=== PATIENT | male | born 1945 | race Caucasian/White ===

== ENCOUNTER 2020-03-12 08:35 | Outpatient (REF) | payer MEDICARE, SELFPAY ==
--- NOTE | 2020-03-12 11:12 | XR_ITS ---
EXAMINATION: XR BILATERAL SHOULDERS. CLINICAL INFORMATION: Pain in bilateral shoulder. COMPARISON: None TECHNIQUE: 3 views each shoulder. FINDINGS: RIGHT SHOULDER: There is significant loss of glenohumeral joint space with periarticular spurring. The AC joint space is reduced as well. There is a soft tissue calcification along rotator cuff likely secondary to calcific tendinitis or partial tear. No lytic or sclerotic process seen. LEFT SHOULDER: There is mild reduction in left glenohumeral joint space with periarticular spurring. No bony erosive changes or loose bodies seen. AC joint is normal. Mild spurring of greater tuberosity is noted. XR/XR shoulder RT min 2V IMPRESSION: Degenerative arthritic changes bilateral shoulder joints and AC joints. There is a soft tissue calcification along the distal right rotator cuff likely from calcific tendinitis or partial tear. There is soft tissue calcification adjacent to the left greater tuberosity likely from calcific tendinitis or partial tear.
--- NOTE | 2020-03-12 11:12 | XR_ITS ---
EXAMINATION: XR BILATERAL SHOULDERS. CLINICAL INFORMATION: Pain in bilateral shoulder. COMPARISON: None TECHNIQUE: 3 views each shoulder. FINDINGS: RIGHT SHOULDER: There is significant loss of glenohumeral joint space with periarticular spurring. The AC joint space is reduced as well. There is a soft tissue calcification along rotator cuff likely secondary to calcific tendinitis or partial tear. No lytic or sclerotic process seen. LEFT SHOULDER: There is mild reduction in left glenohumeral joint space with periarticular spurring. No bony erosive changes or loose bodies seen. AC joint is normal. Mild spurring of greater tuberosity is noted. XR/XR shoulder LT min 2V IMPRESSION: Degenerative arthritic changes bilateral shoulder joints and AC joints. There is a soft tissue calcification along the distal right rotator cuff likely from calcific tendinitis or partial tear. There is soft tissue calcification adjacent to the left greater tuberosity likely from calcific tendinitis or partial tear.
== END 2020-03-12 08:36 | disposition home or self-care (01) ==
LOC: HO.HOSX 08:35
PROVIDERS: Visit Provider Orthopaedic Surgery
DX: M25.512 Pain in left shoulder (principal); M25.511 Pain in right shoulder
CPT/HCPCS: 73030; 99202

== ENCOUNTER → 2020-03-17 08:47 | Outpatient (REF) | payer MEDICARE, SELFPAY | LOC: HO.SL 08:47 | PROVIDERS: PCP Family Medicine; Visit Provider Family Medicine | DX: R60.0 Localized edema (principal); G47.30 Sleep apnea, unspecified | CPT/HCPCS: 95806 ==

== ENCOUNTER 2020-05-11 09:00 | Outpatient (RCR) | payer MEDICARE, SELFPAY ==
--- NOTE | 2020-03-30 13:51 | MHC.PT.EP ---
[facility] [place] Office [place] Office [place] Office [address] Avi Gamez [address] [phone] F: [phone] F: [phone] F: [phone] F: [phone] Physical Therapy Plan of Care Date of Evaluation: 03/30/20 Date of Surgery: Diagnosis: bilateral OA of shoulders with pain Assessment: The patient has general symmetrical decreased ROM in his cervical spine that seems to be age related. His ROM in his cervical spine is pain free. His shoulder ROM is also globally decreased and relatively pain free. He has 5/5 strength in bilateral UE. He has numbness and tingling in his hands only at night. I did a few CTS special tests which were positive. I recommended him to wear a CTS brace to bring his wrist to neutral to r/o CTS as cause of pain. Frequency and Duration: The patient will be seen 2x/week x 4 weeks Short Term Goals: -Pt to able to demonstrate proper sitting posture with the use of a lumbar roll to decrease aggravating factors. - Pt to be able to demonstrate proper posture for common leisure activities such as crocheting and phone/tablet use. 2 weeks - For the patient to demonstrate proper upright sitting posture with use of the lumbar roll to improve compliance and carryover. Detention Goals: 4 weeks ? The patient to be able to return to all functional reaching, self care ADL's without any limitation from pain or loss of ROM. 4 weeks ? The patient to be able to return to all functional reaching, self care ADL's without any limitation from pain or loss of ROM. Treatment Plan: Modalities to reduce pain, spasms and effusion. Manual therapy to restore motion and function. Therapeutic exercise to improve strength and flexibility. Neuromuscular re-education for posture and balance. Therapeutic activities to return to functional activities of daily living. Electronically signed by: Katty Camacho PT DPT Please sign and return to therapist. Thank you for your referral.
--- NOTE | 2020-06-04 08:48 | MHC.PT.DC ---
[facility] [place] Office [place] Office [place] Office [address] Avi Gamez [address] [phone] F: [phone] F: [phone] F: [phone] F: [phone] Physical Therapy Discharge Report Diagnosis: bilateral OA of shoulders with pain Date of Surgery: Date of Evaluation: 03/30/20 Date of Discharge: 06/04/20 Treatments to Date: 11 Cancellations to Date: 0 No Shows to Date: 0 Discharge Status: Achieved Goals Improved Function Discharge Summary: Pt reports no pain with today's exercises. Pt will was issued a HEP. Exercises printed and in the chart. He was issued theraband for his HEP. Electronically signed by: Katty Camacho PT DPT Please sign and return to therapist. Thank you for your referral.
== END 2020-06-04 15:23 | disposition other institution (70) ==
LOC: HO.PT 09:00
PROVIDERS: PCP Family Medicine; Visit Provider Orthopaedic Surgery
DX: M19.019 Primary osteoarthritis, unspecified shoulder (principal)
CPT/HCPCS: 97110; 97112; 97140; 97162

== ENCOUNTER 2020-05-20 09:29 | Emergency (ER) | payer MEDICARE, SELFPAY ==
--- NOTE | ~2020-05-20 | XR_ITS ---
EXAMINATION: XR CHEST CLINICAL INFORMATION: Dyspnea COMPARISON: Chest radiographs 03/14/2019, 08/23/2013 TECHNIQUE: Portable upright AP view of the chest was obtained. FINDINGS: There is enlarged cardiopericardial silhouette similar to prior studies. There is been prior median sternotomy. The vascularity is normal. There is no vascular congestion or airspace consolidation or effusion. No pneumothorax or pleural reaction. The visualized hilar and mediastinal contours and bony structures are unremarkable. XR/XR chest 1V IMPRESSION: No acute intrathoracic disease.
--- NOTE | 2020-05-20 09:34 | ED_ITS ---
HPI - URI/Sore Throat General Chief Complaint: Upper Respiratory Symptoms Stated Complaint: FLU LIKE Time Seen by Provider: 05/20/20 09:34 Source: patient and endocrinology specialist Mode of arrival: ambulatory Limitations: no limitations History of Present Illness MD elicited complaint: fever, cough, rhinorrhea and nasal congestion Onset (ago): day(s) (2) Consistency: constant Severity: mild Description of mucous: clear Able to tolerate fluids by mouth: Yes Exacerbating factors: nothing Relieving factors: nothing Context: sick contacts (lives with daughter who tested positive for COVID 2 weeks ago) Associated symptoms: fever, chills, myalgias, rhinorrhea, cough, chest pain and nausea Treatments prior to arrival: none Related Data Home Medications Medication Instructions Recorded Confirmed amlodipine 10 mg tablet 10 mg PO DAILY 03/12/20 aspirin 81 mg tablet,delayed 81 mg PO DAILY 03/12/20 release carvedilol 25 mg tablet 25 mg PO BID 03/12/20 cholecalciferol (vitamin D3) SUBLINGUAL 03/12/20 furosemide 40 mg tablet 40 mg PO DAILY 03/12/20 omeprazole 20 mg capsule,delayed 20 mg PO DAILY 03/12/20 release rosuvastatin 10 mg tablet 10 mg PO DAILY 03/12/20 Allergies Allergy/AdvReac Type Severity Reaction Status Date / Time morphine [MORPHINE] Allergy Intermediate HALLUCINATI Unverified 12/11/19 18:09 ONS,TACHYCA RDIA morphine Allergy Unknown chills, Uncoded 11/20/19 00:00 vomiting Review of Systems Review of Systems: Constitutional : pos Fever, No Chills ENT/Mouth : No sore throat, pos Rhinorrhea, No Swallowing Difficulty Eyes: No Eye Pain, No Swelling, No Redness Cardiovascular : pos Chest Pain, positive SOB, No Orthopnea, positive chronic bilateral Edema Respiratory : No Cough, No Sputum, No Wheezing, positive dyspnea Gastrointestinal : pos Nausea, No Vomiting, No Diarrhea, No abdominal Pain, No Hematochezia, No Melena Genitourinary : No Dysuria, No Urinary Frequency, No Hematuria Musculoskeletal : No joint pain, pos Myalgias Skin : No Skin Lesions, No rash Neuro : No Weakness, No Numbness, No Dizziness, No Headache Psych : No Anxiety/Panic, No Depression Heme/Lymph: No Bruising, No Lymphadenopathy Endocrine : No Polyuria, No Polydipsia All other systems reviewed and are negative PMFSH Past Medical History Medical History Diabetes Hypertension Surgical History History of open heart surgery Social History Social History Alcohol intake: never Smoking Status: Never smoker Use of substances other than those prescribed or required for medical reasons: No Advance Directives: No Advance Directives Information Provided: No 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al status: retired 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 Physical Exam Vital Signs: Vital Signs: Last Vital Signs Temp 99.1 F 05/20/20 10:14 Pulse 68 05/20/20 12:07 Resp 16 05/20/20 12:07 BP 148/67 H 05/20/20 12:07 Pulse Ox 97 05/20/20 12:07 Body Mass Index 29.0 Appearance: Alert. Oriented X3. No acute distress. Eyes: Pupils equal, round and reactive to light. ENT: Pharynx normal. Neck: Normal inspection. Neck supple. CVS: Normal heart rate and rhythm. Pulses normal. Respiratory: No respiratory distress. Breath sounds normal. Abdomen: Soft and nontender. Skin: Skin warm and dry. Normal skin color. Normal skin turgor. Extremities: No lower extremity edema. No calf ttp Neuro: Oriented X 3. No motor deficit. No sensory deficit. Course Course Course Narrative: EKG nonischemic, repeat trop flat CXR negative, no hypoxia stable for DC at this time renal at baseline MDM - URI/Sore Throat MDM Narrative Medical decision making narrative: 74 yo male two days of body aches, nausea, cough, runny nose, some vague chest tightness, no dyspnea no hypoxia chronic LE edema - lives with daughter who tested positive for COVID 2 weeks ago at this time not toxic, no tachycardia or hypoxia no calf pain doubt PE - will obtain basic labs, EKG, CXR, COVID swab, troponin x 1, tylenol Lab Data Result diagrams: 05/20/20 10:03 05/20/20 10:03 Labs: Lab Results 05/20/20 05/20/20 05/20/20 Range/Units 10:03 10:03 10:03 WBC 4.5 L (4.8-10.8) X10*3/uL RBC 3.45 L (4.60-5.80) X10*6/uL Hgb 10.9 L (14.0-18.0) g/dl Hct 31.4 L (42-52) % MCV 91.0 (80-98) fL MCH 31.6 (27.0-33.0) pg MCHC 34.7 (31.0-36.0) g/dl RDW 13.2 (11.0-16.0) % Plt Count 154 L (160-400) X10*3/uL MPV 10.7 (9.4-12.4) fL Immature Gran % (Auto) 0.2 (0.0-0.4) % Neut % (Auto) 71.8 (45-73) % Lymph % (Auto) 15.0 L (20-40) % [place] % (Auto) 12.3 H (2-11) % Eos % (Auto) 0.7 (0-4) % Baso % (Auto) 0.0 (0-2) % Lymph # (Auto) 0.7 L (1.2-4.9) X10*3/uL [place] # (Auto) 0.6 (0.1-1.2) X10*3/uL Eos # (Auto) 0.0 (0.0-0.4) X10*3/uL Baso # (Auto) 0.0 (0.0-0.2) X10*3/uL Abs Immat Gran (auto) 0.01 (0.00-0.03) X10*3/uL Absolute Neuts (auto) 3.3 (2.0-8.3) X10*3/uL Absolute Nucleated RBC 0.000 (0.0-0.012) X10*3/uL Nucleated RBC % (auto) 0.0 (0.0-0.2) /100WBC Smear Tech's Comments VERIFIED Hold Blue Top SEE NOTE Sodium 137 (135-145) mmol/L Potassium 3.8 (3.3-5.1) mmol/L Chloride 103 (96-108) mmol/L Carbon Dioxide 25 (22-29) mmol/L Anion Gap 13 (12-20) BUN 17 H (9-16) mg/dL Creatinine 2.16 H (0.5-1.4) mg/dL Estim Creat Clear Calc 32.0 Estimated GFR 30 Random Glucose 273 H (60-115) mg/dL Calcium 8.6 (8.4-10.2) mg/dL Magnesium 1.5 L (1.6-2.6) mg/dL Ferritin 271 H (20-250) ng/mL Total Bilirubin 0.3 (0.0-1.0) mg/dL Direct Bilirubin 0.2 (0.0-0.5) mg/dL AST 32 (5-37) U/L ALT 15 (0-40) U/L Alkaline Phosphatase 29 L (39-117) U/L Lactate Dehydrogenase 193 (118-273) U/L Troponin I High Sens (<3.5-35.0) ng/L B-Natriuretic Peptide (<100) pg/mL Total Protein 6.0 L (6.5-8.0) g/dL Albumin 3.4 L (3.5-5.0) g/dL Coronavirus (PCR) (Negative) Influenza Type A (PCR) (Negative) Influenza Type B (PCR) (Negative) RSV RNA Qual (PCR) (Negative) 05/20/20 05/20/20 05/20/20 Range/Units 10:03 10:03 12:40 WBC (4.8-10.8) X10*3/uL RBC (4.60-5.80) X10*6/uL Hgb (14.0-18.0) g/dl Hct (42-52) % MCV (80-98) fL MCH (27.0-33.0) pg MCHC (31.0-36.0) g/dl RDW (11.0-16.0) % Plt Count (160-400) X10*3/uL MPV (9.4-12.4) fL Immature Gran % (Auto) (0.0-0.4) % Neut % (Auto) (45-73) % Lymph % (Auto) (20-40) % [place] % (Auto) (2-11) % Eos % (Auto) (0-4) % Baso % (Auto) (0-2) % Lymph # (Auto) (1.2-4.9) X10*3/uL [place] # (Auto) (0.1-1.2) X10*3/uL Eos # (Auto) (0.0-0.4) X10*3/uL Baso # (Auto) (0.0-0.2) X10*3/uL Abs Immat Gran (auto) (0.00-0.03) X10*3/uL Absolute Neuts (auto) (2.0-8.3) X10*3/uL Absolute Nucleated RBC (0.0-0.012) X10*3/uL Nucleated RBC % (auto) (0.0-0.2) /100WBC Smear Tech's Comments Hold Blue Top Sodium (135-145) mmol/L Potassium (3.3-5.1) mmol/L Chloride (96-108) mmol/L Carbon Dioxide (22-29) mmol/L Anion Gap (12-20) BUN (9-16) mg/dL Creatinine (0.5-1.4) mg/dL Estim Creat Clear Calc Estimated GFR Random Glucose (60-115) mg/dL Calcium (8.4-10.2) mg/dL Magnesium (1.6-2.6) mg/dL Ferritin (20-250) ng/mL Total Bilirubin (0.0-1.0) mg/dL Direct Bilirubin (0.0-0.5) mg/dL AST (5-37) U/L ALT (0-40) U/L Alkaline Phosphatase (39-117) U/L Lactate Dehydrogenase (118-273) U/L Troponin I High Sens 37.2 H 41.4 H (<3.5-35.0) ng/L B-Natriuretic Peptide 282 H (<100) pg/mL Total Protein (6.5-8.0) g/dL Albumin (3.5-5.0) g/dL Coronavirus (PCR) POSITIVE A (Negative) Influenza Type A (PCR) NEGATIVE (Negative) Influenza Type B (PCR) NEGATIVE (Negative) RSV RNA Qual (PCR) NEGATIVE (Negative) ECG Data Attestation: I personally reviewed and interpreted this ECG as follows: ECG interpretation date: 05/20/20 ECG interpretation time: 10:09 Interpretation: Rate: 75 Rhythm: NSR [place]: normal Normal P waves. Normal AKSHAT. incomplete RBBB ST T wave : nonspecific, no BRENT qTC: normal prior studies: no change from 11/2013 The study has been interpreted contemporaneously by me. . Discharge Plan Discharge Clinical Impression: COVID-19 Patient Disposition: Home, Self-Care Instructions: COVID-19 (Coronavirus Disease 2019) (ED) Additional Instructions: return to ED for any worsening symptoms or concerns IF YOU ARE SO SHORT OF BREATH YOU CANNOT WALK TO YOUR BATHROOM COME BACK TO THE ED Print Language: Micronesian
[2020-05-20 09:46] VITALS: BP 157/75; PULSE 79; RESP 20; TEMP 37.3; O2SAT 97; BMI 29.0
--- NOTE | 2020-05-20 09:51 | ECG_ITS ---
Test Reason : SOB Blood Pressure : / mmHG Vent. Rate : 075 BPM Atrial Rate : 075 BPM P-R Int : 162 ms QRS Dur : 104 ms QT Int : 394 ms P-R-T Axes : 039 026 -21 degrees QTc Int : 439 ms Sinus rhythm with Premature atrial complexes Incomplete right bundle branch block Nonspecific ST abnormality Abnormal ECG When compared to the previous EKG of Premature atrial complexes are now Present Referred By: Nighat Goldsmith Electronically Signed By:EDISON DODSON MD
[2020-05-20 09:53] VITALS: BP 157/75; PULSE 79; RESP 20; TEMP 37.3; O2SAT 97
[2020-05-20 10:14] VITALS: BP 157/75; PULSE 79; RESP 20; TEMP 37.3; O2SAT 97
[2020-05-20 10:16] LABS: Eosinophils Percent Auto 0.7 % (0-4); Hematocrit 31.4 % (42-52); Hemoglobin 10.9 g/dl (14.0-18.0); Imm Gran Abs Auto 0.01 X10*3/uL (0.00-0.03); Imm Gran Pct Auto 0.2 % (0.0-0.4); Lymphocytes Absolute Auto 0.7 X10*3/uL (1.2-4.9); MANUAL DIFF FLAG SCAN; Mean Corpuscular HGB Conc 34.7 g/dl (31.0-36.0); Mean Corpuscular Hemoglobin 31.6 pg (27.0-33.0); Mean Platelet Volume 10.7 fL (9.4-12.4); Monocytes Absolute Auto 0.6 X10*3/uL (0.1-1.2); Monocytes Percent Auto 12.3 % (2-11); Neutrophils Absolute Auto 3.3 X10*3/uL (2.0-8.3); Neutrophils Percent Auto 71.8 % (45-73); Platelet Count 154 X10*3/uL (160-400); Red Blood Count 3.45 X10*6/uL (4.60-5.80); Red Cell Distribution Width 13.2 % (11.0-16.0); SCAN SMEAR FLAG 1; White Blood Count 4.5 X10*3/uL (4.8-10.8)
[2020-05-20] MEDS: Acetaminophen 325 MG TABLET 650 MG PO (10:31)
[2020-05-20 10:32] VITALS: BP 143/71; PULSE 73; RESP 16; O2SAT 96
[2020-05-20 10:40] LABS: Alanine Aminotransferase 15 U/L (0-40); Albumin Level 3.4 g/dL (3.5-5.0); Alkaline Phosphatase 29 U/L (39-117); Anion Gap 13 (12-20); Aspartate Amino Transferase 32 U/L (5-37); Bilirubin Direct 0.2 mg/dL (0.0-0.5); Bilirubin Total 0.3 mg/dL (0.0-1.0); Blood Urea Nitrogen 17 mg/dL (9-16); Calcium 8.6 mg/dL (8.4-10.2); Carbon Dioxide 25 mmol/L (22-29); Chloride 103 mmol/L (96-108); Estimated Glomerular Filt Rate 30; Glucose Random 273 mg/dL (60-115); Lactate Dehydrogenase 193 U/L (118-273); Magnesium 1.5 mg/dL (1.6-2.6); Potassium 3.8 mmol/L (3.3-5.1); Sodium 137 mmol/L (135-145)
[2020-05-20 10:43] LABS: SLIDE REVIEW VERIFIED
[2020-05-20 10:53] LABS: Influenza A PCR NEGATIVE (Negative); Influenza B PCR NEGATIVE (Negative); Resp Syncy Virus RNA Qual PCR NEGATIVE (Negative); SARS COV2 PCR INHOUSE POSITIVE (Negative)
[2020-05-20 10:56] LABS: B Type Natriuretic Peptide 282 pg/mL (<100); Troponin-I High Sensitivity 37.2 ng/L (<3.5-35.0)
[2020-05-20 11:02] LABS: Ferritin 271 ng/mL (20-250)
[2020-05-20] MEDS: Magnesium Oxide 400 MG TABLET 800 MG PO (12:06)
[2020-05-20 12:07] VITALS: BP 148/67; PULSE 68; RESP 16; O2SAT 97
[2020-05-20 13:20] LABS: Troponin-I High Sensitivity 41.4 ng/L (<3.5-35.0)
== END 2020-05-20 13:45 | disposition home or self-care (01) ==
PROVIDERS: Emergency Provider Emergency Medicine; PCP Family Medicine
DX: U07.1 COVID-19 (principal); R50.9 Fever, unspecified; E11.9 Type 2 diabetes mellitus without complications; I10 Essential (primary) hypertension; Z79.899 Other long term (current) drug therapy
CPT/HCPCS: 0241U; 36415; 71045; 80048; 80076; 82728; 83615; 83735; 83880; 84484; 85025; 93005; 99284; 99285

== ENCOUNTER 2020-05-26 10:16 | Inpatient (IN) | payer MEDICARE, SELFPAY ==
--- NOTE | ~2020-05-26 | CT_ITS ---
EXAMINATION: CT ABDOMEN AND PELVIS WITHOUT CONTRAST CLINICAL INFORMATION: Pain right upper quadrant and right lower quadrant. Black stool. COMPARISON: CT abdomen and pelvis noncontrast 12/12/2013. TECHNIQUE: Multidetector volumetric imaging was performed from the superior aspect of the liver through the pubic symphysis. Sagittal and coronal reformatted images were obtained on the technologist's workstation. No oral or intravenous contrast. This CT examination was performed using dose optimization techniques as appropriate, variously including the following: *Automated exposure control *Adjustment of mA and/or kV according to patient size (this includes techniques or standardized protocols for targeted exams where dose is matched to indication/reason for exam; i.e. extremities or head) *Use of iterative reconstruction technique DLP: 658 mGy-cm FINDINGS: LUNG BASES: There are scattered accentuated subpleural lines and posterior dependent atelectasis. There is nonspecific subpleural opacity right anterior base extending beyond the [id number], 0.8 cm. LIVER, GALLBLADDER, AND BILIARY TREE: Liver is normal in size and smooth in contour and uniform in attenuation. No focal hepatic parenchymal lesion on noncontrast exam or intrahepatic ductal dilatation. Prior cholecystectomy. Common duct unremarkable. PANCREAS: Unremarkable. SPLEEN: Unremarkable. ADRENAL GLANDS: Unremarkable. KIDNEYS AND URETERS: The kidneys are similar in size and uniform in attenuation. There is no hydronephrosis or hydroureter. No visible urinary tract calculi. There are accentuated perinephric space septations similar to prior exam, chronic finding. There is respiratory motion artifact. BLADDER: Chronic posterior right bladder diverticulum approximately 3.1 x 1.7 cm. Prior measurement 2.8 x 1[address] 2014. GASTROINTESTINAL TRACT: Prior right hemicolectomy with ileocolic anastomosis. There is no obstruction or focal inflammatory changes in the bowel or mesentery. No pneumatosis or free air. No ascites or fluid collection. ABDOMINAL WALL: Chronic fat-containing left inguinal hernia measuring approximately 3.3 cm in diameter, decreased in size from prior exam 2014. There is some overlying linear scarring in the subcutaneous soft tissues, also decreased. LYMPH NODES: No lymphadenopathy. VASCULAR: Unremarkable. PELVIC VISCERA: Unremarkable. OSSEOUS STRUCTURES: No acute bony abnormality. There are chronic degenerative changes lumbosacral spine, chronic osteitis pubis, and chronic calcific tendinosis at the bilateral ischial tuberosities at origin hamstrings. CT/CT abdomen pelvis wo con IMPRESSION: 1. Prior right hemicolectomy. No bowel obstruction or focal inflammatory changes. 2. Prior cholecystectomy. No ductal dilatation. 3. No hydronephrosis or calculi. 4. Chronic fat-containing left inguinal hernia, decreased from prior exam 2013. 5. Nonspecific 8 mm subpleural density right anterior lung base extending beyond field of view.
[2020-05-26 10:28] VITALS: BP 167/81; PULSE 72; RESP 20; TEMP 37.2; O2SAT 100; BMI 28.8
[2020-05-26 10:50] LABS: Hematocrit 35.4 % (42-52); Hemoglobin 12.5 g/dl (14.0-18.0); Imm Gran Abs Auto 0.01 X10*3/uL (0.00-0.03); Imm Gran Pct Auto 0.3 % (0.0-0.4); Lymphocytes Absolute Auto 0.8 X10*3/uL (1.2-4.9); Lymphocytes Percent Auto 25.2 % (20-40); MANUAL DIFF FLAG NO; Mean Corpuscular HGB Conc 35.3 g/dl (31.0-36.0); Mean Corpuscular Hemoglobin 30.9 pg (27.0-33.0); Mean Corpuscular Volume 87.6 fL (80-98); Mean Platelet Volume 10.7 fL (9.4-12.4); Monocytes Absolute Auto 0.2 X10*3/uL (0.1-1.2); Monocytes Percent Auto 5.8 % (2-11); Neutrophils Absolute Auto 2.3 X10*3/uL (2.0-8.3); Neutrophils Percent Auto 68.7 % (45-73); Platelet Count 144 X10*3/uL (160-400); Red Blood Count 4.04 X10*6/uL (4.60-5.80); Red Cell Distribution Width 12.6 % (11.0-16.0); White Blood Count 3.3 X10*3/uL (4.8-10.8)
[2020-05-26 11:03] LABS: OBS Int Ctl Valid YES; OBS1 NEG (NEG)
[2020-05-26] MEDS: 0.9 % Sodium Chloride 1,000 ML 999 ML IVCONT ×2 (11:09→12:30)
[2020-05-26 11:29] LABS: Alanine Aminotransferase 37 U/L (0-40); Alkaline Phosphatase 36 U/L (39-117); Anion Gap 14 (12-20); Aspartate Amino Transferase 74 U/L (5-37); Bilirubin Total 0.5 mg/dL (0.0-1.0); Calcium 7.8 mg/dL (8.4-10.2); Carbon Dioxide 24 mmol/L (22-29); Chloride 102 mmol/L (96-108); Glucose Random 158 mg/dL (60-115); Potassium 3.7 mmol/L (3.3-5.1); Sodium 136 mmol/L (135-145); Total Protein 5.8 g/dL (6.5-8.0)
--- NOTE | 2020-05-26 11:35 | ED_ITS ---
HPI - Abdominal Pain General Chief Complaint: Abdominal Pain Stated Complaint: covid + abd pain Time Seen by Provider: 05/26/20 10:38 Source: patient Mode of arrival: ambulatory History of Present Illness HPI narrative: 74-year-old male with a past medical history of diabetes, hypertension, open heart surgery, COVID-19 positive on 05/20, presenting to the ED complaining of abdominal pain and diarrhea x5 days with decreased p.o. intake. Admits to black stools x3 days. Denies fever, chills, nausea/vomiting, dysuria/hematuria, cough chest pain, shortness of breath, rectal bleeding Related Data Home Medications Medication Instructions Recorded Confirmed amlodipine 10 mg tablet 10 mg PO DAILY 03/12/20 aspirin 81 mg tablet,delayed 81 mg PO DAILY 03/12/20 release carvedilol 25 mg tablet 25 mg PO BID 03/12/20 cholecalciferol (vitamin D3) SUBLINGUAL 03/12/20 furosemide 40 mg tablet 40 mg PO DAILY 03/12/20 omeprazole 20 mg capsule,delayed 20 mg PO DAILY 03/12/20 release rosuvastatin 10 mg tablet 10 mg PO DAILY 03/12/20 Allergies Allergy/AdvReac Type Severity Reaction Status Date / Time morphine [MORPHINE] Allergy Intermediate HALLUCINATI Unverified 12/11/19 18:09 ONS,TACHYCA RDIA morphine Allergy Unknown chills, Uncoded 11/20/19 00:00 vomiting Review of Systems Review of Systems Constitutional: No Fever, No Chills, +Fatigue, +Malaise Cardiovascular: No Chest Pain, No SOB, No Edema, No Palpitations Respiratory: No Cough, No Wheezing, No Dyspnea Gastrointestinal: No Nausea, No Vomiting, + Diarrhea, No Constipation, + Abdominal pain, No Hematochezia, +black stool Genitourinary: No Dysuria, No Urinary Frequency, No Hematuria, No Flank Pain Musculoskeletal: No joint pain, No Myalgias, No Joint Swelling Skin: No Skin Lesions, No rash Neuro: No Loss of Consciousness, No Dizziness, No Headache Yes all other systems are reviewed and are negative Physical Exam Vital Signs: Vital Signs: Last Vital Signs Temp 99 F 05/26/20 10:28 Pulse 72 05/26/20 10:28 Resp 20 05/26/20 10:28 BP 167/81 H 05/26/20 10:28 Pulse Ox 100 05/26/20 10:28 Body Mass Index 28.8 Const: General: cooperative, healthy appearing and no acute distress Orientation/consciousness: patient oriented x3 Limitations: no limitations HENMT: Head: Yes normal to inspection Ears: hearing grossly normal bilaterally General nose exam: Normal external nose present Face and sinus: Yes normal facial exam Eyes: General: appearance normal, both eyes and all related structures EOM: EOMs intact bilaterally Neck: Neck: Yes normal visual inspection and Yes no meningeal signs Resp: Effort & Inspection: normal respiratory effort Auscultation: clear to auscultation bilaterally, no rales, no rhonchi and no wheezes Cardio: Rate: regular rate Heart sounds: S1 normal heart sound present and S2 normal heart sound present GI: Inspection: Yes normal to inspection Palpation (GI): Soft to palpation, Tenderness to palpation present (GI) in the epigastrum, in the RLQ and in the RUQ; with no rebound tenderness, no guarding and not rigid : General: Yes no CVA tenderness Back/Spine/Pelvis: Back: no CVA tenderness Skin: Rashes: no rashes Wounds: no wounds Neuro: General: patient oriented x3 and no meningeal signs Gait exam (Neuro): Normal gait present Extrem: General: Yes normal to inspection Course Course Course Narrative: -leukopenia as expected from COVID-19. H&H stable. Worsening acute on chronic MERLE with BUN/creatinine 35/4.05 likely from dehydration > will give 2 L IVF and repeat -lipase 115, occult stool negative -UA with RBCs, not infected CT abdomen pelvis wo con IMPRESSION: 1. Prior right hemicolectomy. No bowel obstruction or focal inflammatory changes. 2. Prior cholecystectomy. No ductal dilatation. 3. No hydronephrosis or calculi. 4. Chronic fat-containing left inguinal hernia, decreased from prior exam 2013. 5. Nonspecific 8 mm subpleural density right anterior lung base extending beyond field of view MDM - Abdominal Pain MDM Narrative Medical decision making narrative: 74-year-old male with a past medical history of diabetes, hypertension, open heart surgery, COVID-19 positive on 05/20, presenting to the ED complaining of abdominal pain and diarrhea x5 days with decreased p.o. intake. Admits to black stools x3 days. On exam VSS, NAD/nontoxic-appearing, physical exam as above. Concern for GI bleed vs gastroenteritis or colitis vs cholecystitis/cholelithiasis vs pancreatitis vs appendicitis. Lower concern for diverticulitis Plan: Labs, UA, CT, IVF, re-evaluate Medical Records Attestation: I reviewed the patient's medical records. Lab Data Attestation: I reviewed the patient's lab results. Result diagrams: 05/26/20 10:42 05/26/20 10:42 Labs: Lab Results 05/26/20 05/26/20 05/26/20 Range/Units 10:42 10:42 10:42 WBC 3.3 L (4.8-10.8) X10*3/uL RBC 4.04 L (4.60-5.80) X10*6/uL Hgb 12.5 L (14.0-18.0) g/dl Hct 35.4 L (42-52) % MCV 87.6 (80-98) fL MCH 30.9 (27.0-33.0) pg MCHC 35.3 (31.0-36.0) g/dl RDW 12.6 (11.0-16.0) % Plt Count 144 L (160-400) X10*3/uL MPV 10.7 (9.4-12.4) fL Immature Gran % (Auto) 0.3 (0.0-0.4) % Neut % (Auto) 68.7 (45-73) % Lymph % (Auto) 25.2 (20-40) % [place] % (Auto) 5.8 (2-11) % Eos % (Auto) 0.0 (0-4) % Baso % (Auto) 0.0 (0-2) % Lymph # (Auto) 0.8 L (1.2-4.9) X10*3/uL [place] # (Auto) 0.2 (0.1-1.2) X10*3/uL Eos # (Auto) 0.0 (0.0-0.4) X10*3/uL Baso # (Auto) 0.0 (0.0-0.2) X10*3/uL Abs Immat Gran (auto) 0.01 (0.00-0.03) X10*3/uL Absolute Neuts (auto) 2.3 (2.0-8.3) X10*3/uL Absolute Nucleated RBC 0.000 (0.0-0.012) X10*3/uL Nucleated RBC % (auto) 0.0 (0.0-0.2) /100WBC Hold Blue Top SEE NOTE Sodium 136 (135-145) mmol/L Potassium 3.7 (3.3-5.1) mmol/L Chloride 102 (96-108) mmol/L Carbon Dioxide 24 (22-29) mmol/L Anion Gap 14 (12-20) BUN 35 H D (9-16) mg/dL Creatinine 4.05 H* (0.5-1.4) mg/dL Estim Creat Clear Calc 17.6 Estimated GFR 15 Random Glucose 158 H D (60-115) mg/dL Calcium 7.8 L D (8.4-10.2) mg/dL Magnesium 1.7 (1.6-2.6) mg/dL Total Bilirubin 0.5 (0.0-1.0) mg/dL AST 74 H (5-37) U/L ALT 37 (0-40) U/L Alkaline Phosphatase 36 L D (39-117) U/L Total Protein 5.8 L (6.5-8.0) g/dL Albumin 3.0 L (3.5-5.0) g/dL Lipase 115 H (8-78) U/L Urine Color Urine Appearance Urine pH (5.0-8.0) Ur Specific [place] (1.005-1.025) Urine Protein (NEG-TRACE) MG/DL Urine Glucose (UA) (NEG) MG/DL Urine Ketones (NEG) MG/DL Urine Blood (NEG) Urine Nitrite (NEG) Ur Leukocyte Esterase (NEG) Urine RBC (0) /HPF Urine WBC (0-4) /HPF Ur Squamous Epith Cells /LPF Amorphous Sediment /LPF Urine Bacteria /LPF Urine Mucus /LPF Stool Occult Blood (NEG) 05/26/20 05/26/20 Range/Units 10:53 11:44 WBC (4.8-10.8) X10*3/uL RBC (4.60-5.80) X10*6/uL Hgb (14.0-18.0) g/dl Hct (42-52) % MCV (80-98) fL MCH (27.0-33.0) pg MCHC (31.0-36.0) g/dl RDW (11.0-16.0) % Plt Count (160-400) X10*3/uL MPV (9.4-12.4) fL Immature Gran % (Auto) (0.0-0.4) % Neut % (Auto) (45-73) % Lymph % (Auto) (20-40) % [place] % (Auto) (2-11) % Eos % (Auto) (0-4) % Baso % (Auto) (0-2) % Lymph # (Auto) (1.2-4.9) X10*3/uL [place] # (Auto) (0.1-1.2) X10*3/uL Eos # (Auto) (0.0-0.4) X10*3/uL Baso # (Auto) (0.0-0.2) X10*3/uL Abs Immat Gran (auto) (0.00-0.03) X10*3/uL Absolute Neuts (auto) (2.0-8.3) X10*3/uL Absolute Nucleated RBC (0.0-0.012) X10*3/uL Nucleated RBC % (auto) (0.0-0.2) /100WBC Hold Blue Top Sodium (135-145) mmol/L Potassium (3.3-5.1) mmol/L Chloride (96-108) mmol/L Carbon Dioxide (22-29) mmol/L Anion Gap (12-20) BUN (9-16) mg/dL Creatinine (0.5-1.4) mg/dL Estim Creat Clear Calc Estimated GFR Random Glucose (60-115) mg/dL Calcium (8.4-10.2) mg/dL Magnesium (1.6-2.6) mg/dL Total Bilirubin (0.0-1.0) mg/dL AST (5-37) U/L ALT (0-40) U/L Alkaline Phosphatase (39-117) U/L Total Protein (6.5-8.0) g/dL Albumin (3.5-5.0) g/dL Lipase (8-78) U/L Urine Color YELLOW Urine Appearance CLEAR Urine pH 6.5 (5.0-8.0) Ur Specific [place] 1.015 (1.005-1.025) Urine Protein 3+ H (NEG-TRACE) MG/DL Urine Glucose (UA) 100 H (NEG) MG/DL Urine Ketones NEG (NEG) MG/DL Urine Blood 2+ H (NEG) Urine Nitrite NEG (NEG) Ur Leukocyte Esterase NEG (NEG) Urine RBC 5-9 H (0) /HPF Urine WBC 0-2 (0-4) /HPF Ur Squamous Epith Cells TRACE /LPF Amorphous Sediment 1+ /LPF Urine Bacteria NONE /LPF Urine Mucus TRACE /LPF Stool Occult Blood NEG (NEG) [facility] Past Medical History Attestation statement: The following information was validated with the patient. Medical History Diabetes Hypertension Surgical History History of open heart surgery Social History Social History Alcohol intake: never Smoking Status: Never smoker Advance Directives: No Advance Directives Information Provided: Yes 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al status: retired 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
[2020-05-26 11:48] LABS: Blood Urea Nitrogen 35 mg/dL (9-16); Creatinine Clr Calc Pharmacy 17.6; Estimated Glomerular Filt Rate 15
[2020-05-26 11:49] LABS: Lipase 115 U/L (8-78); Magnesium 1.7 mg/dL (1.6-2.6)
--- NOTE | 2020-05-26 11:49 | PC.NURSE ---
MILD INCREASED SOB WITH EXERTION VOIDED 300ML
[2020-05-26 12:10] LABS: Glucose Urine UA 100 MG/DL (NEG); Leukocyte Esterase Urine NEG (NEG); Nitrite Urine NEG (NEG); PH 6.5 (5.0-8.0); Specific Gravity - Urine 1.015 (1.005-1.025); Urine Blood 2+ (NEG); Urine Ketones NEG (NEG); Urine Protein 3+ MG/DL (NEG-TRACE)
[2020-05-26 12:12] LABS: Appearance Urine CLEAR; Color Urine YELLOW
[2020-05-26 12:24] LABS: Amorphous Sediment Urine 1+ /LPF; Mucus Urine TRACE /LPF; Squamous Epithelial Cell Urine TRACE /LPF; WBC Urine 0-2 /HPF (0-4)
[2020-05-26] MEDS: Famotidine/PF 20 MG/2 ML VIAL IVPUSH ×2 (12:30→22:42)
[2020-05-26] MEDS: Lidocaine HCl Viscous 2 % 15 ML SOLUTION MUCOUS MEM (12:31)
[2020-05-26] MEDS: Magnesium Hydrox/Alum Hydrox 30 ML ORAL.SUSP PO (12:31)
[2020-05-26 14:03] VITALS: BP 152/82; PULSE 67; RESP 18; O2SAT 96
--- NOTE | 2020-05-26 14:04 | PC.NURSE ---
VOIDED 250ML
[2020-05-26 14:45] LABS: Alanine Aminotransferase 32 U/L (0-40); Albumin Level 2.6 g/dL (3.5-5.0); Alkaline Phosphatase 30 U/L (39-117); Anion Gap 11 (12-20); Aspartate Amino Transferase 68 U/L (5-37); Bilirubin Total 0.4 mg/dL (0.0-1.0); Blood Urea Nitrogen 33 mg/dL (9-16); Calcium 7.2 mg/dL (8.4-10.2); Carbon Dioxide 23 mmol/L (22-29); Chloride 107 mmol/L (96-108); Creatinine Clr Calc Pharmacy 19.2; Estimated Glomerular Filt Rate 16; Glucose Random 128 mg/dL (60-115); Potassium 3.5 mmol/L (3.3-5.1); Sodium 137 mmol/L (135-145); Total Protein 5.1 g/dL (6.5-8.0)
[2020-05-26] MEDS: Dicyclomine HCl 10 MG CAPSULE 20 MG PO (16:26)
[2020-05-26 16:28] VITALS: BP 160/85; PULSE 71; RESP 16; TEMP 36.7; O2SAT 96
--- NOTE | 2020-05-26 16:28 | PC.NURSE ---
MEDICATED FOR PAIN 11/02 CHARTED PLAN IS FOR ADMISSION
[2020-05-26 17:43] VITALS: BP 148/73; PULSE 66; RESP 14; O2SAT 98
--- NOTE | 2020-05-26 17:55 | PC.NURSE ---
[employer]ING [employer] WAS HERE FOR ADMISSION ASSESSMENT
--- NOTE | 2020-05-26 18:11 | HP_ITS ---
DATE OF SERVICE: 05/26/2020 CHIEF COMPLAINT: Abdominal pain. HISTORY OF PRESENT ILLNESS: 74-year-old Maori-speaking male, presenting to the ER with complaints of 5 days of abdominal pain and black stool. He reports poor appetite with nausea. He reported at one point over the last 5 days, he had a fever. He reports that he is on aspirin daily and occasionally takes ibuprofen. He did note diarrhea with black stool. In the ER, abdominal and pelvic CT showed prior right hemicolectomy with no bowel obstruction, chronic fat containing left inguinal hernia and prior cholecystectomy. His vital signs are stable, no fever noted. Labs all within acceptable limits. He does have a history of chronic kidney disease. His creatinine today is mildly above baseline. Lipase 115. Urinalysis negative, stool occult negative, coronavirus positive from May 20. The patient received 2 L of IV fluids, IV Pepcid. The patient will be admitted for further management and treatment of possible GI bleed with abdominal pain. PAST MEDICAL HISTORY: 1. Coronary artery disease, status post CABG. 2. Diabetes mellitus. 3. Hypertension. 4. CKD. 5. Hemicolectomy. 6. Cholecystectomy. FAMILY HISTORY: Both parents with heart disease. SOCIAL HISTORY: Lives with his family. Denies any alcohol, tobacco, or illicit drug use. Occasionally uses a cane and a walker. ALLERGIES: ALLERGIES TO MORPHINE. MEDICATIONS: 1. Acetaminophen 650 mg p.o. q.8 hours p.r.n. for pain or fever. 2. Amlodipine 10 mg p.o. daily. 3. Aspirin 81 mg p.o. daily. 4. Baclofen 10 mg p.o. t.i.d. p.r.n. 5. Carvedilol 25 mg p.o. b.i.d. 6. Cholecalciferol 50 mcg p.o. daily. 7. Cyanocobalamin 1000 mcg p.o. daily. 8. Fenofibrate 48 mg at bedtime. 9. Furosemide 40 mg p.o. b.i.d. 10. Insulin aspart 10 units subcu t.i.d. 11. Insulin glargine 32 units subcu at bedtime. 12. Losartan 25 mg p.o. daily. 13. Omeprazole 20 mg p.o. daily. 14. Rosuvastatin calcium 20 mg p.o. at bedtime. REVIEW OF SYSTEMS: CONSTITUTIONAL: Reported fever and decrease in appetite. RESPIRATORY: Denies any shortness of breath, cough, or sputum production. CARDIOVASCULAR: Denies any chest pain, orthopnea, PND, or edema. GASTROINTESTINAL: See HPI. GENITOURINARY: Denies any dysuria, frequency, or hematuria. MUSCULOSKELETAL: Denies any joint pain or swelling. NEUROPSYCH: Denies any weakness or seizures. All other systems reviewed and are negative. PHYSICAL EXAMINATION: CONSTITUTIONAL: Resting in bed, appearing in no acute distress. VITAL SIGNS: 98.1, 71, 16, 160/85, 96% on room air. SKIN: Intact without rash or open sores. HEENT: Head is normocephalic, atraumatic. Eyes, pupils are PERRLA. Sclerae are anicteric. Mouth and Throat: Mucous membranes are intact and moist. NECK: Supple. No lymphadenopathy. No JVD noted. CHEST: Clear to auscultation without wheezes, rhonchi, or rales. HEART: Regular rate and rhythm. Clear S1, S2. No murmurs, rubs, or gallops. ABDOMEN: Positive bowel sounds. Mildly tender to mid lower abdomen. NEURO: The patient is alert and oriented x3. No focal deficits noted. LABORATORY DATA: WBC 3.3, hemoglobin 12.5, hematocrit 35.4, platelets 144. Sodium is 137, potassium is 3.5, chloride is 107, bicarb is 23, BUN is , creatinine is 3.71, glucose is 128. Coronavirus PCR positive from 05/20. ASSESSMENT AND PLAN: 74-year-old man, who is being admitted with abdominal pain, possibly secondary to gastrointestinal bleed. Abdominal CT is not showing any acute active abnormalities. Stool occult was negative. The patient is not noted to be significantly anemic, but he has a history of coronary artery disease, therefore admission and treatment for possible GI bleed is warranted, and with his multiple comorbidities, also put him at high risk for complications if not treated. We will admit the patient with consultation to Gastroenterology and at some point, he will need EGD and colonoscopy. 1. GI bleed. Multiple episodes of diarrhea over the last 5 days with black stool. Stool occult was negative, no significant anemia noted. Gastroenterology consultation. May need EGD or colonoscopy at some point. Continue IV PPI, monitor H and H closely. No active bleeding noted. Hold aspirin for now. 2. Hypertension, blood pressure on the higher side. We will continue amlodipine and losartan. Due to possible GI bleed/blood loss, monitor blood pressure closely to avoid hypotension. 3. Diabetes mellitus. Sliding scale, ADA diet. Continue long-acting insulin. 4. Coronary artery disease. No active chest pain or other cardiac symptoms. We will hold aspirin for now. Continue beta ancelmo and statin. 5. History of lower extremity edema. We will hold Lasix due to mildly worsened renal function. 6. Acute kidney injury on chronic kidney disease. Gentle IV fluid hydration. If no improvement noted, consider consulting Nephrology. 7. Deep vein thrombosis prophylaxis with mechanical compression boots due to possible GI bleed. 8. Case discussed with Dr. Mcclain. 9. Full code. LONNY Petty MD JR/MODL / [id number]
[2020-05-26 19:22] LABS: COVID-19 Test Positive (Negative)
--- NOTE | 2020-05-26 19:37 | PC.NURSE ---
FLOOR UNABLE TO TAKE REPORT AT THIS TIME. PT UP AND AMBULATES TO RESTROOM WITHOUT DIFFICULTY. WILL CONTINUE TO MONITOR PT. PT ALERT, RESPIRATIONS EASY, N/L. SKIN W/D. AWAITING TO GIVE REPORT TO PENDING TRANSFER TO FLOOR.
--- NOTE | 2020-05-26 20:18 | PC.NURSE ---
REPORT TO FLOOR. PT LEFT ED IN NAD.
[2020-05-26 21:06] LABS: Glucose, Whole Blood 113 mg/dL (60-115)
[2020-05-26] MEDS: carvediloL 25 MG TABLET PO (22:41)
[2020-05-26] MEDS: Fenofibrate 54 MG TABLET PO (22:41)
[2020-05-26] MEDS: Atorvastatin Calcium 80 MG TABLET PO (22:41)
[2020-05-26] MEDS: 0.9 % Sodium Chloride 1,000 ML 50 ML IVCONT (22:44)
[2020-05-26 23:27] VITALS: BP 169/79; PULSE 66; RESP 18; TEMP 37.6; O2SAT 97
[2020-05-27] VITALS (7 sets, daily range): BP systolic 119–162; BP diastolic 69–84; PULSE 61–72; RESP 18–20; TEMP 35.9–38; O2SAT 93–98; BMI 30.8
[2020-05-27] MEDS: 0.9 % Sodium Chloride Flush 3 ML SYRINGE IVFLUSH (02:53)
[2020-05-27 04:56] LABS: MANUAL DIFF FLAG NO
[2020-05-27 05:02] LABS: Hematocrit 30.8 % (42-52); Hemoglobin 10.8 g/dl (14.0-18.0); Imm Gran Abs Auto 0.01 X10*3/uL (0.00-0.03); Imm Gran Pct Auto 0.4 % (0.0-0.4); Lymphocytes Absolute Auto 0.8 X10*3/uL (1.2-4.9); Lymphocytes Percent Auto 31.3 % (20-40); Mean Corpuscular HGB Conc 35.1 g/dl (31.0-36.0); Mean Corpuscular Hemoglobin 30.8 pg (27.0-33.0); Mean Corpuscular Volume 87.7 fL (80-98); Mean Platelet Volume 10.8 fL (9.4-12.4); Monocytes Absolute Auto 0.2 X10*3/uL (0.1-1.2); Monocytes Percent Auto 5.9 % (2-11); Neutrophils Absolute Auto 1.6 X10*3/uL (2.0-8.3); Neutrophils Percent Auto 62.4 % (45-73); Platelet Count 125 X10*3/uL (160-400); Red Blood Count 3.51 X10*6/uL (4.60-5.80); Red Cell Distribution Width 12.9 % (11.0-16.0); White Blood Count 2.6 X10*3/uL (4.8-10.8)
[2020-05-27 05:51] LABS: Anion Gap 16 (12-20); Blood Urea Nitrogen 35 mg/dL (9-16); Calcium 7.4 mg/dL (8.4-10.2); Carbon Dioxide 19 mmol/L (22-29); Chloride 107 mmol/L (96-108); Creatinine Clr Calc Pharmacy 19.2; Estimated Glomerular Filt Rate 16; Glucose Random 103 mg/dL (60-115); Potassium 3.5 mmol/L (3.3-5.1); Sodium 138 mmol/L (135-145)
[2020-05-27 07:32] LABS: Glucose, Whole Blood 87 mg/dL (60-115)
[2020-05-27] MEDS: Acetaminophen 325 MG TABLET 650 MG PO ×2 (08:19→16:14)
[2020-05-27] MEDS: carvediloL 25 MG TABLET PO ×2 (08:20→21:13)
[2020-05-27] MEDS: amLODIPine Besylate 10 MG TABLET PO (08:20)
[2020-05-27] MEDS: Cholecalciferol (Vitamin D3) 25 MCG TABLET 50 MCG PO (08:20)
[2020-05-27] MEDS: Cyanocobalamin (Vitamin B-12) 1,000 MCG TABLET 1000 MCG PO (08:20)
[2020-05-27] MEDS: Famotidine/PF 20 MG/2 ML VIAL IVPUSH (08:21)
--- NOTE | 2020-05-27 09:10 | MHC.CM.PN ---
CM spoke with Patient, who is on the Covid Unit, with the assist of a telephonic Game Farm Supervisor, at [phone], and addressed IMM with Patient (Original being mailed to Patient's via certified mail and a copy has been placed on the chart). Patient lives with his and adult Daughter and he uses a cane to assist with mobility. Patient's goal is to return home and CM has initiated and will follow for dc planning. PCP is Dr. Brittney Leger.
--- NOTE | 2020-05-27 11:13 | CONS_ITS ---
DATE OF SERVICE: 05/27/2020 REFERRING PHYSICIAN: Clarice Irving NP REASON FOR CONSULTATION: Question of GI bleed. HISTORY OF PRESENT ILLNESS: The patient is a pleasant 74-year-old man, who was admitted to the hospital after presenting to the emergency room on May 26 with complaints of 1 week of epigastric pain with associated nausea. He states that over the past week, he has had epigastric pain with nausea, but no dysphagia, hematemesis, or melena. He has been taking some NSAIDs including ibuprofen for his symptoms. He denies any prior history of peptic ulcer disease and states his bowels have been brown and normal. He was evaluated in the emergency department and laboratory studies showed Hemoccult-negative stool with a hematocrit of 35, which was up from a hematocrit of 31 in April. He received IV fluids and Pepcid IV and was admitted to the hospital. Overnight, he states his pain improved. He has had no nausea or vomiting today and tolerated a diet. He has not had a bowel movement since admission. PAST MEDICAL HISTORY: 1. Coronary artery disease with history of bypass surgery. 2. Hypertension. 3. Chronic kidney disease. 4. Diabetes. 5. Cholecystectomy. 6. Right colon resection for colon polyps. 7. Last colonoscopy with removal of 4 polyps and diverticulosis noted on November 07, 2019. CURRENT MEDICATIONS: His current medication list is reviewed in the chart. ALLERGIES: MORPHINE. FAMILY HISTORY: This is reviewed with the patient and is negative for stomach cancer. SOCIAL HISTORY: There is no current tobacco, alcohol, or substance abuse. REVIEW OF SYSTEMS: SKIN: No pruritus. HEENT: Negative. CARDIOPULMONARY: No shortness of breath or chest pain. GASTROINTESTINAL: As above. GENITOURINARY: Negative. GENERAL: Anorexia and subjective fever. PHYSICAL EXAMINATION: GENERAL: Shows a pleasant male, in no acute distress. VITAL SIGNS: Reviewed in the electronic medical record and are stable. SKIN: Anicteric. HEENT: Shows no scleral icterus. NECK: Without lymphadenopathy or thyromegaly. LUNGS: Clear. HEART: Shows a regular rate and rhythm. S1, S2. No murmur. ABDOMEN: Soft without focal masses or tenderness. Bowel sounds are present. No organomegaly is noted. EXTREMITIES: Without edema. LABORATORY DATA: Shows a white blood cell count of 2.6, hematocrit 30.8 after IV fluids. Chemistries are remarkable for a sodium of 138 and potassium of 3.5. COVID-19 testing was positive on May 20 and is positive yesterday. IMPRESSION: Abdominal pain. At this point, there is no sign of GI bleeding. I discussed with the patient the need to avoid NSAIDs as he likely may have an NSAID induced gastritis or possible ulcer given that his hematocrit has been stable and he is tolerating a diet with improvement in his symptoms. I would recommend discharging him on b.i.d. proton pump inhibitor and follow up as an outpatient. If he has persistent symptoms, I would recommend endoscopy. This was discussed with the patient via hospital instrumentation specialist. Thanks for asking me to see him. I will follow him in the hospital with you. MD ELI Maria/LUDMILA / [id number]
[2020-05-27 11:26] LABS: Glucose, Whole Blood 96 mg/dL (60-115)
--- NOTE | 2020-05-27 11:47 | P.CDIC_ITS ---
CDI Concurrent Query Service Date: 05/27/20 Documentation Clarification: Please clarify if you are treating a proba ble/suspected/likely or confirmed: Specifics: MERLE on CKD Stage 1-5 or other Please specify if known Provider Response: CKD Stage 4 PLEASE DO NOT DELETE/MODIFY EXISTING CONTENT Additional information is needed in order to code to the highest accuracy and appropriate Severity of Illness (SOI). Please clarify the information noted below in your progress notes and discharge summary. Risk Factors/Clinical Indicators/Treatments History of Chronic kidney disease, creatinine mildly above baseline. CR: 3.71 MERLE IV fluids for gentle hydration Nephro consult CDS: Kaila Ramos CCS, CDIS Contact Number: [phone] Please Review the information above and exercise your independent professional judgment in responding to the query. If you concur, pleas document in the PROGRESS NOTES and DISCHARGE SUMMARY. If you do not agree with the query, please document in the query above. THIS QUERY IS PART OF THE PERMANENT MEDICAL RECORD
[2020-05-27] MEDS: Omeprazole 40 MG CAPSULE.DR PO (11:57)
--- NOTE | 2020-05-27 13:46 | P.PNIM_ITS ---
Subjective Subjective Date of Service: 05/27/20 Interval History: Patient seen and examined at bedside Patient was reporting some improvement in abdominal pain Review of Systems Constitutional: No Fever, No Chills, +Fatigue, +Malaise Cardiovascular: No Chest Pain, No SOB, No Edema, No Palpitations Respiratory: No Cough, No Wheezing, No Dyspnea Gastrointestinal: No Nausea, No Vomiting, + Diarrhea, No Constipation, + Abdominal pain, No Hematochezia, +black stool Genitourinary: No Dysuria, No Urinary Frequency, No Hematuria, No Flank Pain Musculoskeletal: No joint pain, No Myalgias, No Joint Swelling Skin: No Skin Lesions, No rash Neuro: No Loss of Consciousness, No Dizziness, No Headache Physical Exam Vital Signs: Vital Signs: Last Vital Signs Temp 96.7 F L 05/27/20 12:00 Pulse 61 05/27/20 12:00 Resp 20 05/27/20 12:00 BP 119/69 05/27/20 12:00 Pulse Ox 98 05/27/20 12:00 Body Mass Index 30.8 Const: General: cooperative, healthy appearing and no acute distress Orientation/consciousness: patient oriented x3 Limitations: no limitations HENMT: Head: Yes normal to inspection Ears: hearing grossly normal bilaterally General nose exam: Normal external nose present Face and sinus: Yes normal facial exam Eyes: General: appearance normal, both eyes and all related structures EOM: EOMs intact bilaterally Neck: Neck: Yes normal visual inspection and Yes no meningeal signs Resp: Effort & Inspection: normal respiratory effort Auscultation: clear to auscultation bilaterally, no rales, no rhonchi and no wheezes Cardio: Rate: regular rate Heart sounds: S1 normal heart sound present and S2 normal heart sound present GI: Inspection: Yes normal to inspection Palpation (GI): Soft to palpation, Tenderness to palpation present (GI) in the epigastrum, in the RLQ and in the RUQ; with no rebound tenderness, no guarding and not rigid : General: Yes no CVA tenderness Back/Spine/Pelvis: Back: no CVA tenderness Skin: Rashes: no rashes Wounds: no wounds Neuro: General: patient oriented x3 and no meningeal signs Gait exam (Neuro): Normal gait present Extrem: General: Yes normal to inspection Objective Data Current Medications Generic Name Dose Route Start Last Admin Trade Name Freq PRN Reason Stop Dose Admin Acetaminophen 650 mg 05/26/20 17:30 05/27/20 08:19 Acetaminophen 325 Mg Tablet PO 650 mg Q6H PRN Administration Pain, Mild (Pain Scale 1-3) Amlodipine Besylate 10 mg 05/27/20 09:00 05/27/20 08:20 Amlodipine Besylate 10 Mg Tablet PO 10 mg DAILY TIARA Administration Protocol Atorvastatin Calcium 80 mg 05/26/20 21:00 05/26/20 22:41 Atorvastatin Calcium 80 Mg Tablet PO 80 mg BEDTIME TIARA Administration Baclofen 10 mg 05/26/20 17:30 Baclofen 10 Mg Tablet PO TID PRN Muscle Spasm Carvedilol 25 mg 05/26/20 21:00 05/27/20 08:20 Carvedilol 25 Mg Tablet PO 25 mg BID TIARA Administration Protocol Cyanocobalamin 1,000 mcg 05/27/20 09:00 05/27/20 08:20 Cyanocobalamin (Vitamin B-12) 1,000 Mcg Tablet PO 1,000 mcg DAILY TIARA Administration Fenofibrate 54 mg 05/26/20 21:00 05/26/20 22:41 Fenofibrate 54 Mg Tablet PO 54 mg BEDTIME TIARA Administration Sodium Chloride 1,000 mls @ 50 mls/hr 05/26/20 20:20 05/26/20 22:44 Ns IVCONT 50 mls/hr .Q20H TIARA Administration Insulin Glargine 32 unit 05/26/20 21:00 05/26/20 22:42 Insulin Glargine,Hum.Rec.Anlog 100 Unit/Ml 10 Ml Vial SUBCUT Not Given BEDTIME [facility] Insulin Human Lispro 0 unit 05/26/20 21:00 05/27/20 12:02 Insulin Lispro 100 Unit/Ml 3 Ml Vial SUBCUT Not Given QIDACHS [facility] Protocol Omeprazole 40 mg 05/27/20 10:45 05/27/20 11:57 Omeprazole 40 Mg Capsule.Dr PO 40 mg DAILY@0630 TIARA Administration Ondansetron HCl 4 mg 05/26/20 17:30 Ondansetron Hcl 4 Mg/2 Ml Vial IVPUSH Q8H PRN Nausea and Vomiting Pharmacy Consult 1 each 05/26/20 15:02 Consult Rx Perform Med Rec MISCELLANE ONCE PRN Consult order Sodium Chloride 3 ml 05/27/20 00:00 05/27/20 08:22 0.9 % Sodium Chloride Flush 3 Ml Syringe IVFLUSH Not Given QSHIFT [facility] Vitamin D 50 mcg 05/27/20 09:00 05/27/20 08:20 Cholecalciferol (Vitamin D3) 25 Mcg Tablet PO 50 mcg DAILY TIARA Administration Labs CBC & Chem 7: 05/27/20 04:23 05/27/20 04:23 Assessment and Plan (1) COVID-19: Status: Acute (2) MERLE (acute kidney injury): Status: Acute (3) Diarrhea: Status: Acute Assessment and Plan: 74-year-old male admitted with abdominal pain and dark color stools Abdominal pain with Dark stool rule out GI bleed Still reporting some abdominal pain Continue PPI Seen by GI recommended medical management Monitor H&H Stool for occult negative Acute on chronic kidney injury Creatinine around 3.8 today Monitor kidney function Avoid nephrotoxins Continue gentle IV fluid Nephrology consult Diabetes mellitus Continue SSI Monitor blood glucose Hypertension Continue amlodipine and losartan CAD Hold aspirin Continue statin DVT prophylaxis Venodyne
[2020-05-27 13:55] LABS: Lactate Dehydrogenase 469 U/L (118-273)
--- NOTE | 2020-05-27 15:03 | CONS_ITS ---
DATE OF SERVICE: 05/27/2020 REASON FOR CONSULTATION: I was called to see this patient to assist in the management of acute kidney injury. HISTORY OF PRESENT ILLNESS: To summarize, Hardeep is a 74-year-old man with a history of diabetes mellitus, hypertension, chronic kidney disease stage 3 with baseline creatinine of less than 2 mg/dL. He comes in because of abdominal pain and he has had black stools. He is currently being evaluated for the diarrhea. At the time of admission, he was found to have acute kidney injury with a serum creatinine of 4.05, which is actually slightly improved to 3.71. This consultation had been requested for management of the acute kidney injury. PAST MEDICAL HISTORY: Ongoing medical problems include history of hypertension, diabetes mellitus, stage 3 chronic kidney disease, history of cholecystectomy, coronary artery disease, status post CABG. FAMILY HISTORY: Significant for heart disease. SOCIAL HISTORY: Lives with his family. No history of any smoking or alcohol abuse. ALLERGIES: HE IS ALLERGIC TO MORPHINE. MEDICATIONS: At the time of admission included Tylenol, amlodipine 10 mg, aspirin, baclofen, carvedilol, vitamin D, Lasix 40 b.i.d., insulin, losartan 25 mg, omeprazole, Crestor 20 mg. REVIEW OF SYSTEMS: Positive for abdominal pain with some diarrhea. No nausea or vomiting. No urinary symptoms. No hematuria. No edema. No fever. No rash. All other systems were reviewed. PHYSICAL EXAMINATION: GENERAL: Today, Hardeep is a 74-year-old man, who appears comfortable, not in any distress. NECK: Supple. No JVD. VITAL SIGNS: Blood pressure was 161/72, pulse 72 per minute. NECK: Supple. No JVD. HEENT: Mucosa moist. LUNGS: Air entry equal. No rales. HEART: S1, S2 heard. No gallop. No rub. ABDOMEN: Soft, nontender. Bowel sounds heard. NEUROLOGIC: Alert and awake. No asterixis. EXTREMITIES: No edema. No rash. No clubbing. LABORATORY DATA: As of today, BUN 35, creatinine 3.81, potassium 3.5, CO2 of 19. WBC 2.6, hemoglobin 10.8, platelets 125. Urinalysis on admission showed 3+ protein, 2+ blood by dipstick. CT of the abdomen and pelvis showed normal appearing kidneys without hydronephrosis. There was a bladder diverticulum. There is evidence of right hemicolectomy. IMPRESSION: A 74-year-old man with history of hypertension, diabetes mellitus, chronic kidney disease stage 3, comes in with superimposed acute kidney injury due to hypoperfusion in the setting of diarrhea. However, he has developed anemia with thrombocytopenia and the urine did show some RBCs. This needs further workup. RECOMMENDATIONS: My recommendation is to obtain a spot urine for sodium, creatinine, and protein. Check LDH, haptoglobin, serum complements. Hold diuretics and losartan for now and hydrate him with normal saline. We will watch renal function closely. No indication for dialysis. We will be happy to follow him with the team. Colten Lee MD BPA/MODL / [id number]
[2020-05-27] MEDS: 0.9 % Sodium Chloride 1,000 ML 50 ML IVCONT (15:26)
[2020-05-27] MEDS: ondansetron HCL 4 MG/2 ML VIAL IVPUSH (16:14)
[2020-05-27 16:17] LABS: Glucose, Whole Blood 126 mg/dL (60-115)
[2020-05-27 19:33] LABS: Glucose, Whole Blood 133 mg/dL (60-115)
[2020-05-27] MEDS: Atorvastatin Calcium 80 MG TABLET PO (21:13)
[2020-05-27] MEDS: Fenofibrate 54 MG TABLET PO (21:14)
[2020-05-28] VITALS (13 sets, daily range): BP systolic 97–159; BP diastolic 46–74; PULSE 65–90; RESP 16–70; TEMP 36.5–39.1; O2SAT 92–96
[2020-05-28] MEDS: Omeprazole 40 MG CAPSULE.DR PO (06:01)
[2020-05-28 07:33] LABS: Glucose, Whole Blood 73 mg/dL (60-115)
[2020-05-28] MEDS: Cholecalciferol (Vitamin D3) 25 MCG TABLET 50 MCG PO (08:01)
[2020-05-28] MEDS: 0.9 % Sodium Chloride Flush 3 ML SYRINGE IVFLUSH ×2 (08:01→23:32)
[2020-05-28] MEDS: Cyanocobalamin (Vitamin B-12) 1,000 MCG TABLET 1000 MCG PO (08:02)
[2020-05-28] MEDS: carvediloL 25 MG TABLET PO ×2 (08:02→21:27)
[2020-05-28] MEDS: Acetaminophen 325 MG TABLET 650 MG PO ×2 (08:10→21:27)
[2020-05-28] MEDS: amLODIPine Besylate 10 MG TABLET PO (08:10)
--- NOTE | 2020-05-28 11:00 | MHC.CM.PN ---
DP Male 74 DX Covid+ GIB. DC to home with CCA. Dtr will provide transportation. No DC today. Temps continue Blood cultures are pending. CM will follow.
[2020-05-28 11:24] LABS: Glucose, Whole Blood 97 mg/dL (60-115)
--- NOTE | 2020-05-28 11:31 | PM.PNNEP ---
Subjective Subjective Date of Service: 05/30/20 Interval history: Patient seen and examined at bedside Patient was reporting some improvement in abdominal pain Physical Exam Vital Signs: Vital Signs: Last Vital Signs Temp 102.3 F H 05/28/20 07:39 Pulse 75 05/28/20 08:10 Resp 30 H 05/28/20 07:39 BP 159/74 H 05/28/20 08:10 Pulse Ox 94 05/28/20 07:39 Body Mass Index 30.8 Const: General: cooperative Neck: Neck: Yes no JVD Cardio: Jugular venous distension: no JVD GI: Palpation (GI): Soft to palpation Skin: General skin exam: dry skin Neuro: Motor exam (neuro): No Asterixis during motor activity present Objective Data Labs CBC & Chem 7: 05/30/20 08:40 05/30/20 08:40 Labs: Laboratory Results - last 24 hr 05/27/20 05/27/20 05/27/20 13:15 16:05 19:27 POC Glucose 126 H 133 H Lactate Dehydrogenase 469 H 05/28/20 05/28/20 07:27 11:17 POC Glucose 73 97 Lactate Dehydrogenase Assessment & Plan Assessment and plan (1) MERLE (acute kidney injury): Status: Acute Assessment and Plan: Probably ischemic atn No recovery yet non oligulric Keep I >O work up in progress Time Spent With Patient Time: Total time spent is greater than 50% in coordination of care (as documented) at patient's floor/unit and/or counseling patient: Procedures Date of Service Date of Service: 05/28/20
[2020-05-28] MEDS: 0.9 % Sodium Chloride 1,000 ML 50 ML IVCONT (12:08)
[2020-05-28 12:17] LABS: Complement C3 138 mg/dL (82-185)
--- NOTE | 2020-05-28 13:55 | HO.PM.IMPN ---
Subjective Subjective Date of Service: 05/28/20 Interval History: Patient seen and examined at bedside Patient was reporting some abdominal pain Patient spiked fever today Review of Systems Constitutional: No Fever, No Chills, +Fatigue, +Malaise Cardiovascular: No Chest Pain, No SOB, No Edema, No Palpitations Respiratory: No Cough, No Wheezing, No Dyspnea Gastrointestinal: No Nausea, No Vomiting, + Diarrhea, No Constipation, + Abdominal pain, No Hematochezia, +black stool Genitourinary: No Dysuria, No Urinary Frequency, No Hematuria, No Flank Pain Musculoskeletal: No joint pain, No Myalgias, No Joint Swelling Skin: No Skin Lesions, No rash Neuro: No Loss of Consciousness, No Dizziness, No Headache Physical Exam Vital Signs: Vital Signs: Last Vital Signs Temp 98.8 F 05/28/20 11:32 Pulse 67 05/28/20 11:32 Resp 20 05/28/20 11:32 BP 115/56 L 05/28/20 11:32 Pulse Ox 95 05/28/20 11:32 Body Mass Index 30.8 Const: General: cooperative, healthy appearing and no acute distress Orientation/consciousness: patient oriented x3 Limitations: no limitations HENMT: Head: Yes normal to inspection Ears: hearing grossly normal bilaterally General nose exam: Normal external nose present Face and sinus: Yes normal facial exam Eyes: General: appearance normal, both eyes and all related structures EOM: EOMs intact bilaterally Neck: Neck: Yes normal visual inspection and Yes no meningeal signs Resp: Effort & Inspection: normal respiratory effort Auscultation: clear to auscultation bilaterally, no rales, no rhonchi and no wheezes Cardio: Rate: regular rate Heart sounds: S1 normal heart sound present and S2 normal heart sound present GI: Inspection: Yes normal to inspection Palpation (GI): Soft to palpation, Tenderness to palpation present (GI) in the epigastrum, in the RLQ and in the RUQ; with no rebound tenderness, no guarding and not rigid : General: Yes no CVA tenderness Back/Spine/Pelvis: Back: no CVA tenderness Skin: Rashes: no rashes Wounds: no wounds Neuro: General: patient oriented x3 and no meningeal signs Gait exam (Neuro): Normal gait present Extrem: General: Yes normal to inspection Objective Data Current Medications Generic Name Dose Route Start Last Admin Trade Name Freq PRN Reason Stop Dose Admin Acetaminophen 650 mg 05/26/20 17:30 05/28/20 08:10 Acetaminophen 325 Mg Tablet PO 650 mg Q6H PRN Administration Pain, Mild (Pain Scale 1-3) Amlodipine Besylate 10 mg 05/27/20 09:00 05/28/20 08:10 Amlodipine Besylate 10 Mg Tablet PO 10 mg DAILY TIARA Administration Protocol Atorvastatin Calcium 80 mg 05/26/20 21:00 05/27/20 21:13 Atorvastatin Calcium 80 Mg Tablet PO 80 mg BEDTIME TIARA Administration Baclofen 10 mg 05/26/20 17:30 Baclofen 10 Mg Tablet PO TID PRN Muscle Spasm Carvedilol 25 mg 05/26/20 21:00 05/28/20 08:02 Carvedilol 25 Mg Tablet PO 25 mg BID [facility] Administration Protocol Cyanocobalamin 1,000 mcg 05/27/20 09:00 05/28/20 08:02 Cyanocobalamin (Vitamin B-12) 1,000 Mcg Tablet PO 1,000 mcg DAILY TIARA Administration Dexamethasone Sodium Phosphate 6 mg 05/29/20 09:00 Dexamethasone Sod Phosphate 4 Mg/Ml Vial IVPUSH DAILY [facility] Fenofibrate 54 mg 05/26/20 21:00 05/27/20 21:14 Fenofibrate 54 Mg Tablet PO 54 mg BEDTIME [facility] Administration Sodium Chloride 1,000 mls @ 50 mls/hr 05/26/20 20:20 05/28/20 12:08 Ns IVCONT 50 mls/hr .Q20H TIARA Administration Insulin Glargine 32 unit 05/26/20 21:00 05/27/20 21:14 Insulin Glargine,Hum.Rec.Anlog 100 Unit/Ml 10 Ml Vial SUBCUT Not Given BEDTIME [facility] Insulin Human Lispro 0 unit 05/26/20 21:00 05/28/20 12:08 Insulin Lispro 100 Unit/Ml 3 Ml Vial SUBCUT Not Given QIDACHS [facility] Protocol Omeprazole 40 mg 05/27/20 10:45 05/28/20 06:01 Omeprazole 40 Mg Capsule.Dr PO 40 mg DAILY@0630 TIARA Administration Ondansetron HCl 4 mg 05/26/20 17:30 05/27/20 16:14 Ondansetron Hcl 4 Mg/2 Ml Vial IVPUSH 4 mg Q8H PRN Administration Nausea and Vomiting Pharmacy Consult 1 each 05/26/20 15:02 Consult Rx Perform Med Rec MISCELLANE ONCE PRN Consult order Sodium Chloride 3 ml 05/27/20 00:00 05/28/20 08:01 0.9 % Sodium Chloride Flush 3 Ml Syringe IVFLUSH 3 ml QSHIFT TIARA Administration Vitamin D 50 mcg 05/27/20 09:00 05/28/20 08:01 Cholecalciferol (Vitamin D3) 25 Mcg Tablet PO 50 mcg DAILY TIARA Administration Labs CBC & Chem 7: 05/27/20 04:23 05/27/20 04:23 Assessment and Plan (1) COVID-19: Status: Acute (2) MERLE (acute kidney injury): Status: Acute (3) Diarrhea: Status: Acute Assessment and Plan: 74-year-old male admitted with abdominal pain and dark color stools Abdominal pain with Dark stool rule out GI bleed Continue PPI Seen by GI recommended medical management as H&H stable and stool for occult negative Monitor H&H Stool for occult negative Acute on chronic kidney injury Creatinine around 3.7 Monitor kidney function Avoid nephrotoxins Continue gentle IV fluid Nephrology consult Diabetes mellitus Continue SSI Monitor blood glucose Hypertension Continue amlodipine CAD Hold aspirin Continue statin DVT prophylaxis Venodyne
[2020-05-28 16:26] LABS: Glucose, Whole Blood 100 mg/dL (60-115)
[2020-05-28] MEDS: Calcium Carbonate 750 MG TAB.CHEW PO (20:00)
[2020-05-28 20:47] LABS: Glucose, Whole Blood 109 mg/dL (60-115)
[2020-05-28] MEDS: Melatonin 3 MG TABLET 6 MG PO (21:27)
[2020-05-28] MEDS: Fenofibrate 54 MG TABLET PO (21:28)
[2020-05-28] MEDS: Atorvastatin Calcium 80 MG TABLET PO (21:28)
[2020-05-29] VITALS (10 sets, daily range): BP systolic 123–156; BP diastolic 57–63; PULSE 66–73; RESP 18–20; TEMP 36.4–36.9; O2SAT 91–93
[2020-05-29] MEDS: diphenhydrAMINE HCL 25 MG TABLET PO (01:52)
[2020-05-29] MEDS: Acetaminophen 325 MG TABLET 650 MG PO (04:12)
[2020-05-29] MEDS: ondansetron HCL 4 MG/2 ML VIAL IVPUSH (04:22)
[2020-05-29] MEDS: Omeprazole 40 MG CAPSULE.DR PO (06:13)
[2020-05-29 07:44] LABS: Glucose, Whole Blood 78 mg/dL (60-115)
[2020-05-29] MEDS: Cyanocobalamin (Vitamin B-12) 1,000 MCG TABLET 1000 MCG PO (08:43)
[2020-05-29] MEDS: 0.9 % Sodium Chloride Flush 3 ML SYRINGE IVFLUSH ×2 (08:43→23:50)
[2020-05-29] MEDS: amLODIPine Besylate 10 MG TABLET PO (08:43)
[2020-05-29] MEDS: dexAMETHasone sod phosphate 4 MG/ML VIAL 6 MG IVPUSH (08:43)
[2020-05-29] MEDS: carvediloL 25 MG TABLET PO ×2 (08:44→21:42)
[2020-05-29] MEDS: Cholecalciferol (Vitamin D3) 25 MCG TABLET 50 MCG PO (08:44)
[2020-05-29 08:52] LABS: MANUAL DIFF FLAG NO
[2020-05-29 08:58] LABS: Hematocrit 28.7 % (42-52); Hemoglobin 9.9 g/dl (14.0-18.0); Imm Gran Abs Auto 0.04 X10*3/uL (0.00-0.03); Imm Gran Pct Auto 0.7 % (0.0-0.4); Lymphocytes Absolute Auto 0.8 X10*3/uL (1.2-4.9); Lymphocytes Percent Auto 12.9 % (20-40); Mean Corpuscular HGB Conc 34.5 g/dl (31.0-36.0); Mean Corpuscular Hemoglobin 30.6 pg (27.0-33.0); Mean Corpuscular Volume 88.6 fL (80-98); Mean Platelet Volume 10.5 fL (9.4-12.4); Monocytes Absolute Auto 0.2 X10*3/uL (0.1-1.2); Monocytes Percent Auto 2.8 % (2-11); Neutrophils Percent Auto 83.6 % (45-73); Platelet Count 183 X10*3/uL (160-400); Red Blood Count 3.24 X10*6/uL (4.60-5.80); Red Cell Distribution Width 13.1 % (11.0-16.0)
[2020-05-29 09:42] LABS: Anion Gap 15 (12-20); Blood Urea Nitrogen 49 mg/dL (9-16); Calcium 7.2 mg/dL (8.4-10.2); Carbon Dioxide 20 mmol/L (22-29); Chloride 107 mmol/L (96-108); Glucose Random 74 mg/dL (60-115); Potassium 3.6 mmol/L (3.3-5.1); Sodium 138 mmol/L (135-145)
[2020-05-29 09:44] LABS: Creatinine Clr Calc Pharmacy 14.2; Estimated Glomerular Filt Rate 11
[2020-05-29] MEDS: 0.9 % Sodium Chloride 1,000 ML 50 ML IVCONT (10:09)
[2020-05-29 11:02] LABS: Glucose, Whole Blood 120 mg/dL (60-115)
--- NOTE | 2020-05-29 13:07 | HO.PM.IMPN ---
Subjective Subjective Date of Service: 05/29/20 Interval History: Patient seen and examined at bedside Patient was reporting feeling weak Review of Systems Constitutional: weakness , No Chills, +Fatigue, +Malaise Cardiovascular: No Chest Pain, No SOB, No Edema, No Palpitations Respiratory: No Cough, No Wheezing, No Dyspnea Gastrointestinal: No Nausea, No Vomiting, + Diarrhea, No Constipation, + Abdominal pain, No Hematochezia, +black stool Genitourinary: No Dysuria, No Urinary Frequency, No Hematuria, No Flank Pain Musculoskeletal: No joint pain, No Myalgias, No Joint Swelling Skin: No Skin Lesions, No rash Neuro: No Loss of Consciousness, No Dizziness, No Headache Physical Exam Vital Signs: Vital Signs: Last Vital Signs Temp 98.2 F 05/29/20 11:01 Pulse 66 05/29/20 11:01 Resp 20 05/29/20 11:01 BP 133/63 05/29/20 11:01 Pulse Ox 91 L 05/29/20 11:01 Body Mass Index 30.8 Const: General: cooperative, healthy appearing and no acute distress Orientation/consciousness: patient oriented x3 Limitations: no limitations HENMT: Head: Yes normal to inspection Ears: hearing grossly normal bilaterally General nose exam: Normal external nose present Face and sinus: Yes normal facial exam Eyes: General: appearance normal, both eyes and all related structures EOM: EOMs intact bilaterally Neck: Neck: Yes normal visual inspection and Yes no meningeal signs Resp: Effort & Inspection: normal respiratory effort Auscultation: clear to auscultation bilaterally, no rales, no rhonchi and no wheezes Cardio: Rate: regular rate Heart sounds: S1 normal heart sound present and S2 normal heart sound present GI: Inspection: Yes normal to inspection Palpation (GI): Soft to palpation, Tenderness to palpation present (GI) in the epigastrum, in the RLQ and in the RUQ; with no rebound tenderness, no guarding and not rigid : General: Yes no CVA tenderness Back/Spine/Pelvis: Back: no CVA tenderness Skin: Rashes: no rashes Wounds: no wounds Neuro: General: patient oriented x3 and no meningeal signs Gait exam (Neuro): Normal gait present Extrem: General: Yes normal to inspection Objective Data Current Medications Generic Name Dose Route Start Last Admin Trade Name Freq PRN Reason Stop Dose Admin Acetaminophen 650 mg 05/26/20 17:30 05/29/20 04:12 Acetaminophen 325 Mg Tablet PO 650 mg Q6H PRN Administration Pain, Mild (Pain Scale 1-3) Amlodipine Besylate 10 mg 05/27/20 09:00 05/29/20 08:43 Amlodipine Besylate 10 Mg Tablet PO 10 mg DAILY TIARA Administration Protocol Atorvastatin Calcium 80 mg 05/26/20 21:00 05/28/20 21:28 Atorvastatin Calcium 80 Mg Tablet PO 80 mg BEDTIME [facility] Administration Baclofen 10 mg 05/26/20 17:30 Baclofen 10 Mg Tablet PO TID PRN Muscle Spasm Calcium Carbonate 750 mg 05/28/20 19:40 05/28/20 20:00 Calcium Carbonate 750 Mg Tab.Chew PO 750 mg Q6H PRN Administration Heartburn Carvedilol 25 mg 05/26/20 21:00 05/29/20 08:44 Carvedilol 25 Mg Tablet PO 25 mg BID TIARA Administration Protocol Cyanocobalamin 1,000 mcg 05/27/20 09:00 05/29/20 08:43 Cyanocobalamin (Vitamin B-12) 1,000 Mcg Tablet PO 1,000 mcg DAILY TIARA Administration Dexamethasone Sodium Phosphate 6 mg 05/29/20 09:00 05/29/20 08:43 Dexamethasone Sod Phosphate 4 Mg/Ml Vial IVPUSH 6 mg DAILY [facility] Administration Fenofibrate 54 mg 05/26/20 21:00 05/28/20 21:28 Fenofibrate 54 Mg Tablet PO 54 mg BEDTIME [facility] Administration Sodium Chloride 1,000 mls @ 100 mls/hr 05/26/20 20:20 05/29/20 11:44 Ns IVCONT 100 mls/hr .Q10H [facility] Infusion Insulin Glargine 32 unit 05/26/20 21:00 05/28/20 21:40 Insulin Glargine,Hum.Rec.Anlog 100 Unit/Ml 10 Ml Vial SUBCUT Not Given BEDTIME [facility]ARA Insulin Human Lispro 0 unit 05/26/20 21:00 05/29/20 11:07 Insulin Lispro 100 Unit/Ml 3 Ml Vial SUBCUT Not Given QIDACHS [facility] Protocol Melatonin 6 mg 05/28/20 20:29 05/28/20 21:27 Melatonin 3 Mg Tablet PO 6 mg BEDTIME PRN Administration Insomnia Omeprazole 40 mg 05/27/20 10:45 05/29/20 06:13 Omeprazole 40 Mg Capsule. PO 40 mg DAILY@0630 TIARA Administration Ondansetron HCl 4 mg 05/26/20 17:30 05/29/20 04:22 Ondansetron Hcl 4 Mg/2 Ml Vial IVPUSH 4 mg Q8H PRN Administration Nausea and Vomiting Pharmacy Consult 1 each 05/26/20 15:02 Consult Rx Perform Med Rec MISCELLANE ONCE PRN Consult order Sodium Chloride 3 ml 05/27/20 00:00 05/29/20 08:43 0.9 % Sodium Chloride Flush 3 Ml Syringe IVFLUSH 3 ml QSHIFT TIARA Administration Vitamin D 50 mcg 05/27/20 09:00 05/29/20 08:44 Cholecalciferol (Vitamin D3) 25 Mcg Tablet PO 50 mcg DAILY TIARA Administration Labs CBC & Chem 7: 05/29/20 08:30 05/29/20 08:30 Microbiology Microbiology Results: Microbiology 05/28/20 08:39 Blood - Venous Blood Culture - Preliminary No growth after 24 hours. 05/28/20 08:39 Blood - Venous Blood Culture - Preliminary No growth after 24 hours. Assessment and Plan (1) COVID-19: Status: Acute (2) MERLE (acute kidney injury): Status: Acute (3) Diarrhea: Status: Acute Assessment and Plan: 74-year-old male admitted with abdominal pain and dark color stools Acute on chronic kidney injury Creatinine worsening 5.16 today Monitor kidney function Avoid nephrotoxins Will increase IV fluid Nephrology follow up requested Abdominal pain with Dark stool Stool for occult blood was negative Seen by GI recommended medical management as H&H stable and stool for occult negative and no signs of GI bleed likely gastritis Continue PPI H&H stable Monitor H&H Stool for occult negative Diabetes mellitus Continue SSI Monitor blood glucose Hypertension Continue amlodipine CAD Hold aspirin Continue statin DVT prophylaxis intial on venodyne as h/h stable and no evidence of gi bleed will start heparin s/c
--- NOTE | 2020-05-29 13:40 | PM.PNNEP ---
Subjective Subjective Date of Service: 05/29/20 Interval history: Patient seen and examined at bedside Patient was reporting feeling weak Physical Exam Vital Signs: Vital Signs: Last Vital Signs Temp 98.2 F 05/29/20 11:01 Pulse 66 05/29/20 11:01 Resp 20 05/29/20 11:01 BP 133/63 05/29/20 11:01 Pulse Ox 91 L 05/29/20 11:01 Body Mass Index 30.8 Const: General: cooperative, healthy appearing and no acute distress Orientation/consciousness: patient oriented x3 Limitations: no limitations HENMT: Head: Yes normal to inspection Ears: hearing grossly normal bilaterally General nose exam: Normal external nose present Face and sinus: Yes normal facial exam Eyes: General: appearance normal, both eyes and all related structures EOM: EOMs intact bilaterally Neck: Neck: Yes normal visual inspection, Yes no meningeal signs and Yes no JVD Resp: Effort & Inspection: normal respiratory effort Auscultation: clear to auscultation bilaterally, no rales, no rhonchi and no wheezes Cardio: Jugular venous distension: no JVD Rate: regular rate Heart sounds: S1 normal heart sound present and S2 normal heart sound present GI: Inspection: Yes normal to inspection Palpation (GI): Soft to palpation, Tenderness to palpation present (GI) in the epigastrum, in the RLQ and in the RUQ; with no rebound tenderness, no guarding and not rigid : General: Yes no CVA tenderness Back/Spine/Pelvis: Back: no CVA tenderness Skin: General skin exam: dry skin Rashes: no rashes Wounds: no wounds Neuro: General: patient oriented x3 and no meningeal signs Gait exam (Neuro): Normal gait present Motor exam (neuro): No Asterixis during motor activity present Extrem: General: Yes normal to inspection Objective Data Labs CBC & Chem 7: 05/29/20 08:30 05/29/20 08:30 Labs: Laboratory Results - last 24 hr 05/28/20 05/28/20 05/29/20 16:22 20:28 07:34 WBC RBC Hgb Hct MCV MCH MCHC RDW Plt Count MPV Immature Gran % (Auto) Neut % (Auto) Lymph % (Auto) Traill % (Auto) Eos % (Auto) Baso % (Auto) Lymph # (Auto) [place]ill # (Auto) Eos # (Auto) Baso # (Auto) Abs Immat Gran (auto) Absolute Neuts (auto) Absolute Nucleated RBC Nucleated RBC % (auto) Sodium Potassium Chloride Carbon Dioxide Anion Gap BUN Creatinine Estim Creat Clear Calc Estimated GFR POC Glucose 100 109 78 Random Glucose Calcium 05/29/20 05/29/20 05/29/20 08:30 08:30 10:56 WBC 6.0 RBC 3.24 L Hgb 9.9 L Hct 28.7 L MCV 88.6 MCH 30.6 MCHC 34.5 RDW 13.1 Plt Count 183 D MPV 10.5 Immature Gran % (Auto) 0.7 H Neut % (Auto) 83.6 H Lymph % (Auto) 12.9 L Traill % (Auto) 2.8 Eos % (Auto) 0.0 Baso % (Auto) 0.0 Lymph # (Auto) 0.8 L Traill # (Auto) 0.2 Eos # (Auto) 0.0 Baso # (Auto) 0.0 Abs Immat Gran (auto) 0.04 H Absolute Neuts (auto) 5.0 Absolute Nucleated RBC 0.000 Nucleated RBC % (auto) 0.0 Sodium 138 Potassium 3.6 Chloride 107 Carbon Dioxide 20 L Anion Gap 15 BUN 49 H Creatinine 5.16 H* Estim Creat Clear Calc 14.2 Estimated GFR 11 POC Glucose 120 H Random Glucose 74 Calcium 7.2 L Microbiology Microbiology Results: Microbiology 05/28/20 08:39 Blood - Venous Blood Culture - Preliminary No growth after 24 hours. 05/28/20 08:39 Blood - Venous Blood Culture - Preliminary No growth after 24 hours. Assessment & Plan Assessment and plan (1) COVID-19: Status: Acute (2) MERLE (acute kidney injury): Status: Acute (3) Diarrhea: Status: Acute Assessment and Plan: 74-year-old male admitted with abdominal pain and dark color stools Acute on chronic kidney injury Creatinine worsening 5.16 today Monitor kidney function Avoid nephrotoxins increase IV fluid monitor urine output Abdominal pain with Dark stool Stool for occult blood was negative Seen by GI recommended medical management as H&H stable and stool for occult negative and no signs of GI bleed likely gastritis Continue PPI H&H stable Monitor H&H Stool for occult negative Diabetes mellitus Continue SSI Monitor blood glucose Hypertension Continue amlodipine CAD Hold aspirin Continue statin DVT prophylaxis intial on venodyne as h/h stable and no evidence of gi bleed will start heparin s/c Time Spent With Patient Time: Total time spent is greater than 50% in coordination of care (as documented) at patient's floor/unit and/or counseling patient: Procedures Date of Service Date of Service: 05/29/20
[2020-05-29 13:47] LABS: Haptoglobin 498 mg/dL (43-212)
[2020-05-29] MEDS: Lactated Ringers 1,000 ML 125 ML IVCONT ×2 (14:02→21:48)
[2020-05-29] MEDS: Heparin Sodium,Porcine 5,000 UNIT/ML VIAL 5000 UNIT SUBCUT (14:15)
[2020-05-29 16:57] LABS: Glucose, Whole Blood 141 mg/dL (60-115)
--- NOTE | 2020-05-29 17:45 | PC.NURSE ---
Patient did not have good intake today, consumed less than 50% of all meals. Patient had incontinent episode this afternoon, unable to make it to commode, stool loose/liquid. Up in recliner for the majority of the day. Fluids switched and increased, running continuously, due to critical Cr of 5.16.
[2020-05-29 20:54] LABS: Glucose, Whole Blood 153 mg/dL (60-115)
[2020-05-29] MEDS: Atorvastatin Calcium 80 MG TABLET PO (21:42)
[2020-05-29] MEDS: Fenofibrate 54 MG TABLET PO (21:42)
[2020-05-30] VITALS (8 sets, daily range): BP systolic 122–145; BP diastolic 60–67; PULSE 67–70; RESP 18–20; TEMP 36.3–36.9; O2SAT 92–95; BMI 31.6
[2020-05-30] MEDS: Heparin Sodium,Porcine 5,000 UNIT/ML VIAL 5000 UNIT SUBCUT ×2 (05:41→18:26)
[2020-05-30] MEDS: Omeprazole 40 MG CAPSULE.DR PO (05:42)
[2020-05-30] MEDS: Lactated Ringers 1,000 ML 125 ML IVCONT ×2 (05:43→16:29)
[2020-05-30] MEDS: ondansetron HCL 4 MG/2 ML VIAL IVPUSH (06:28)
[2020-05-30 07:32] LABS: Glucose, Whole Blood 167 mg/dL (60-115)
[2020-05-30] MEDS: carvediloL 25 MG TABLET PO ×2 (08:08→21:58)
[2020-05-30] MEDS: Cholecalciferol (Vitamin D3) 25 MCG TABLET 50 MCG PO (08:08)
[2020-05-30] MEDS: Cyanocobalamin (Vitamin B-12) 1,000 MCG TABLET 1000 MCG PO (08:08)
[2020-05-30] MEDS: amLODIPine Besylate 10 MG TABLET PO (08:08)
[2020-05-30] MEDS: Insulin Lispro 100 UNIT/ML 3 ML VIAL SUBCUT ×3 (08:09→16:28)
[2020-05-30] MEDS: 0.9 % Sodium Chloride Flush 3 ML SYRINGE IVFLUSH ×2 (08:09→21:58)
[2020-05-30] MEDS: dexAMETHasone sod phosphate 4 MG/ML VIAL 6 MG IVPUSH (08:09)
[2020-05-30 08:50] LABS: Hemoglobin 10.4 g/dl (14.0-18.0); Mean Corpuscular HGB Conc 34.7 g/dl (31.0-36.0); Mean Corpuscular Hemoglobin 30.5 pg (27.0-33.0); Mean Platelet Volume 10.3 fL (9.4-12.4); Platelet Count 249 X10*3/uL (160-400); Red Blood Count 3.41 X10*6/uL (4.60-5.80); Red Cell Distribution Width 13.2 % (11.0-16.0); White Blood Count 7.5 X10*3/uL (4.8-10.8)
[2020-05-30 09:18] LABS: Anion Gap 16 (12-20); Blood Urea Nitrogen 64 mg/dL (9-16); Calcium 7.3 mg/dL (8.4-10.2); Carbon Dioxide 19 mmol/L (22-29); Chloride 108 mmol/L (96-108); Glucose Random 205 mg/dL (60-115); Potassium 3.7 mmol/L (3.3-5.1); Sodium 139 mmol/L (135-145)
[2020-05-30 09:26] LABS: Creatinine Clr Calc Pharmacy 12.8; Estimated Glomerular Filt Rate 10
[2020-05-30 11:15] LABS: Glucose, Whole Blood 222 mg/dL (60-115)
--- NOTE | 2020-05-30 11:42 | P.PNIM_ITS ---
Subjective Subjective Date of Service: 05/30/20 Interval History: seen and examined this AM reports he is feeling better compared to yestrerady but still very sob with minimal exertion denies any urinary complaints ROS General - no fevers or chills Cardiovascular - no chest pain Respiratory - +SOB Abdominal- no abdominal pain, nausea, vomiting, diarrhea Physical Exam Vital Signs: Vital Signs: Last Vital Signs Temp 97.8 F 05/30/20 11:03 Pulse 70 05/30/20 11:03 Resp 18 05/30/20 11:03 BP 134/64 05/30/20 11:03 Pulse Ox 93 05/30/20 11:03 Body Mass Index 31.6 Const: General: cooperative, healthy appearing and no acute distress Orientation/consciousness: patient oriented x3 Limitations: no limitations HENMT: Head: Yes normal to inspection Ears: hearing grossly normal bilaterally General nose exam: Normal external nose present Face and sinus: Yes normal facial exam Eyes: General: appearance normal, both eyes and all related structures EOM: EOMs intact bilaterally Neck: Neck: Yes normal visual inspection and Yes no meningeal signs Resp: Effort & Inspection: normal respiratory effort Auscultation: clear to auscultation bilaterally, no rales, no rhonchi and no wheezes Cardio: Rate: regular rate Heart sounds: S1 normal heart sound present and S2 normal heart sound present GI: Inspection: Yes normal to inspection Palpation (GI): Soft to palpation, Tenderness to palpation present (GI) in the epigastrum, in the RLQ and in the RUQ; with no rebound tenderness, no guarding and not rigid : General: Yes no CVA tenderness Back/Spine/Pelvis: Back: no CVA tenderness Skin: Rashes: no rashes Wounds: no wounds Neuro: General: patient oriented x3 and no meningeal signs Gait exam (Neuro): Normal gait present Extrem: General: Yes normal to inspection Objective Data Current Medications Generic Name Dose Route Start Last Admin Trade Name Freq PRN Reason Stop Dose Admin Acetaminophen 650 mg 05/26/20 17:30 05/29/20 04:12 Acetaminophen 325 Mg Tablet PO 650 mg Q6H PRN Administration Pain, Mild (Pain Scale 1-3) Amlodipine Besylate 10 mg 05/27/20 09:00 05/30/20 08:08 Amlodipine Besylate 10 Mg Tablet PO 10 mg DAILY [facility]ARA Administration Protocol Atorvastatin Calcium 80 mg 05/26/20 21:00 05/29/20 21:42 Atorvastatin Calcium 80 Mg Tablet PO 80 mg BEDTIME [facility] Administration Baclofen 10 mg 05/26/20 17:30 Baclofen 10 Mg Tablet PO TID PRN Muscle Spasm Calcium Carbonate 750 mg 05/28/20 19:40 05/28/20 20:00 Calcium Carbonate 750 Mg Tab.Chew PO 750 mg Q6H PRN Administration Heartburn Carvedilol 25 mg 05/26/20 21:00 05/30/20 08:08 Carvedilol 25 Mg Tablet PO 25 mg BID [facility]ARA Administration Protocol Cyanocobalamin 1,000 mcg 05/27/20 09:00 05/30/20 08:08 Cyanocobalamin (Vitamin B-12) 1,000 Mcg Tablet PO 1,000 mcg DAILY [facility]ARA Administration Dexamethasone Sodium Phosphate 6 mg 05/29/20 09:00 05/30/20 08:09 Dexamethasone Sod Phosphate 4 Mg/Ml Vial IVPUSH 6 mg DAILY [facility] Administration Fenofibrate 54 mg 05/26/20 21:00 05/29/20 21:42 Fenofibrate 54 Mg Tablet PO 54 mg BEDTIME [facility]ARA Administration Heparin Sodium (Porcine) 5,000 unit 05/30/20 06:00 05/30/20 05:41 Heparin Sodium,Porcine 5,000 Unit/Ml Vial SUBCUT 5,000 unit Q12H TIARA Administration Lactated Ringer's 1,000 mls @ 125 mls/hr 05/29/20 14:00 05/30/20 05:43 Lr IVCONT 125 mls/hr .Q8H [facility]ARA Administration Insulin Glargine 32 unit 05/26/20 21:00 05/29/20 20:40 Insulin Glargine,Hum.Rec.Anlog 100 Unit/Ml 10 Ml Vial SUBCUT Not Given BEDTIME [facility] Insulin Human Lispro 0 unit 05/26/20 21:00 05/30/20 08:09 Insulin Lispro 100 Unit/Ml 3 Ml Vial SUBCUT 2 unit QIDACHS [facility]ARA Administration Protocol Melatonin 6 mg 05/28/20 20:29 05/28/20 21:27 Melatonin 3 Mg Tablet PO 6 mg BEDTIME PRN Administration Insomnia Omeprazole 40 mg 05/27/20 10:45 05/30/20 05:42 Omeprazole 40 Mg Capsule.Dr PO 40 mg DAILY@0630 TIARA Administration Ondansetron HCl 4 mg 05/26/20 17:30 05/30/20 06:28 Ondansetron Hcl 4 Mg/2 Ml Vial IVPUSH 4 mg Q8H PRN Administration Nausea and Vomiting Pharmacy Consult 1 each 05/26/20 15:02 Consult Rx Perform Med Rec MISCELLANE ONCE PRN Consult order Sodium Chloride 3 ml 05/27/20 00:00 05/30/20 08:09 0.9 % Sodium Chloride Flush 3 Ml Syringe IVFLUSH 3 ml QSHIFT TIARA Administration Vitamin D 50 mcg 05/27/20 09:00 05/30/20 08:08 Cholecalciferol (Vitamin D3) 25 Mcg Tablet PO 50 mcg DAILY TIARA Administration Labs CBC & Chem 7: 05/30/20 08:40 05/30/20 08:40 Microbiology Microbiology Results: Microbiology 05/28/20 08:39 Blood - Venous Blood Culture - Preliminary No growth after 48 hours. 05/28/20 08:39 Blood - Venous Blood Culture - Preliminary No growth after 48 hours. Assessment and Plan (1) COVID-19: Status: Acute (2) MERLE (acute kidney injury): Status: Acute (3) Diarrhea: Status: Acute Assessment and Plan: 74-year-old male admitted with abdominal pain and dark color stools, COVID, MERLE on CKD 1. MERLE on CKD 3 SCr continues to rise will insert rodriguez to get accurate I/O -- still making urine by nursing documentation continue IVF nephrology on board -- will follow their recs 2. Abdominal pain / dark stools h/h stable and no evidence of acute GI bleed started on empiric PPI during the admission but in light of his worsening renal function, will switch over to H2 ancelmo. GI following as needed 3. DM sliding scale 4.HTN norvasc 5. CAD Hold aspirin Continue statin subcut. heparin -- h/h stable since starting, monitor
--- NOTE | 2020-05-30 12:02 | P.CONNP_ITS ---
History of Present Illness Reason for Consult Consult date: 05/30/20 Chief Complaint Chief complaint: GI Bleed, Covid Review of Systems Review of Systems Constitutional: weakness , No Chills, +Fatigue, +Malaise Cardiovascular: No Chest Pain, No SOB, No Edema, No Palpitations Respiratory: No Cough, No Wheezing, No Dyspnea Gastrointestinal: No Nausea, No Vomiting, + Diarrhea, No Constipation, + Abdominal pain, No Hematochezia, +black stool Genitourinary: No Dysuria, No Urinary Frequency, No Hematuria, No Flank Pain Musculoskeletal: No joint pain, No Myalgias, No Joint Swelling Skin: No Skin Lesions, No rash Neuro: No Loss of Consciousness, No Dizziness, No Headache Yes all other systems are reviewed and are negative [facility] Past Medical History Medical History Diabetes Hypertension Surgical History Surgical History History of open heart surgery Social History Social History Household Members: Spouse Housing: Apartment Do you presently have visiting nurse or other home services: No Alcohol intake: never Smoking Status: Never smoker Use of substances other than those prescribed or required for medical reasons: No Currently Displaying Signs/Symptoms of Drug Intoxication Withdrawal: No Have you been hit, kicked, punched, or otherwise hurt by someone within the past year? 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 Allergies Allergy/AdvReac Type Severity Reaction Status Date / Time morphine [MORPHINE] Allergy Intermediate HALLUCINATI Verified 05/27/20 15:22 ONS,TACHYCA RDIA morphine Allergy Unknown chills, Uncoded 11/20/19 00:00 vomiting Active Medications: Current Medications Generic Name Dose Route Start Last Admin Trade Name Freq PRN Reason Stop Dose Admin Acetaminophen 650 mg 05/26/20 17:30 05/29/20 04:12 Acetaminophen 325 Mg Tablet PO 650 mg Q6H PRN Administration Pain, Mild (Pain Scale 1-3) Amlodipine Besylate 10 mg 05/27/20 09:00 05/30/20 08:08 Amlodipine Besylate 10 Mg Tablet PO 10 mg DAILY TIARA Administration Protocol Atorvastatin Calcium 80 mg 05/26/20 21:00 05/29/20 21:42 Atorvastatin Calcium 80 Mg Tablet PO 80 mg BEDTIME TIARA Administration Baclofen 10 mg 05/26/20 17:30 Baclofen 10 Mg Tablet PO TID PRN Muscle Spasm Calcium Carbonate 750 mg 05/28/20 19:40 05/28/20 20:00 Calcium Carbonate 750 Mg Tab.Chew PO 750 mg Q6H PRN Administration Heartburn Carvedilol 25 mg 05/26/20 21:00 05/30/20 08:08 Carvedilol 25 Mg Tablet PO 25 mg BID TIARA Administration Protocol Cyanocobalamin 1,000 mcg 05/27/20 09:00 05/30/20 08:08 Cyanocobalamin (Vitamin B-12) 1,000 Mcg Tablet PO 1,000 mcg DAILY TIARA Administration Dexamethasone Sodium Phosphate 6 mg 05/29/20 09:00 05/30/20 08:09 Dexamethasone Sod Phosphate 4 Mg/Ml Vial IVPUSH 6 mg DAILY TIARA Administration Famotidine 20 mg 05/30/20 21:00 Famotidine 20 Mg Tablet PO BID TIARA Fenofibrate 54 mg 05/26/20 21:00 05/29/20 21:42 Fenofibrate 54 Mg Tablet PO 54 mg BEDTIME TIARA Administration Heparin Sodium (Porcine) 5,000 unit 05/30/20 06:00 05/30/20 05:41 Heparin Sodium,Porcine 5,000 Unit/Ml Vial SUBCUT 5,000 unit Q12H TIARA Administration Lactated Ringer's 1,000 mls @ 125 mls/hr 05/29/20 14:00 05/30/20 05:43 Lr IVCONT 125 mls/hr .Q8H TIARA Administration Insulin Glargine 32 unit 05/26/20 21:00 05/29/20 20:40 Insulin Glargine,Hum.Rec.Anlog 100 Unit/Ml 10 Ml Vial SUBCUT Not Given BEDTIME TIARA Insulin Human Lispro 0 unit 05/26/20 21:00 05/30/20 08:09 Insulin Lispro 100 Unit/Ml 3 Ml Vial SUBCUT 2 unit QIDACHS [facility] Administration Protocol Melatonin 6 mg 05/28/20 20:29 05/28/20 21:27 Melatonin 3 Mg Tablet PO 6 mg BEDTIME PRN Administration Insomnia Ondansetron HCl 4 mg 05/26/20 17:30 05/30/20 06:28 Ondansetron Hcl 4 Mg/2 Ml Vial IVPUSH 4 mg Q8H PRN Administration Nausea and Vomiting Pharmacy Consult 1 each 05/26/20 15:02 Consult Rx Perform Med Rec MISCELLANE ONCE PRN Consult order Sodium Chloride 3 ml 05/27/20 00:00 05/30/20 08:09 0.9 % Sodium Chloride Flush 3 Ml Syringe IVFLUSH 3 ml QSHIFT [facility] Administration Vitamin D 50 mcg 05/27/20 09:00 05/30/20 08:08 Cholecalciferol (Vitamin D3) 25 Mcg Tablet PO 50 mcg DAILY [facility] Administration Home Medications Medication Instructions Recorded Confirmed Last Taken Type omeprazole 20 mg capsule,delayed 20 mg PO DAILY 03/12/20 05/26/20 Unknown History release acetaminophen [Arthritis Pain 650 mg PO Q8H PRN 05/26/20 05/26/20 Unknown History Reliever] amlodipine 10 mg PO DAILY 05/26/20 05/26/20 Unknown History aspirin 81 mg PO DAILY 05/26/20 05/26/20 Unknown History baclofen 10 mg PO TID PRN 05/26/20 05/26/20 Unknown History carvedilol [Coreg] 25 mg PO BID 05/26/20 05/26/20 Unknown History cholecalciferol (vitamin D3) 50 mcg PO DAILY 05/26/20 05/26/20 Unknown History [Vitamin D3] cyanocobalamin (vitamin B-12) 1,000 mcg PO DAILY 05/26/20 05/26/20 Unknown History [Vitamin B-12] fenofibrate nanocrystallized 48 mg PO BEDTIME 05/26/20 05/26/20 Unknown History furosemide 40 mg PO BIDWM 05/26/20 05/26/20 Unknown History insulin aspart U-100 [Novolog 10 unit SUBCUT TIDWM 05/26/20 05/26/20 Unknown History Flexpen U-100 Insulin] insulin glargine [Lantus Solostar 32 unit SUBCUT BEDTIME 05/26/20 05/26/20 Unknown History U-100 Insulin] losartan 25 mg PO DAILY 05/26/20 05/26/20 Unknown History rosuvastatin 20 mg PO BEDTIME 05/26/20 05/26/20 Unknown History Physical Exam Vital Signs: Last Vital Signs Temp 97.8 F 05/30/20 11:03 Pulse 70 05/30/20 11:03 Resp 18 05/30/20 11:03 BP 134/64 05/30/20 11:03 Pulse Ox 93 05/30/20 11:03 Body Mass Index 31.6 Const General: cooperative, healthy appearing and no acute distress Orientation/consciousness: patient oriented x3 Limitations: no limitations HENMT Head: Yes normal to inspection Ears: hearing grossly normal bilaterally General nose exam: Normal external nose present Face and sinus: Yes normal facial exam Eyes General: appearance normal, both eyes and all related structures EOM: EOMs intact bilaterally Neck Neck: Yes normal visual inspection, Yes no meningeal signs and Yes no JVD Resp Effort & Inspection: normal respiratory effort Auscultation: clear to auscultation bilaterally, no rales, no rhonchi and no wheezes Cardio Jugular venous distension: no JVD Rate: regular rate Heart sounds: S1 normal heart sound present and S2 normal heart sound present GI Inspection: Yes normal to inspection Palpation (GI): Soft to palpation, Tenderness to palpation present (GI) in the epigastrum, in the RLQ and in the RUQ; with no rebound tenderness, no guarding and not rigid General: Yes no CVA tenderness Back/Spine/Pelvis Back: no CVA tenderness Skin General skin exam: dry skin Rashes: no rashes Wounds: no wounds Neuro General: patient oriented x3 and no meningeal signs Gait exam (Neuro): Normal gait present Motor exam (neuro): No Asterixis during motor activity present Extrem General: Yes normal to inspection Results Lab Results Result Diagrams: 05/30/20 08:40 05/30/20 08:40 Lab results: Chemistry 05/29/20 05/30/20 08:30 08:40 Sodium 138 139 Potassium 3.6 3.7 Carbon Dioxide 20 L 19 L BUN 49 H 64 H Creatinine 5.16 H* 5.77 H* Calcium 7.2 L 7.3 L Hematology 05/29/20 05/30/20 08:30 08:40 WBC 6.0 7.5 Hgb 9.9 L 10.4 L Plt Count 183 D 249 D Assessment and Plan (1) COVID-19: Status: Acute (2) MERLE (acute kidney injury): Status: Acute (3) Diarrhea: Qualifiers: Diarrhea type: unspecified type Qualified Code(s): R19.7 - Diarrhea, unspecified Status: Acute 74-year-old male admitted with abdominal pain and dark color stools, COVID, MERLE on CKD 1. MERLE on CKD 3 SCr continues to rise will insert rodriguez to get accurate I/O -- still making urine by nursing documentation continue IVF uo is around 600 cc hr 2. Abdominal pain / dark stools h/h stable and no evidence of acute GI bleed started on empiric PPI during the admission but in light of his worsening renal function, will switch over to H2 ancelmo. GI following as needed 3. DM sliding scale 4.HTN norvasc 5. CAD Hold aspirin Continue statin subcut. heparin -- h/h stable since starting, monitor Procedures Date of Service Date of Service: 05/30/20
[2020-05-30 16:22] LABS: Glucose, Whole Blood 242 mg/dL (60-115)
[2020-05-30] MEDS: Acetaminophen 325 MG TABLET 650 MG PO (18:26)
[2020-05-30 20:41] LABS: Glucose, Whole Blood 248 mg/dL (60-115)
[2020-05-30] MEDS: Baclofen 10 MG TABLET PO (21:58)
[2020-05-30] MEDS: Famotidine 20 MG TABLET PO (21:58)
[2020-05-30] MEDS: Atorvastatin Calcium 80 MG TABLET PO (21:58)
[2020-05-30] MEDS: Fenofibrate 54 MG TABLET PO (21:58)
[2020-05-30] MEDS: Insulin Glargine,Hum.rec.anlog 100 UNIT/ML 10 ML VIAL 32 UNIT SUBCUT (21:59)
[2020-05-31] VITALS (7 sets, daily range): BP systolic 121–146; BP diastolic 60–78; PULSE 60–74; RESP 18–20; TEMP 36.4–36.8; O2SAT 92–95
[2020-05-31] MEDS: Acetaminophen 325 MG TABLET 650 MG PO (01:27)
[2020-05-31 06:47] LABS: Hematocrit 28.7 % (42-52); Mean Corpuscular HGB Conc 34.8 g/dl (31.0-36.0); Mean Corpuscular Hemoglobin 30.6 pg (27.0-33.0); Mean Corpuscular Volume 87.8 fL (80-98); Mean Platelet Volume 10.5 fL (9.4-12.4); Platelet Count 269 X10*3/uL (160-400); Red Blood Count 3.27 X10*6/uL (4.60-5.80); Red Cell Distribution Width 13.2 % (11.0-16.0)
[2020-05-31] MEDS: Heparin Sodium,Porcine 5,000 UNIT/ML VIAL 5000 UNIT SUBCUT ×2 (06:49→17:49)
[2020-05-31 07:08] LABS: Anion Gap 15 (12-20); Carbon Dioxide 20 mmol/L (22-29); Chloride 107 mmol/L (96-108); Potassium 3.9 mmol/L (3.3-5.1); Sodium 138 mmol/L (135-145)
[2020-05-31 07:18] LABS: Blood Urea Nitrogen 75 mg/dL (9-16); Calcium 7.5 mg/dL (8.4-10.2); Glucose Random 203 mg/dL (60-115)
[2020-05-31 07:34] LABS: Glucose, Whole Blood 189 mg/dL (60-115)
[2020-05-31 07:44] LABS: Creatinine Clr Calc Pharmacy 12.6; Estimated Glomerular Filt Rate 10
[2020-05-31] MEDS: Insulin Lispro 100 UNIT/ML 3 ML VIAL SUBCUT ×4 (07:45→19:24)
[2020-05-31] MEDS: dexAMETHasone sod phosphate 4 MG/ML VIAL 6 MG IVPUSH (08:13)
[2020-05-31] MEDS: carvediloL 25 MG TABLET PO ×2 (08:13→19:26)
[2020-05-31] MEDS: Cyanocobalamin (Vitamin B-12) 1,000 MCG TABLET 1000 MCG PO (08:13)
[2020-05-31] MEDS: amLODIPine Besylate 10 MG TABLET PO (08:13)
[2020-05-31] MEDS: Famotidine 20 MG TABLET PO ×2 (08:13→19:24)
[2020-05-31] MEDS: Cholecalciferol (Vitamin D3) 25 MCG TABLET 50 MCG PO (08:13)
[2020-05-31] MEDS: 0.9 % Sodium Chloride Flush 3 ML SYRINGE IVFLUSH ×2 (08:14→19:31)
--- NOTE | 2020-05-31 10:23 | PC.NURSE ---
Pt. A+Ox3, denies pain, ate half of breakfast, OOB to bathroom with walker and 1 assist, LS clear, on room air, no SOB noted, rodriguez in place draining cloudy yellow urine with sediment, resting in recliner, call mensah in reach
[2020-05-31 11:44] LABS: Glucose, Whole Blood 208 mg/dL (60-115)
--- NOTE | 2020-05-31 13:23 | P.PNIM_ITS ---
Subjective Subjective Date of Service: 05/31/20 Interval History: Patient seen and examined at bedside Patient denies any complaint making urine Review of Systems Constitutional: weakness , No Chills, +Fatigue, +Malaise Cardiovascular: No Chest Pain, No SOB, No Edema, No Palpitations Respiratory: No Cough, No Wheezing, No Dyspnea Gastrointestinal: No Nausea, No Vomiting, + Diarrhea, No Constipation, + Abdominal pain, No Hematochezia, +black stool Genitourinary: No Dysuria, No Urinary Frequency, No Hematuria, No Flank Pain Musculoskeletal: No joint pain, No Myalgias, No Joint Swelling Skin: No Skin Lesions, No rash Neuro: No Loss of Consciousness, No Dizziness, No Headache Physical Exam Vital Signs: Vital Signs: Last Vital Signs Temp 98.1 F 05/31/20 11:58 Pulse 68 05/31/20 11:58 Resp 20 05/31/20 11:58 BP 121/67 05/31/20 11:58 Pulse Ox 93 05/31/20 11:58 Body Mass Index 31.6 Const: General: cooperative, healthy appearing and no acute distress Orientation/consciousness: patient oriented x3 Limitations: no limitations HENMT: Head: Yes normal to inspection Ears: hearing grossly normal bilaterally General nose exam: Normal external nose present Face and sinus: Yes normal facial exam Eyes: General: appearance normal, both eyes and all related structures EOM: EOMs intact bilaterally Neck: Neck: Yes normal visual inspection and Yes no meningeal signs Resp: Effort & Inspection: normal respiratory effort Auscultation: clear to auscultation bilaterally, no rales, no rhonchi and no wheezes Cardio: Rate: regular rate Heart sounds: S1 normal heart sound present and S2 normal heart sound present GI: Inspection: Yes normal to inspection Palpation (GI): Soft to palpation, Tenderness to palpation present (GI) in the epigastrum, in the RLQ and in the RUQ; with no rebound tenderness, no guarding and not rigid : General: Yes no CVA tenderness Back/Spine/Pelvis: Back: no CVA tenderness Skin: Rashes: no rashes Wounds: no wounds Neuro: General: patient oriented x3 and no meningeal signs Gait exam (Neuro): Normal gait present Extrem: General: Yes normal to inspection Objective Data Current Medications Generic Name Dose Route Start Last Admin Trade Name Freq PRN Reason Stop Dose Admin Acetaminophen 650 mg 05/26/20 17:30 05/31/20 01:27 Acetaminophen 325 Mg Tablet PO 650 mg Q6H PRN Administration Pain, Mild (Pain Scale 1-3) Amlodipine Besylate 10 mg 05/27/20 09:00 05/31/20 08:13 Amlodipine Besylate 10 Mg Tablet PO 10 mg DAILY TIARA Administration Protocol Atorvastatin Calcium 80 mg 05/26/20 21:00 05/30/20 21:58 Atorvastatin Calcium 80 Mg Tablet PO 80 mg BEDTIME TIARA Administration Baclofen 10 mg 05/26/20 17:30 05/30/20 21:58 Baclofen 10 Mg Tablet PO 10 mg TID PRN Administration Muscle Spasm Calcium Carbonate 750 mg 05/28/20 19:40 05/28/20 20:00 Calcium Carbonate 750 Mg Tab.Chew PO 750 mg Q6H PRN Administration Heartburn Carvedilol 25 mg 05/26/20 21:00 05/31/20 08:13 Carvedilol 25 Mg Tablet PO 25 mg BID TIARA Administration Protocol Cyanocobalamin 1,000 mcg 05/27/20 09:00 05/31/20 08:13 Cyanocobalamin (Vitamin B-12) 1,000 Mcg Tablet PO 1,000 mcg DAILY TIARA Administration Dexamethasone Sodium Phosphate 6 mg 05/29/20 09:00 05/31/20 08:13 Dexamethasone Sod Phosphate 4 Mg/Ml Vial IVPUSH 6 mg DAILY TIARA Administration Famotidine 20 mg 05/30/20 21:00 05/31/20 08:13 Famotidine 20 Mg Tablet PO 20 mg BID TIARA Administration Fenofibrate 54 mg 05/26/20 21:00 05/30/20 21:58 Fenofibrate 54 Mg Tablet PO 54 mg BEDTIME TIARA Administration Heparin Sodium (Porcine) 5,000 unit 05/30/20 06:00 05/31/20 06:49 Heparin Sodium,Porcine 5,000 Unit/Ml Vial SUBCUT 5,000 unit Q12H TIARA Administration Lactated Ringer's 1,000 mls @ 125 mls/hr 05/29/20 14:00 05/31/20 06:47 Lr IVCONT Not Given .Q8H TIARA Insulin Glargine 32 unit 05/26/20 21:00 05/30/20 21:59 Insulin Glargine,Hum.Rec.Anlog 100 Unit/Ml 10 Ml Vial SUBCUT 32 unit BEDTIME TIARA Administration Insulin Human Lispro 0 unit 05/26/20 21:00 05/31/20 12:05 Insulin Lispro 100 Unit/Ml 3 Ml Vial SUBCUT 4 unit QIDACHS TIARA Administration Protocol Melatonin 6 mg 05/28/20 20:29 05/28/20 21:27 Melatonin 3 Mg Tablet PO 6 mg BEDTIME PRN Administration Insomnia Ondansetron HCl 4 mg 05/26/20 17:30 05/30/20 06:28 Ondansetron Hcl 4 Mg/2 Ml Vial IVPUSH 4 mg Q8H PRN Administration Nausea and Vomiting Pharmacy Consult 1 each 05/26/20 15:02 Consult Rx Perform Med Rec MISCELLANE ONCE PRN Consult order Sodium Chloride 3 ml 05/27/20 00:00 05/31/20 08:14 0.9 % Sodium Chloride Flush 3 Ml Syringe IVFLUSH 3 ml QSHIFT [facility] Administration Vitamin D 50 mcg 05/27/20 09:00 05/31/20 08:13 Cholecalciferol (Vitamin D3) 25 Mcg Tablet PO 50 mcg DAILY TIARA Administration Labs CBC & Chem 7: 05/31/20 05:58 05/31/20 05:58 Microbiology Microbiology Results: Microbiology 05/28/20 08:39 Blood - Venous Blood Culture - Preliminary No growth after 48 hours. 05/28/20 08:39 Blood - Venous Blood Culture - Preliminary No growth after 48 hours. Assessment and Plan (1) COVID-19: Status: Acute (2) MERLE (acute kidney injury): Status: Acute (3) Diarrhea: Status: Acute Assessment and Plan: 74-year-old male admitted with abdominal pain and dark color stools Acute on chronic kidney injury Creatinine still around 5.8 Monitor kidney function Avoid nephrotoxins continue IV fluid Nephrology following making urine Abdominal pain with Dark stool resolved Stool for occult blood was negative Seen by GI recommended medical management as H&H stable and stool for occult negative and no signs of GI bleed likely gastritis Continue PPI H&H stable Monitor H&H Stool for occult negative Diabetes mellitus Continue SSI Monitor blood glucose Hypertension Continue amlodipine CAD Hold aspirin Continue statin DVT prophylaxis intial on venodyne as h/h stable and no evidence of gi bleed continue heparin subQ
--- NOTE | 2020-05-31 13:37 | MHC.CM.PN ---
DP Home no services with family transport. CM will follow to assess change in DC needs. LOS R/T Acute on chronic renal failure. Per MD rounds renal function, as indicated by lab work today.
[2020-05-31 16:46] LABS: Glucose, Whole Blood 169 mg/dL (60-115)
--- NOTE | 2020-05-31 18:16 | PM.PNNEP ---
Subjective Subjective Date of Service: 05/31/20 Interval history: Seen and examined. Events noted No SOB GI symptoms better Physical Exam Vital Signs: Vital Signs: Last Vital Signs Temp 98.2 F 05/31/20 15:31 Pulse 60 05/31/20 15:31 Resp 18 05/31/20 15:31 BP 137/70 05/31/20 15:31 Pulse Ox 93 05/31/20 15:31 Body Mass Index 31.6 Const: General: cooperative, healthy appearing and no acute distress Orientation/consciousness: patient oriented x3 Limitations: no limitations HENMT: Head: Yes normal to inspection Ears: hearing grossly normal bilaterally General nose exam: Normal external nose present Face and sinus: Yes normal facial exam Eyes: General: appearance normal, both eyes and all related structures EOM: EOMs intact bilaterally Neck: Neck: Yes normal visual inspection, Yes no meningeal signs and Yes no JVD Resp: Effort & Inspection: normal respiratory effort Auscultation: clear to auscultation bilaterally, no rales, no rhonchi and no wheezes Cardio: Jugular venous distension: no JVD Rate: regular rate Heart sounds: S1 normal heart sound present and S2 normal heart sound present GI: Inspection: Yes normal to inspection Palpation (GI): Soft to palpation, Tenderness to palpation present (GI) in the epigastrum, in the RLQ and in the RUQ; with no rebound tenderness, no guarding and not rigid : General: Yes no CVA tenderness Back/Spine/Pelvis: Back: no CVA tenderness Skin: General skin exam: dry skin Rashes: no rashes Wounds: no wounds Neuro: General: patient oriented x3 and no meningeal signs Gait exam (Neuro): Normal gait present Motor exam (neuro): No Asterixis during motor activity present Extrem: General: Yes normal to inspection Objective Data Labs CBC & Chem 7: 05/31/20 05:58 05/31/20 05:58 Labs: Laboratory Results - last 24 hr 05/30/20 05/31/20 05/31/20 20:27 05:58 05:58 WBC 8.0 RBC 3.27 L Hgb 10.0 L Hct 28.7 L MCV 87.8 MCH 30.6 MCHC 34.8 RDW 13.2 Plt Count 269 MPV 10.5 Absolute Nucleated RBC 0.000 Nucleated RBC % (auto) 0.0 Sodium 138 Potassium 3.9 Chloride 107 Carbon Dioxide 20 L Anion Gap 15 BUN 75 H Creatinine 5.87 H* Estim Creat Clear Calc 12.6 Estimated GFR 10 POC Glucose 248 H Random Glucose 203 H Calcium 7.5 L Total Creatine Kinase 302 H 05/31/20 05/31/20 05/31/20 07:29 11:38 16:18 WBC RBC Hgb Hct MCV MCH MCHC RDW Plt Count MPV Absolute Nucleated RBC Nucleated RBC % (auto) Sodium Potassium Chloride Carbon Dioxide Anion Gap BUN Creatinine Estim Creat Clear Calc Estimated GFR POC Glucose 189 H 208 H 169 H Random Glucose Calcium Total Creatine Kinase Microbiology Microbiology Results: Microbiology 05/28/20 08:39 Blood - Venous Blood Culture - Preliminary No growth after 48 hours. 05/28/20 08:39 Blood - Venous Blood Culture - Preliminary No growth after 48 hours. Assessment & Plan Assessment and plan (1) COVID-19: Status: Acute (2) MERLE (acute kidney injury): Status: Acute (3) Diarrhea: Status: Acute Assessment and Plan: 74-year-old male COVID positive admitted with abdominal pain and dark color stools and MERLE on CKD 1. MERLE: DDx includes IV vol depletion and pre-renal, multifact ATN with ques of COVID assoc tubukar-interstial injury; doubt Obs given rodriguez in place 2. GI: ongoing tx/eval 3. CKD 4: bsl Scr 2.0- 3.0 most c/w DN/HTN renal dis REC: cont IVF; track UOP/renal func; no indication for HD at this time and hopefully can avoid will recheck urine studies will follow with team Time Spent With Patient Time: Total time spent is greater than 50% in coordination of care (as documented) at patient's floor/unit and/or counseling patient: Procedures Date of Service Date of Service: 05/31/20
[2020-05-31 19:06] LABS: Glucose, Whole Blood 227 mg/dL (60-115)
[2020-05-31] MEDS: Insulin Glargine,Hum.rec.anlog 100 UNIT/ML 10 ML VIAL 32 UNIT SUBCUT (19:24)
[2020-05-31] MEDS: Atorvastatin Calcium 80 MG TABLET PO (19:24)
[2020-05-31] MEDS: Melatonin 3 MG TABLET 6 MG PO (19:24)
[2020-05-31] MEDS: Fenofibrate 54 MG TABLET PO (19:25)
[2020-05-31] MEDS: Lactated Ringers 1,000 ML 125 ML IVCONT (19:28)
[2020-05-31 19:31] LABS: Creatinine Urine 102.93 mg/dL
[2020-05-31 19:57] LABS: Total Protein Urine Random 1024 mg/dL (<12)
[2020-06-01] VITALS (8 sets, daily range): BP systolic 134–162; BP diastolic 60–80; PULSE 59–72; RESP 18–20; TEMP 36.2–36.6; O2SAT 92–95
[2020-06-01] MEDS: traZODone HCL 25 MG HALFTAB PO (01:35)
[2020-06-01] MEDS: hydrOXYzine HCL 25 MG TABLET PO (01:35)
[2020-06-01] MEDS: Lactated Ringers 1,000 ML 125 ML IVCONT ×2 (02:44→11:26)
[2020-06-01] MEDS: Heparin Sodium,Porcine 5,000 UNIT/ML VIAL 5000 UNIT SUBCUT ×2 (05:02→17:45)
[2020-06-01 07:11] LABS: Glucose, Whole Blood 116 mg/dL (60-115)
[2020-06-01] MEDS: Famotidine 20 MG TABLET PO ×2 (08:12→20:13)
[2020-06-01] MEDS: Cholecalciferol (Vitamin D3) 25 MCG TABLET 50 MCG PO (08:12)
[2020-06-01] MEDS: dexAMETHasone sod phosphate 4 MG/ML VIAL 6 MG IVPUSH (08:12)
[2020-06-01] MEDS: amLODIPine Besylate 10 MG TABLET PO (08:12)
[2020-06-01] MEDS: carvediloL 25 MG TABLET PO ×2 (08:12→20:13)
[2020-06-01] MEDS: Cyanocobalamin (Vitamin B-12) 1,000 MCG TABLET 1000 MCG PO (08:13)
[2020-06-01] MEDS: 0.9 % Sodium Chloride Flush 3 ML SYRINGE IVFLUSH (08:13)
[2020-06-01 09:51] LABS: Anion Gap 13 (12-20); Blood Urea Nitrogen 81 mg/dL (9-16); Calcium 7.6 mg/dL (8.4-10.2); Carbon Dioxide 21 mmol/L (22-29); Chloride 110 mmol/L (96-108); Creatinine Clr Calc Pharmacy 12.3; Estimated Glomerular Filt Rate 9; Glucose Random 122 mg/dL (60-115); Potassium 3.7 mmol/L (3.3-5.1); Sodium 140 mmol/L (135-145)
--- NOTE | 2020-06-01 10:20 | PC.NURSE ---
Pt. 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 softly distended, +BS, rodriguez in place for output monitoring, draining cloudy yellow urine with sediment, BUN and creatinine higher than yesterday- MD notified, LR running at 125mL/hr, resting in bed, bed alarm on for safety, Avasys in room
[2020-06-01 11:13] LABS: Glucose, Whole Blood 109 mg/dL (60-115)
--- NOTE | 2020-06-01 13:59 | P.PNIM_ITS ---
Subjective Subjective Date of Service: 06/01/20 Interval History: Patient seen and examined at bedside Patient was more confused today still making urine Review of Systems Constitutional: weakness , No Chills, +Fatigue, +Malaise Cardiovascular: No Chest Pain, No SOB, No Edema, No Palpitations Respiratory: No Cough, No Wheezing, No Dyspnea Gastrointestinal: No Nausea, No Vomiting, + Diarrhea, No Constipation, + Abdominal pain, No Hematochezia, +black stool Genitourinary: No Dysuria, No Urinary Frequency, No Hematuria, No Flank Pain Musculoskeletal: No joint pain, No Myalgias, No Joint Swelling Skin: No Skin Lesions, No rash Neuro: No Loss of Consciousness, No Dizziness, No Headache Physical Exam Vital Signs: Vital Signs: Last Vital Signs Temp 97.7 F 06/01/20 11:14 Pulse 59 06/01/20 11:14 Resp 18 06/01/20 11:14 BP 155/73 H 06/01/20 11:14 Pulse Ox 94 06/01/20 11:14 Body Mass Index 31.6 Const: General: cooperative, healthy appearing and no acute distress Orientation/consciousness: patient oriented x3 Limitations: no limitations HENMT: Head: Yes normal to inspection Ears: hearing grossly normal bilaterally General nose exam: Normal external nose present Face and sinus: Yes normal facial exam Eyes: General: appearance normal, both eyes and all related structures EOM: EOMs intact bilaterally Neck: Neck: Yes normal visual inspection and Yes no meningeal signs Resp: Effort & Inspection: normal respiratory effort Auscultation: clear to auscultation bilaterally, no rales, no rhonchi and no wheezes Cardio: Rate: regular rate Heart sounds: S1 normal heart sound present and S2 normal heart sound present GI: Inspection: Yes normal to inspection Palpation (GI): Soft to palpation, Tenderness to palpation present (GI) in the epigastrum, in the RLQ and in the RUQ; with no rebound tenderness, no guarding and not rigid : General: Yes no CVA tenderness Back/Spine/Pelvis: Back: no CVA tenderness Skin: Rashes: no rashes Wounds: no wounds Neuro: General: patient oriented x3 and no meningeal signs Gait exam (Neuro): Normal gait present Extrem: General: Yes normal to inspection Objective Data Current Medications Generic Name Dose Route Start Last Admin Trade Name Freq PRN Reason Stop Dose Admin Acetaminophen 650 mg 03/03/21 17:30 05/31/20 01:27 Acetaminophen 325 Mg Tablet PO 650 mg Q6H PRN Administration Pain, Mild (Pain Scale 1-3) Amlodipine Besylate 10 mg 05/27/20 09:00 06/01/20 08:12 Amlodipine Besylate 10 Mg Tablet PO 10 mg DAILY TIARA Administration Protocol Atorvastatin Calcium 80 mg 05/26/20 21:00 05/31/20 19:24 Atorvastatin Calcium 80 Mg Tablet PO 80 mg BEDTIME TIARA Administration Baclofen 10 mg 05/26/20 17:30 05/30/20 21:58 Baclofen 10 Mg Tablet PO 10 mg TID PRN Administration Muscle Spasm Calcium Carbonate 750 mg 05/28/20 19:40 05/28/20 20:00 Calcium Carbonate 750 Mg Tab.Chew PO 750 mg Q6H PRN Administration Heartburn Carvedilol 25 mg 05/26/20 21:00 06/01/20 08:12 Carvedilol 25 Mg Tablet PO 25 mg BID TIARA Administration Protocol Cyanocobalamin 1,000 mcg 05/27/20 09:00 06/01/20 08:13 Cyanocobalamin (Vitamin B-12) 1,000 Mcg Tablet PO 1,000 mcg DAILY TIARA Administration Famotidine 20 mg 05/30/20 21:00 06/01/20 08:12 Famotidine 20 Mg Tablet PO 20 mg BID TIARA Administration Fenofibrate 54 mg 05/26/20 21:00 05/31/20 19:25 Fenofibrate 54 Mg Tablet PO 54 mg BEDTIME TIARA Administration Heparin Sodium (Porcine) 5,000 unit 05/30/20 06:00 06/01/20 05:02 Heparin Sodium,Porcine 5,000 Unit/Ml Vial SUBCUT 5,000 unit Q12H TIARA Administration Hydroxyzine HCl 25 mg 06/01/20 01:26 06/01/20 01:35 Hydroxyzine Hcl 25 Mg Tablet PO 25 mg Q8H PRN Administration Anxiety Lactated Ringer's 1,000 mls @ 125 mls/hr 05/29/20 14:00 06/01/20 11:26 Lr IVCONT 125 mls/hr .Q8H TIARA Administration Insulin Glargine 32 unit 05/26/20 21:00 05/31/20 19:24 Insulin Glargine,Hum.Rec.Anlog 100 Unit/Ml 10 Ml Vial SUBCUT 32 unit BEDTIME TIARA Administration Insulin Human Lispro 0 unit 05/26/20 21:00 06/01/20 11:34 Insulin Lispro 100 Unit/Ml 3 Ml Vial SUBCUT Not Given QIDACHS [facility] Protocol Melatonin 6 mg 05/28/20 20:29 05/31/20 19:24 Melatonin 3 Mg Tablet PO 6 mg BEDTIME PRN Administration Insomnia Ondansetron HCl 4 mg 05/26/20 17:30 05/30/20 06:28 Ondansetron Hcl 4 Mg/2 Ml Vial IVPUSH 4 mg Q8H PRN Administration Nausea and Vomiting Pharmacy Consult 1 each 05/26/20 15:02 Consult Rx Perform Med Rec MISCELLANE ONCE PRN Consult order Sodium Chloride 3 ml 05/27/20 00:00 06/01/20 08:13 0.9 % Sodium Chloride Flush 3 Ml Syringe IVFLUSH 3 ml QSHIFT [facility] Administration Vitamin D 50 mcg 05/27/20 09:00 06/01/20 08:12 Cholecalciferol (Vitamin D3) 25 Mcg Tablet PO 50 mcg DAILY ITARA Administration Labs CBC & Chem 7: 05/31/20 05:58 06/01/20 08:41 Microbiology Microbiology Results: Microbiology 05/28/20 08:39 Blood - Venous Blood Culture - Preliminary No growth after 48 hours. 05/28/20 08:39 Blood - Venous Blood Culture - Preliminary No growth after 48 hours. Assessment and Plan (1) COVID-19: Status: Acute (2) MERLE (acute kidney injury): Status: Acute (3) Diarrhea: Status: Acute Assessment and Plan: 74-year-old male admitted with abdominal pain and dark color stools Acute on chronic kidney injury Creatinine slowly trending up creatinine around 6 today Monitor kidney function Avoid nephrotoxins increased IV fluid Nephrology following making urine Abdominal pain with Dark stool resolved less likely GI bleed Stool for occult blood was negative Seen by GI recommended medical management as H&H stable and stool for occult negative and no signs of GI bleed likely gastritis Continue PPI H&H stable Monitor H&H Stool for occult negative Diabetes mellitus Continue SSI Monitor blood glucose Hypertension Continue amlodipine CAD Hold aspirin Continue statin DVT prophylaxis intial on venodyne as h/h stable and no evidence of gi bleed continue heparin subQ
[2020-06-01] MEDS: 0.9 % Sodium Chloride 1,000 ML 125 ML IVCONT (15:55)
[2020-06-01 16:13] LABS: Glucose, Whole Blood 157 mg/dL (60-115)
[2020-06-01] MEDS: Insulin Lispro 100 UNIT/ML 3 ML VIAL SUBCUT (16:39)
--- NOTE | 2020-06-01 19:08 | PM.PNNEP ---
Subjective Subjective Date of Service: 06/13/20 Interval history: Seen and examined. Events noted Scr cont to grad incr despite IVF Physical Exam Vital Signs: Vital Signs: Last Vital Signs Temp 97.9 F 06/01/20 19:03 Pulse 65 06/01/20 19:03 Resp 18 06/01/20 19:03 BP 155/80 H 06/01/20 19:03 Pulse Ox 95 06/01/20 19:03 Body Mass Index 31.6 Const: General: cooperative, healthy appearing and no acute distress Orientation/consciousness: patient oriented x3 Limitations: no limitations HENMT: Head: Yes normal to inspection Ears: hearing grossly normal bilaterally General nose exam: Normal external nose present Face and sinus: Yes normal facial exam Eyes: General: appearance normal, both eyes and all related structures EOM: EOMs intact bilaterally Neck: Neck: Yes normal visual inspection, Yes no meningeal signs and Yes no JVD Resp: Effort & Inspection: normal respiratory effort Auscultation: clear to auscultation bilaterally, no rales, no rhonchi and no wheezes Cardio: Jugular venous distension: no JVD Rate: regular rate Heart sounds: S1 normal heart sound present and S2 normal heart sound present GI: Inspection: Yes normal to inspection Palpation (GI): Soft to palpation, Tenderness to palpation present (GI) in the epigastrum, in the RLQ and in the RUQ; with no rebound tenderness, no guarding and not rigid : General: Yes no CVA tenderness Back/Spine/Pelvis: Back: no CVA tenderness Skin: General skin exam: dry skin Rashes: no rashes Wounds: no wounds Neuro: General: patient oriented x3 and no meningeal signs Gait exam (Neuro): Normal gait present Motor exam (neuro): No Asterixis during motor activity present Extrem: General: Yes normal to inspection Objective Data Labs CBC & Chem 7: 06/05/20 06:08 06/06/20 06:11 Labs: Laboratory Results - last 24 hr 05/31/20 06/01/20 06/01/20 18:50 07:04 08:41 Sodium 140 Potassium 3.7 Chloride 110 H Carbon Dioxide 21 L Anion Gap 13 BUN 81 H* Creatinine 6.01 H* Estim Creat Clear Calc 12.3 Estimated GFR 9 POC Glucose 116 H Random Glucose 122 H D Calcium 7.6 L U Random Total Protein 1024 H Ur Random Sodium 32.0 Urine Creatinine 102.93 06/01/20 06/01/20 11:07 16:08 Sodium Potassium Chloride Carbon Dioxide Anion Gap BUN Creatinine Estim Creat Clear Calc Estimated GFR POC Glucose 109 157 H Random Glucose Calcium U Random Total Protein Ur Random Sodium Urine Creatinine Microbiology Microbiology Results: Microbiology 05/28/20 08:39 Blood - Venous Blood Culture - Preliminary No growth after 48 hours. 05/28/20 08:39 Blood - Venous Blood Culture - Preliminary No growth after 48 hours. Assessment & Plan Assessment and plan (1) COVID-19: (2) MERLE (acute kidney injury): Status: Acute (3) Diarrhea: Assessment and Plan: 74-year-old male COVID positive admitted with abdominal pain and dark color stools and MERLE on CKD 1. MERLE: DDx includes IV vol depletion and pre-renal, multifact ATN with ques of COVID assoc tubukar-interstial injury; doubt Obs given rodriguez in place w/u thus far reveals marked Uprot excretion based o Up/Cr ratio but ques accuracy in setting of MERLE; nontheless need to proceed with additional sero ( I will order) 2. GI: ongoing tx/eval 3. CKD 4: bsl Scr 2.0- 3.0 most c/w DN/HTN renal dis No indication for HD at this point but if cont WRF could end up needing HD; will need to consider kidney Bx later this week if cont renal func does not plateau and/or begin recoverung REC: cont IVF; track UOP/renal func; no indication for HD at this time and hopefully can avoid; sero as norma will follow with team Time Spent With Patient Time: Total time spent is greater than 50% in coordination of care (as documented) at patient's floor/unit and/or counseling patient:
[2020-06-01 20:03] LABS: Glucose, Whole Blood 153 mg/dL (60-115)
[2020-06-01] MEDS: Atorvastatin Calcium 80 MG TABLET PO (20:13)
[2020-06-01] MEDS: Fenofibrate 54 MG TABLET PO (20:13)
[2020-06-01] MEDS: Insulin Glargine,Hum.rec.anlog 100 UNIT/ML 10 ML VIAL 32 UNIT SUBCUT (20:13)
[2020-06-01 20:51] LABS: Phosphorus 5.1 mg/dL (2.7-4.5)
[2020-06-01] MEDS: Melatonin 3 MG TABLET 6 MG PO (22:24)
[2020-06-01] MEDS: Acetaminophen 325 MG TABLET 650 MG PO (22:44)
[2020-06-02] VITALS (7 sets, daily range): BP systolic 147–184; BP diastolic 66–90; PULSE 56–63; RESP 16–19; TEMP 36.1–37; O2SAT 95–96; BMI 31.6
[2020-06-02] MEDS: 0.9 % Sodium Chloride 1,000 ML 125 ML IVCONT ×3 (00:07→14:47)
[2020-06-02] MEDS: 0.9 % Sodium Chloride Flush 3 ML SYRINGE IVFLUSH ×2 (00:07→09:37)
[2020-06-02 00:39] LABS: Uric Acid 9.5 mg/dL (3.4-7.0)
[2020-06-02] MEDS: hydrOXYzine HCL 25 MG TABLET PO ×2 (05:32→23:48)
[2020-06-02] MEDS: Heparin Sodium,Porcine 5,000 UNIT/ML VIAL 5000 UNIT SUBCUT ×2 (05:34→17:31)
[2020-06-02 06:50] LABS: Anion Gap 13 (12-20); Blood Urea Nitrogen 78 mg/dL (9-16); Calcium 7.6 mg/dL (8.4-10.2); Carbon Dioxide 21 mmol/L (22-29); Chloride 112 mmol/L (96-108); Creatinine Clr Calc Pharmacy 13.3; Estimated Glomerular Filt Rate 10; Glucose Random 60 mg/dL (60-115); Potassium 3.6 mmol/L (3.3-5.1); Sodium 142 mmol/L (135-145)
[2020-06-02 07:12] LABS: Glucose, Whole Blood 53 mg/dL (60-115)
[2020-06-02 07:44] LABS: Glucose, Whole Blood 85 mg/dL (60-115)
[2020-06-02] MEDS: Cholecalciferol (Vitamin D3) 25 MCG TABLET 50 MCG PO (09:36)
[2020-06-02] MEDS: Acetaminophen 325 MG TABLET 650 MG PO (09:36)
[2020-06-02] MEDS: amLODIPine Besylate 10 MG TABLET PO (09:37)
[2020-06-02] MEDS: carvediloL 25 MG TABLET PO ×2 (09:37→20:11)
[2020-06-02] MEDS: Famotidine 20 MG TABLET PO ×2 (09:37→20:12)
[2020-06-02] MEDS: Cyanocobalamin (Vitamin B-12) 1,000 MCG TABLET 1000 MCG PO (09:37)
--- NOTE | 2020-06-02 11:12 | PC.NURSE ---
A+O x 3 with oxygen furnace operator at bedside. Patient continuously yelling, screaming. Pulling on rodriguez catheter while screaming. C/O pain at insertion site of catheter. MD notified. Rodriguez removed at 1130 per MD order. Will obtain UA. Denies any other discomfort at this time, wanting to go home . VSS. afebrile. Sinus on tele.
[2020-06-02 11:32] LABS: Glucose, Whole Blood 58 mg/dL (60-115)
--- NOTE | 2020-06-02 11:44 | MHC.CM.PN ---
Patient's H&H stable at this time. BUN/CR peaked at 6 and is now 78/5.58, per nephro patient is making urine and no need for HD at this time. Patient is on IVF. Discharge plan is home no services, dtr will provide transpport. CM will continue to follow patient for discharge needs.
[2020-06-02 12:46] LABS: Glucose, Whole Blood 108 mg/dL (60-115)
--- NOTE | 2020-06-02 13:38 | HO.PM.IMPN ---
Subjective Subjective Date of Service: 06/02/20 Interval History: Patient seen and examined at bedside Patient did not slept last night denies any complaint Review of Systems Constitutional: weakness , No Chills, +Fatigue, +Malaise Cardiovascular: No Chest Pain, No SOB, No Edema, No Palpitations Respiratory: No Cough, No Wheezing, No Dyspnea Gastrointestinal: No Nausea, No Vomiting, + Diarrhea, No Constipation, + Abdominal pain, No Hematochezia, +black stool Genitourinary: No Dysuria, No Urinary Frequency, No Hematuria, No Flank Pain Musculoskeletal: No joint pain, No Myalgias, No Joint Swelling Skin: No Skin Lesions, No rash Neuro: No Loss of Consciousness, No Dizziness, No Headache Physical Exam Vital Signs: Vital Signs: Last Vital Signs Temp 97.5 F 06/02/20 11:38 Pulse 56 06/02/20 11:38 Resp 18 06/02/20 11:38 BP 159/76 H 06/02/20 11:38 Pulse Ox 95 06/02/20 11:38 Body Mass Index 31.6 Const: General: cooperative, healthy appearing and no acute distress Orientation/consciousness: patient oriented x3 Limitations: no limitations HENMT: Head: Yes normal to inspection Ears: hearing grossly normal bilaterally General nose exam: Normal external nose present Face and sinus: Yes normal facial exam Eyes: General: appearance normal, both eyes and all related structures EOM: EOMs intact bilaterally Neck: Neck: Yes normal visual inspection and Yes no meningeal signs Resp: Effort & Inspection: normal respiratory effort Auscultation: clear to auscultation bilaterally, no rales, no rhonchi and no wheezes Cardio: Rate: regular rate Heart sounds: S1 normal heart sound present and S2 normal heart sound present GI: Inspection: Yes normal to inspection Palpation (GI): Soft to palpation, Tenderness to palpation present (GI) in the epigastrum, in the RLQ and in the RUQ; with no rebound tenderness, no guarding and not rigid : General: Yes no CVA tenderness Back/Spine/Pelvis: Back: no CVA tenderness Skin: Rashes: no rashes Wounds: no wounds Neuro: General: patient oriented x3 and no meningeal signs Gait exam (Neuro): Normal gait present Extrem: General: Yes normal to inspection Objective Data Current Medications Generic Name Dose Route Start Last Admin Trade Name Freq PRN Reason Stop Dose Admin Acetaminophen 650 mg 05/26/20 17:30 06/02/20 09:36 Acetaminophen 325 Mg Tablet PO 650 mg Q6H PRN Administration Pain, Mild (Pain Scale 1-3) Amlodipine Besylate 10 mg 05/27/20 09:00 06/02/20 09:37 Amlodipine Besylate 10 Mg Tablet PO 10 mg DAILY TIARA Administration Protocol Atorvastatin Calcium 80 mg 05/26/20 21:00 06/01/20 20:13 Atorvastatin Calcium 80 Mg Tablet PO 80 mg BEDTIME TIARA Administration Baclofen 10 mg 05/26/20 17:30 05/30/20 21:58 Baclofen 10 Mg Tablet PO 10 mg TID PRN Administration Muscle Spasm Calcium Carbonate 750 mg 05/28/20 19:40 05/28/20 20:00 Calcium Carbonate 750 Mg Tab.Chew PO 750 mg Q6H PRN Administration Heartburn Carvedilol 25 mg 05/26/20 21:00 06/02/20 09:37 Carvedilol 25 Mg Tablet PO 25 mg BID TIARA Administration Protocol Cyanocobalamin 1,000 mcg 05/27/20 09:00 06/02/20 09:37 Cyanocobalamin (Vitamin B-12) 1,000 Mcg Tablet PO 1,000 mcg DAILY TIARA Administration Famotidine 20 mg 05/30/20 21:00 06/02/20 09:37 Famotidine 20 Mg Tablet PO 20 mg BID TIARA Administration Fenofibrate 54 mg 05/26/20 21:00 06/01/20 20:13 Fenofibrate 54 Mg Tablet PO 54 mg BEDTIME TIARA Administration Heparin Sodium (Porcine) 5,000 unit 05/30/20 06:00 06/02/20 05:34 Heparin Sodium,Porcine 5,000 Unit/Ml Vial SUBCUT 5,000 unit Q12H TIARA Administration Hydroxyzine HCl 25 mg 06/01/20 01:26 06/02/20 05:32 Hydroxyzine Hcl 25 Mg Tablet PO 25 mg Q8H PRN Administration Anxiety Sodium Chloride 1,000 mls @ 125 mls/hr 06/01/20 14:45 06/02/20 06:05 Ns IVCONT 125 mls/hr .Q8H TIARA Administration Insulin Glargine 20 unit 06/02/20 21:00 Insulin Glargine,Hum.Rec.Anlog 100 Unit/Ml 10 Ml Vial SUBCUT BEDTIME TIARA Insulin Human Lispro 0 unit 05/26/20 21:00 06/02/20 11:54 Insulin Lispro 100 Unit/Ml 3 Ml Vial SUBCUT Not Given QIDACHS [facility] Protocol Melatonin 6 mg 05/28/20 20:29 06/01/20 22:24 Melatonin 3 Mg Tablet PO 6 mg BEDTIME PRN Administration Insomnia Ondansetron HCl 4 mg 05/26/20 17:30 05/30/20 06:28 Ondansetron Hcl 4 Mg/2 Ml Vial IVPUSH 4 mg Q8H PRN Administration Nausea and Vomiting Pharmacy Consult 1 each 05/26/20 15:02 Consult Rx Perform Med Rec MISCELLANE ONCE PRN Consult order Sodium Chloride 3 ml 05/27/20 00:00 06/02/20 09:37 0.9 % Sodium Chloride Flush 3 Ml Syringe IVFLUSH 3 ml QSHIFT [facility] Administration Vitamin D 50 mcg 05/27/20 09:00 06/02/20 09:36 Cholecalciferol (Vitamin D3) 25 Mcg Tablet PO 50 mcg DAILY TIARA Administration Labs CBC & Chem 7: 05/31/20 05:58 06/02/20 05:30 Microbiology Microbiology Results: Microbiology 05/28/20 08:39 Blood - Venous Blood Culture - Final No growth after 5 days. 05/28/20 08:39 Blood - Venous Blood Culture - Final No growth after 5 days. Assessment and Plan (1) COVID-19: Status: Acute (2) MERLE (acute kidney injury): Status: Acute (3) Diarrhea: Status: Acute Assessment and Plan: 74-year-old male admitted with abdominal pain and dark color stools Acute on chronic kidney injury Creatinine started trending down from 6-5.8 Monitor kidney function Avoid nephrotoxins continue IV fluid Nephrology following making urine Abdominal pain with Dark stool resolved less likely GI bleed Stool for occult blood was negative Seen by GI recommended medical management as H&H stable and stool for occult negative and no signs of GI bleed likely gastritis Continue PPI H&H stable Monitor H&H Stool for occult negative Diabetes mellitus Continue SSI Monitor blood glucose Hypertension Continue amlodipine CAD Hold aspirin Continue statin DVT prophylaxis intial on venodyne as h/h stable and no evidence of gi bleed continue heparin subQ
[2020-06-02 16:24] LABS: Glucose Urine UA 100 MG/DL (NEG); Leukocyte Esterase Urine NEG (NEG); Nitrite Urine NEG (NEG); Specific Gravity - Urine 1.025 (1.005-1.025); Urine Blood 3+ (NEG); Urine Ketones NEG (NEG); Urine Protein 3+ MG/DL (NEG-TRACE)
[2020-06-02 16:25] LABS: Appearance Urine HAZY; Color Urine YELLOW
[2020-06-02 16:26] LABS: Glucose, Whole Blood 63 mg/dL (60-115)
[2020-06-02 16:37] LABS: Bacteria Urine 1+ /LPF; Squamous Epithelial Cell Urine 1+ /LPF; WBC Urine 0 /HPF (0-4)
[2020-06-02 16:38] LABS: Urine Talc Crystals 1+ /LPF
[2020-06-02] MEDS: Dextrose 5 % and 0.9 % NaCl 1,000 ML 100 ML IVCONT (17:30)
[2020-06-02] MEDS: Atorvastatin Calcium 80 MG TABLET PO (20:11)
[2020-06-02] MEDS: Fenofibrate 54 MG TABLET PO (20:12)
[2020-06-02 20:38] LABS: Glucose, Whole Blood 65 mg/dL (60-115)
--- NOTE | 2020-06-02 22:32 | P.PNNP_ITS ---
Subjective Subjective Date of Service: 06/02/20 Interval history: Seen and examined. Events noted Physical Exam Vital Signs: Vital Signs: Last Vital Signs Temp 97.6 F 06/02/20 19:48 Pulse 61 06/02/20 19:48 Resp 19 06/02/20 19:48 BP 184/90 H 06/02/20 20:11 Pulse Ox 95 06/02/20 19:48 Body Mass Index 31.6 Const: General: cooperative, healthy appearing and no acute distress Orientation/consciousness: patient oriented x3 Limitations: no limitations HENMT: Head: Yes normal to inspection Ears: hearing grossly normal bilaterally General nose exam: Normal external nose present Face and sinus: Yes normal facial exam Eyes: General: appearance normal, both eyes and all related structures EOM: EOMs intact bilaterally Neck: Neck: Yes normal visual inspection, Yes no meningeal signs and Yes no JVD Resp: Effort & Inspection: normal respiratory effort Auscultation: clear to auscultation bilaterally, no rales, no rhonchi and no wheezes Cardio: Jugular venous distension: no JVD Rate: regular rate Heart sounds: S1 normal heart sound present and S2 normal heart sound present GI: Inspection: Yes normal to inspection Palpation (GI): Soft to palpation, Tenderness to palpation present (GI) in the epigastrum, in the RLQ and in the RUQ; with no rebound tenderness, no guarding and not rigid : General: Yes no CVA tenderness Back/Spine/Pelvis: Back: no CVA tenderness Skin: General skin exam: dry skin Rashes: no rashes Wounds: no wounds Neuro: General: patient oriented x3 and no meningeal signs Gait exam (Neuro): Normal gait present Motor exam (neuro): No Asterixis during motor activity present Extrem: General: Yes normal to inspection Objective Data Labs CBC & Chem 7: 05/31/20 05:58 06/02/20 05:30 Labs: Laboratory Results - last 24 hr 06/01/20 06/02/20 06/02/20 20:05 05:30 07:05 Sodium 142 Potassium 3.6 Chloride 112 H Carbon Dioxide 21 L Anion Gap 13 BUN 78 H Creatinine 5.58 H* Estim Creat Clear Calc 13.3 Estimated GFR 10 POC Glucose 53 L* Random Glucose 60 D Uric Acid 9.5 H Calcium 7.6 L Urine Color Urine Appearance Urine pH Ur Specific [place] Urine Protein Urine Glucose (UA) Urine Ketones Urine Blood Urine Nitrite Ur Leukocyte Esterase Urine RBC Urine WBC Ur Squamous Epith Cells Talc Crystals Urine Bacteria 06/02/20 06/02/20 06/02/20 07:37 11:25 12:41 Sodium Potassium Chloride Carbon Dioxide Anion Gap BUN Creatinine Estim Creat Clear Calc Estimated GFR POC Glucose 85 58 L* 108 Random Glucose Uric Acid Calcium Urine Color Urine Appearance Urine pH Ur Specific [place] Urine Protein Urine Glucose (UA) Urine Ketones Urine Blood Urine Nitrite Ur Leukocyte Esterase Urine RBC Urine WBC Ur Squamous Epith Cells Talc Crystals Urine Bacteria 06/02/20 06/02/20 06/02/20 15:49 16:00 19:51 Sodium Potassium Chloride Carbon Dioxide Anion Gap BUN Creatinine Estim Creat Clear Calc Estimated GFR POC Glucose 63 65 Random Glucose Uric Acid Calcium Urine Color YELLOW Urine Appearance HAZY Urine pH 6.0 Ur Specific [place] 1.025 Urine Protein 3+ H Urine Glucose (UA) 100 H Urine Ketones NEG Urine Blood 3+ H Urine Nitrite NEG Ur Leukocyte Esterase NEG Urine RBC 1-4 Urine WBC 0 Ur Squamous Epith Cells 1+ Talc Crystals 1+ Urine Bacteria 1+ Microbiology Microbiology Results: Microbiology 05/28/20 08:39 Blood - Venous Blood Culture - Final No growth after 5 days. 05/28/20 08:39 Blood - Venous Blood Culture - Final No growth after 5 days. Assessment & Plan Assessment and plan (1) COVID-19: Status: Acute (2) MERLE (acute kidney injury): Status: Acute (3) Diarrhea: Status: Acute Assessment and Plan: 74-year-old male COVID positive admitted with abdominal pain and dark color stools and MERLE on CKD 1. MERLE: Scr decr today suggest responding to IVF and renal hypoperfusion BUT still need to monitor closley DDx includes IV vol depletion and pre-renal, multifact ATN with ques of COVID assoc tubukar-interstial injury; doubt Obs given rodriguez in place w/u thus far reveals marked Uprot excretion based o Up/Cr ratio but ques accurac y in setting of MERLE 2. GI: ongoing tx/eval 3. CKD 4: bsl Scr 2.0- 3.0 most c/w DN/HTN renal dis No indication for HD at this point but if cont WRF could end up needing HD; will liely NOT need kidney Bx if indeed the Scr cont to decrease REC: cont IVF; track UOP/renal func; no indication for HD at this time and hopefully can avoid; sero as norma will follow with team Time Spent With Patient Time: Total time spent is greater than 50% in coordination of care (as documented) at patient's floor/unit and/or counseling patient:
[2020-06-02] MEDS: Melatonin 3 MG TABLET 6 MG PO (23:48)
[2020-06-03] VITALS (7 sets, daily range): BP systolic 134–176; BP diastolic 72–86; PULSE 61–75; RESP 18–22; TEMP 36–37.1; O2SAT 94–96
[2020-06-03] MEDS: traZODone HCL 25 MG HALFTAB PO (02:37)
[2020-06-03] MEDS: hydrOXYzine HCL 25 MG TABLET PO (02:39)
[2020-06-03] MEDS: Dextrose 5 % and 0.9 % NaCl 1,000 ML 100 ML IVCONT ×3 (03:06→23:11)
[2020-06-03 04:58] LABS: HBS Num1 0.34 mIU/mL (0-7.99); HBc Num1 0.06 S/CO (0.00-0.79); Hepatitis B Core Antibody Nonreactive (Nonreactive); ~Hepatitis B Surface Antibody NONREACTIVE (Nonreactive)
[2020-06-03 05:07] LABS: HBsAGNum1 0.12 S/CO (0.00-0.99); Hepatitis B Surface Antigen Negative (Negative); ~HepC Num1 0.11 S/CO (0.00-0.79); ~Hepatitis C Antibody Nonreactive (Nonreactive)
[2020-06-03] MEDS: Heparin Sodium,Porcine 5,000 UNIT/ML VIAL 5000 UNIT SUBCUT (05:41)
[2020-06-03 06:53] LABS: Anion Gap 11 (12-20); Blood Urea Nitrogen 73 mg/dL (9-16); Calcium 7.5 mg/dL (8.4-10.2); Carbon Dioxide 22 mmol/L (22-29); Chloride 114 mmol/L (96-108); Potassium 3.5 mmol/L (3.3-5.1); Sodium 143 mmol/L (135-145)
[2020-06-03 06:56] LABS: Creatinine Clr Calc Pharmacy 14.8; Estimated Glomerular Filt Rate 11; Glucose Random 49 mg/dL (60-115)
[2020-06-03 07:14] LABS: Glucose, Whole Blood 62 mg/dL (60-115)
[2020-06-03] MEDS: Cholecalciferol (Vitamin D3) 25 MCG TABLET 50 MCG PO (08:57)
[2020-06-03] MEDS: amLODIPine Besylate 10 MG TABLET PO (08:58)
[2020-06-03] MEDS: Famotidine 20 MG TABLET PO (08:58)
[2020-06-03] MEDS: carvediloL 25 MG TABLET PO ×2 (08:58→21:17)
[2020-06-03] MEDS: Cyanocobalamin (Vitamin B-12) 1,000 MCG TABLET 1000 MCG PO (08:58)
[2020-06-03 11:05] LABS: Glucose, Whole Blood 75 mg/dL (60-115)
--- NOTE | 2020-06-03 13:49 | MHC.CLN ---
F/U PO INTAKE 25% DIET RX: 1800DM 2GM NA-APPROPRIATE GLUCERNA BID IN PLACE TO INCREASE KCALS FOLLOWING
[2020-06-03 14:02] LABS: Myeloperoxidase Antibody <1.0 AI; Proteinase 3 PR3 Antibodies <1.0 AI
--- NOTE | 2020-06-03 14:14 | PC.NURSE ---
pt has been confused/disoriented and yelling that he wants to go home. He called his daughter and told her he was coming home. He is difficult to reorient with inerpreter at bedside and continues to report he is going home. He has poor PO intake today, consumed less that 25% breakfast and lunch. Pt in recliner. Will continue to monitor
[2020-06-03 15:59] LABS: Glucose, Whole Blood 49 mg/dL (60-115)
--- NOTE | 2020-06-03 16:53 | HO.PM.IMPN ---
Subjective Subjective Date of Service: 06/04/20 Interval History: Sitting on chair denies abdominal pain, vomiting, denies shortness of breath, noted to have low blood sugars not on scheduled hypoglycemic agents. 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 Neck supple no JVD. CVS regular rate rhythm, Respiratory lungs clear to auscultation, no respiratory distress, no wheeze, no rhonchi. Gastrointestinal abdomen soft, nontender, bowel sounds audible, no guarding , no rigidity. Lower Extremities no clubbing cyanosis or edema, puffiness both upper hands. Neuro nonfocal , speech clear. Skin no rash Objective Data Current Medications Generic Name Dose Route Start Last Admin Trade Name Freq PRN Reason Stop Dose Admin Acetaminophen 650 mg 05/26/20 17:30 06/02/20 09:36 Acetaminophen 325 Mg Tablet PO 650 mg Q6H PRN Administration Pain, Mild (Pain Scale 1-3) Amlodipine Besylate 10 mg 05/27/20 09:00 06/03/20 08:58 Amlodipine Besylate 10 Mg Tablet PO 10 mg DAILY TIARA Administration Protocol Atorvastatin Calcium 80 mg 05/26/20 21:00 06/02/20 20:11 Atorvastatin Calcium 80 Mg Tablet PO 80 mg BEDTIME TIARA Administration Baclofen 10 mg 05/26/20 17:30 05/30/20 21:58 Baclofen 10 Mg Tablet PO 10 mg TID PRN Administration Muscle Spasm Calcium Carbonate 750 mg 05/28/20 19:40 05/28/20 20:00 Calcium Carbonate 750 Mg Tab.Chew PO 750 mg Q6H PRN Administration Heartburn Carvedilol 25 mg 05/26/20 21:00 06/03/20 08:58 Carvedilol 25 Mg Tablet PO 25 mg BID TIARA Administration Protocol Cyanocobalamin 1,000 mcg 05/27/20 09:00 06/03/20 08:58 Cyanocobalamin (Vitamin B-12) 1,000 Mcg Tablet PO 1,000 mcg DAILY TIARA Administration Famotidine 20 mg 05/30/20 21:00 06/03/20 08:58 Famotidine 20 Mg Tablet PO 20 mg BID TIARA Administration Fenofibrate 54 mg 05/26/20 21:00 06/02/20 20:12 Fenofibrate 54 Mg Tablet PO 54 mg BEDTIME TIARA Administration Heparin Sodium (Porcine) 5,000 unit 05/30/20 06:00 06/03/20 05:41 Heparin Sodium,Porcine 5,000 Unit/Ml Vial SUBCUT 5,000 unit Q12H TIARA Administration Hydroxyzine HCl 25 mg 06/01/20 01:26 06/02/20 23:48 Hydroxyzine Hcl 25 Mg Tablet PO 25 mg Q8H PRN Administration Anxiety Dextrose/Sodium Chloride 1,000 mls @ 100 mls/hr 06/02/20 16:45 06/03/20 13:11 D5ns IVCONT 100 mls/hr .Q10H TIARA Administration Insulin Human Lispro 0 unit 05/26/20 21:00 06/03/20 11:32 Insulin Lispro 100 Unit/Ml 3 Ml Vial SUBCUT Not Given QIDACHS [facility] Protocol Melatonin 6 mg 05/28/20 20:29 06/02/20 23:48 Melatonin 3 Mg Tablet PO 6 mg BEDTIME PRN Administration Insomnia Ondansetron HCl 4 mg 05/26/20 17:30 05/30/20 06:28 Ondansetron Hcl 4 Mg/2 Ml Vial IVPUSH 4 mg Q8H PRN Administration Nausea and Vomiting Pharmacy Consult 1 each 05/26/20 15:02 Consult Rx Perform Med Rec MISCELLANE ONCE PRN Consult order Sodium Chloride 3 ml 05/27/20 00:00 06/03/20 07:32 0.9 % Sodium Chloride Flush 3 Ml Syringe IVFLUSH Not Given QSHIFT [facility] Vitamin D 50 mcg 05/27/20 09:00 06/03/20 08:57 Cholecalciferol (Vitamin D3) 25 Mcg Tablet PO 50 mcg DAILY TIARA Administration Labs CBC & Chem 7: 05/31/20 05:58 06/04/20 05:56 Microbiology Microbiology Results: Microbiology 05/28/20 08:39 Blood - Venous Blood Culture - Final No growth after 5 days. 05/28/20 08:39 Blood - Venous Blood Culture - Final No growth after 5 days. Assessment and Plan (1) MERLE (acute kidney injury): Status: Acute (2) Diarrhea: Status: Acute (3) COVID-19: Status: Acute Assessment and Plan: 74-year-old male COVID positive admitted with abdominal pain and dark color stools and MERLE on CKD 1. MERLE on chronic kidney disease likely pre renal, other possibilities include multifactorial ATN and question tubular interstitial injury with recent diagnosis of covid, creatinine gradually trending down, will continue IV fluid and monitor BMP closely 2. Epigastric pain associated with nausea and dark-colored stool,no GI bleed noted likely patient has NSAID induced gastritis but since patient hematocrit is stable and he is tolerating diet no further intervention is planned by Dr. Edward he recommend discharging patient on proton pump inhibitor twice daily and outpatient follow-up with Gastroenterology for possible endoscopy , will DC [facility] place patient on Prilosec. 3. Hypoglycemia with history of Diabetes mellitus blood sugars running low, Was on insulin at home, will hold scheduled insulin, continue IV fluid to D5W, question related to decreased by mouth intake follow blood sugar closely check TSH. 4. Hypertension blood pressure noted to be elevated on home dose of Norvasc 10 mg and Coreg 25 mg b.i.d. Lasix and losartan are on hold, will follow blood pressure closely and adjust medications if BP remains elevated. 5. CAD no complain of chest pain, continue statins and beta blockers 6. COVID pneumonia, patient oxygenation is stable 94% on room air DVT prophylaxis continue heparin subQ
[2020-06-03] MEDS: 0.9 % Sodium Chloride Flush 3 ML SYRINGE IVFLUSH ×2 (16:59→21:26)
--- NOTE | 2020-06-03 20:03 | PM.PNNEP ---
Subjective Subjective Date of Service: 06/03/20 Interval history: Seen and examoned. Events noted Physical Exam Vital Signs: Vital Signs: Last Vital Signs Temp 98.1 F 06/03/20 19:15 Pulse 72 06/03/20 19:15 Resp 22 H 06/03/20 19:15 BP 166/81 H 06/03/20 19:15 Pulse Ox 95 06/03/20 19:15 Body Mass Index 31.6 Const: General: cooperative, healthy appearing and no acute distress Orientation/consciousness: patient oriented x3 Limitations: no limitations HENMT: Head: Yes normal to inspection Ears: hearing grossly normal bilaterally General nose exam: Normal external nose present Face and sinus: Yes normal facial exam Eyes: General: appearance normal, both eyes and all related structures EOM: EOMs intact bilaterally Neck: Neck: Yes normal visual inspection, Yes no meningeal signs and Yes no JVD Resp: Effort & Inspection: normal respiratory effort Auscultation: clear to auscultation bilaterally, no rales, no rhonchi and no wheezes Cardio: Jugular venous distension: no JVD Rate: regular rate Heart sounds: S1 normal heart sound present and S2 normal heart sound present GI: Inspection: Yes normal to inspection Palpation (GI): Soft to palpation, Tenderness to palpation present (GI) in the epigastrum, in the RLQ and in the RUQ; with no rebound tenderness, no guarding and not rigid : General: Yes no CVA tenderness Back/Spine/Pelvis: Back: no CVA tenderness Skin: General skin exam: dry skin Rashes: no rashes Wounds: no wounds Neuro: General: patient oriented x3 and no meningeal signs Gait exam (Neuro): Normal gait present Motor exam (neuro): No Asterixis during motor activity present Extrem: General: Yes normal to inspection Objective Data Labs CBC & Chem 7: 05/31/20 05:58 06/03/20 05:42 Labs: Laboratory Results - last 24 hr 06/01/20 06/01/20 06/02/20 20:05 20:05 19:51 Sodium Potassium Chloride Carbon Dioxide Anion Gap BUN Creatinine Estim Creat Clear Calc Estimated GFR POC Glucose 65 Random Glucose Calcium Proteinase 3 (PR3) Ab <1.0 Myeloperoxidase Ab <1.0 Hep Bs Antigen Negative Hep Bs Antibody NONREACTIVE Hep B Core Total Ab Nonreactive Hepatitis C Ab (EIA) Nonreactive 06/03/20 06/03/20 06/03/20 05:42 07:06 11:00 Sodium 143 Potassium 3.5 Chloride 114 H Carbon Dioxide 22 Anion Gap 11 L BUN 73 H Creatinine 5.01 H* Estim Creat Clear Calc 14.8 Estimated GFR 11 POC Glucose 62 75 Random Glucose 49 L* Calcium 7.5 L Proteinase 3 (PR3) Ab Myeloperoxidase Ab Hep Bs Antigen Hep Bs Antibody Hep B Core Total Ab Hepatitis C Ab (EIA) 06/03/20 15:52 Sodium Potassium Chloride Carbon Dioxide Anion Gap BUN Creatinine Estim Creat Clear Calc Estimated GFR POC Glucose 49 L* Random Glucose Calcium Proteinase 3 (PR3) Ab Myeloperoxidase Ab Hep Bs Antigen Hep Bs Antibody Hep B Core Total Ab Hepatitis C Ab (EIA) Microbiology Microbiology Results: Microbiology 05/28/20 08:39 Blood - Venous Blood Culture - Final No growth after 5 days. 05/28/20 08:39 Blood - Venous Blood Culture - Final No growth after 5 days. Assessment & Plan Assessment and plan (1) COVID-19: Status: Acute (2) MERLE (acute kidney injury): Status: Acute (3) Diarrhea: Status: Acute Assessment and Plan: 74-year-old male COVID positive admitted with abdominal pain and dark color stools and MERLE on CKD 1. MERLE: cont decr Scr suggest responding to IVF and renal hypoperfusion BUT still need to monitor closley DDx includes IV vol depletion and pre-renal, multifact ATN with ques of COVID assoc tubukar-interstial injury; doubt Obs given rodriguez in place w/u thus far reveals marked Uprot excretion based o Up/Cr ratio but ques accuracy in setting of MERLE 2. GI: ongoing tx/eval 3. CKD 4: bsl Scr 2.0- 3.0 most c/w DN/HTN renal dis No indication for HD at this point but if cont WRF could end up needing HD; will liely NOT need kidney Bx if indeed the Scr cont to decrease REC: cont IVF; track UOP/renal func; no indication for HD at this time and hopefully can avoid; sero as norma will follow with team Time Spent With Patient Time: Total time spent is greater than 50% in coordination of care (as documented) at patient's floor/unit and/or counseling patient:
[2020-06-03 20:12] LABS: Glucose, Whole Blood 71 mg/dL (60-115)
[2020-06-03 20:47] LABS: Glucose, Whole Blood 95 mg/dL (60-115)
[2020-06-03] MEDS: Melatonin 3 MG TABLET 6 MG PO (21:14)
[2020-06-04] VITALS (8 sets, daily range): BP systolic 137–174; BP diastolic 69–89; PULSE 66–80; RESP 14–20; TEMP 36.2–37.2; O2SAT 94–98
[2020-06-04] MEDS: Heparin Sodium,Porcine 5,000 UNIT/ML VIAL 5000 UNIT SUBCUT ×2 (05:20→17:56)
[2020-06-04 07:42] LABS: Anion Gap 11 (12-20); Blood Urea Nitrogen 66 mg/dL (9-16); Calcium 7.4 mg/dL (8.4-10.2); Carbon Dioxide 21 mmol/L (22-29); Chloride 116 mmol/L (96-108); Creatinine Clr Calc Pharmacy 16.4; Estimated Glomerular Filt Rate 13; Glucose Random 55 mg/dL (60-115); Potassium 3.5 mmol/L (3.3-5.1); Sodium 144 mmol/L (135-145)
[2020-06-04 07:52] LABS: Glucose, Whole Blood 76 mg/dL (60-115)
[2020-06-04] MEDS: Dextrose 5 % and 0.9 % NaCl 1,000 ML 100 ML IVCONT ×2 (08:31→16:33)
[2020-06-04] MEDS: Cholecalciferol (Vitamin D3) 25 MCG TABLET 50 MCG PO (08:36)
[2020-06-04] MEDS: Cyanocobalamin (Vitamin B-12) 1,000 MCG TABLET 1000 MCG PO (08:37)
[2020-06-04] MEDS: carvediloL 25 MG TABLET PO ×2 (08:37→19:49)
[2020-06-04] MEDS: amLODIPine Besylate 10 MG TABLET PO (08:37)
[2020-06-04] MEDS: Famotidine 20 MG TABLET PO ×2 (08:37→19:45)
[2020-06-04 11:06] LABS: Thyroid Stimulating Hormone 1.07 uIU/mL (0.32-4.0)
--- NOTE | 2020-06-04 11:17 | MHC.CM.PN ---
Per ROUNDS discussion, Patient is improving slowly, but not yet medically cleared for dc (Covid, Confusion, Poor PO).Home is the goal for dc and CM will follow for possible need to adjust the dc plan.
[2020-06-04 11:32] LABS: Glucose, Whole Blood 100 mg/dL (60-115)
[2020-06-04 16:36] LABS: Glucose, Whole Blood 87 mg/dL (60-115)
--- NOTE | 2020-06-04 17:35 | P.PNIM_ITS ---
Subjective Subjective Date of Service: 06/04/20 Interval History: Patient feels hungry asking for soup history obtained through patient's daughter on phone, patient denies any nausea vomiting no pain no other acute issues overnight, blood sugars continue to be low. 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 Neck supple no JVD. CVS regular rate rhythm, Respiratory lungs clear to auscultation, no respiratory distress, no wheeze, no rhonchi. Gastrointestinal abdomen soft, nontender, bowel sounds audible, no guarding , no rigidity. Lower Extremities no clubbing cyanosis or edema, puffiness both upper hands. Neuro nonfocal , speech clear. Skin no rash Objective Data Current Medications Generic Name Dose Route Start Last Admin Trade Name Freq PRN Reason Stop Dose Admin Acetaminophen 650 mg 05/26/20 17:30 06/02/20 09:36 Acetaminophen 325 Mg Tablet PO 650 mg Q6H PRN Administration Pain, Mild (Pain Scale 1-3) Amlodipine Besylate 10 mg 05/27/20 09:00 06/04/20 08:37 Amlodipine Besylate 10 Mg Tablet PO 10 mg DAILY [facility] Administration Protocol Atorvastatin Calcium 80 mg 05/26/20 21:00 06/03/20 21:33 Atorvastatin Calcium 80 Mg Tablet PO Not Given BEDTIME [facility] Baclofen 10 mg 05/26/20 17:30 05/30/20 21:58 Baclofen 10 Mg Tablet PO 10 mg TID PRN Administration Muscle Spasm Calcium Carbonate 750 mg 05/28/20 19:40 05/28/20 20:00 Calcium Carbonate 750 Mg Tab.Chew PO 750 mg Q6H PRN Administration Heartburn Carvedilol 25 mg 05/26/20 21:00 06/04/20 08:37 Carvedilol 25 Mg Tablet PO 25 mg BID [facility] Administration Protocol Cyanocobalamin 1,000 mcg 05/27/20 09:00 06/04/20 08:37 Cyanocobalamin (Vitamin B-12) 1,000 Mcg Tablet PO 1,000 mcg DAILY [facility] Administration Famotidine 20 mg 05/30/20 21:00 06/04/20 08:37 Famotidine 20 Mg Tablet PO 20 mg BID [facility] Administration Fenofibrate 54 mg 05/26/20 21:00 06/03/20 21:33 Fenofibrate 54 Mg Tablet PO Not Given BEDTIME [facility] Heparin Sodium (Porcine) 5,000 unit 05/30/20 06:00 06/04/20 05:20 Heparin Sodium,Porcine 5,000 Unit/Ml Vial SUBCUT 5,000 unit Q12H [facility] Administration Hydroxyzine HCl 25 mg 06/01/20 01:26 06/02/20 23:48 Hydroxyzine Hcl 25 Mg Tablet PO 25 mg Q8H PRN Administration Anxiety Dextrose/Lactated Ringer's 1,000 mls @ 100 mls/hr 06/04/20 17:30 D5lr IVCONT .Q10H [facility] Insulin Human Lispro 0 unit 05/26/20 21:00 06/04/20 16:32 Insulin Lispro 100 Unit/Ml 3 Ml Vial SUBCUT Not Given QIDACHS [facility] Protocol Melatonin 6 mg 05/28/20 20:29 06/03/20 21:14 Melatonin 3 Mg Tablet PO 6 mg BEDTIME PRN Administration Insomnia Ondansetron HCl 4 mg 05/26/20 17:30 05/30/20 06:28 Ondansetron Hcl 4 Mg/2 Ml Vial IVPUSH 4 mg Q8H PRN Administration Nausea and Vomiting Pharmacy Consult 1 each 05/26/20 15:02 Consult Rx Perform Med Rec MISCELLANE ONCE PRN Consult order Sodium Chloride 3 ml 05/27/20 00:00 06/04/20 15:57 0.9 % Sodium Chloride Flush 3 Ml Syringe IVFLUSH Not Given QSHIFT [facility] Vitamin D 50 mcg 05/27/20 09:00 06/04/20 08:36 Cholecalciferol (Vitamin D3) 25 Mcg Tablet PO 50 mcg DAILY [facility] Administration Labs CBC & Chem 7: 05/31/20 05:58 06/04/20 05:56 Microbiology Microbiology Results: Microbiology 05/28/20 08:39 Blood - Venous Blood Culture - Final No growth after 5 days. 05/28/20 08:39 Blood - Venous Blood Culture - Final No growth after 5 days. Assessment and Plan (1) MERLE (acute kidney injury): Status: Acute (2) Diarrhea: Status: Acute (3) COVID-19: Status: Acute (4) Hypoglycemia: Status: Acute Assessment and Plan: 74-year-old male COVID positive admitted with abdominal pain and dark color stools and MERLE on CKD 1. MERLE on chronic kidney disease likely pre renal, other possibilities include multifactorial ATN and question tubular interstitial injury with recent diagnosis of covid, creatinine gradually trending down, consistent with dehydration will continue IV fluid and change to LR due to elevated chloride and monitor BMP closely 2. Epigastric pain associated with nausea and dark-colored stool,no GI bleed noted likely patient has NSAID induced gastritis but since patient hematocrit is stable and he is tolerating diet no further intervention is planned by Dr. Edward he recommend discharging patient on proton pump inhibitor twice daily and outpatient follow-up with Gastroenterology for possible endoscopy , continue Prilosec And follow CBC patient nausea has resolved no further dark-colored stools noted. 3. Hypoglycemia with history of Diabetes mellitus blood sugars running low, since patient has poor by mouth intake, TSH is within normal range, continue to hold insulin, encourage by mouth intake and continue IV fluid with D5W 4. Hypertension blood pressure noted to be elevated this morning currently blood pressure is stable on home dose of Norvasc 10 mg and Coreg 25 mg b.i.d., Lasix and losartan are on hold, Blood pressure noted to be high will add hydralazine 25 mg b.i.d. 5. CAD no complain of chest pain, continue statins and beta blockers 6. COVID pneumonia, patient oxygenation is stable DVT prophylaxis continue heparin subQ
[2020-06-04] MEDS: Dextrose 5 % and Lactated Ring 1,000 ML 100 ML IVCONT (17:38)
--- NOTE | 2020-06-04 18:15 | PM.PNNEP ---
Subjective Subjective Date of Service: 06/04/20 Interval history: Seen and examined. Events noted Physical Exam Vital Signs: Vital Signs: Last Vital Signs Temp 99.0 F 06/04/20 15:47 Pulse 73 06/04/20 15:47 Resp 20 06/04/20 15:47 BP 148/89 H 06/04/20 15:47 Pulse Ox 98 06/04/20 15:47 Body Mass Index 31.6 Const: General: cooperative, healthy appearing and no acute distress Orientation/consciousness: patient oriented x3 Limitations: no limitations HENMT: Head: Yes normal to inspection Ears: hearing grossly normal bilaterally General nose exam: Normal external nose present Face and sinus: Yes normal facial exam Eyes: General: appearance normal, both eyes and all related structures EOM: EOMs intact bilaterally Neck: Neck: Yes normal visual inspection, Yes no meningeal signs and Yes no JVD Resp: Effort & Inspection: normal respiratory effort Auscultation: clear to auscultation bilaterally, no rales, no rhonchi and no wheezes Cardio: Jugular venous distension: no JVD Rate: regular rate Heart sounds: S1 normal heart sound present and S2 normal heart sound present GI: Inspection: Yes normal to inspection Palpation (GI): Soft to palpation, Tenderness to palpation present (GI) in the epigastrum, in the RLQ and in the RUQ; with no rebound tenderness, no guarding and not rigid : General: Yes no CVA tenderness Back/Spine/Pelvis: Back: no CVA tenderness Skin: General skin exam: dry skin Rashes: no rashes Wounds: no wounds Neuro: General: patient oriented x3 and no meningeal signs Gait exam (Neuro): Normal gait present Motor exam (neuro): No Asterixis during motor activity present Extrem: General: Yes normal to inspection Objective Data Labs CBC & Chem 7: 05/31/20 05:58 06/04/20 05:56 Labs: Laboratory Results - last 24 hr 06/03/20 06/03/20 06/04/20 19:59 20:44 05:56 Sodium 144 Potassium 3.5 Chloride 116 H Carbon Dioxide 21 L Anion Gap 11 L BUN 66 H Creatinine 4.52 H* Estim Creat Clear Calc 16.4 Estimated GFR 13 POC Glucose 71 95 Random Glucose 55 L* Calcium 7.4 L TSH 1.07 06/04/20 06/04/20 06/04/20 07:29 11:17 16:31 Sodium Potassium Chloride Carbon Dioxide Anion Gap BUN Creatinine Estim Creat Clear Calc Estimated GFR POC Glucose 76 100 87 Random Glucose Calcium TSH Microbiology Microbiology Results: Microbiology 05/28/20 08:39 Blood - Venous Blood Culture - Final No growth after 5 days. 05/28/20 08:39 Blood - Venous Blood Culture - Final No growth after 5 days. Assessment & Plan Assessment and plan (1) COVID-19: Status: Acute (2) MERLE (acute kidney injury): Status: Acute (3) Diarrhea: Status: Acute Assessment and Plan: 74-year-old male COVID positive admitted with abdominal pain and dark color stools and MERLE on CKD 1. MERLE: cont decr Scr is a good sign; suggest responding to IVF and renal hypoperfusion BUT still need to monitor closley DDx includes IV vol depletion and pre-renal, multifact ATN with ques of COVID assoc tubukar-interstial injury; doubt Obs given rodriguez in place w/u thus far reveals marked Uprot excretion based o Up/Cr ratio but ques accuracy in setting of MERLE 2. GI: ongoing tx/eval 3. CKD 4: bsl Scr 2.0- 3.0 most c/w DN/HTN renal dis No indication for HD at this point but if cont WRF could end up needing HD; will liely NOT need kidney Bx if indeed the Scr cont to decrease REC: cont IVF; track UOP/renal func; no indication for HD at this time and hopefully can avoid; sero as norma will follow with team Time Spent With Patient Time: Total time spent is greater than 50% in coordination of care (as documented) at patient's floor/unit and/or counseling patient:
[2020-06-04] MEDS: Atorvastatin Calcium 80 MG TABLET PO (19:45)
[2020-06-04] MEDS: Fenofibrate 54 MG TABLET PO (19:45)
[2020-06-04] MEDS: Melatonin 3 MG TABLET 6 MG PO (19:46)
[2020-06-04] MEDS: hydrOXYzine HCL 25 MG TABLET PO (19:46)
[2020-06-04 20:58] LABS: Glucose, Whole Blood 97 mg/dL (60-115)
[2020-06-04 22:22] LABS: Anti Nuclear Antibody Screen POSITIVE (NEGATIVE)
[2020-06-05] VITALS: BP 160/65; PULSE 68; RESP 18; TEMP 36.6; O2SAT 95
[2020-06-05 04:00] VITALS: BP 149/69; PULSE 72; RESP 16; TEMP 36.3; O2SAT 94
[2020-06-05] MEDS: Heparin Sodium,Porcine 5,000 UNIT/ML VIAL 5000 UNIT SUBCUT ×2 (06:42→18:34)
[2020-06-05 06:58] LABS: MANUAL DIFF FLAG NO
[2020-06-05 07:03] LABS: Eosinophils Absolute Auto 0.1 X10*3/uL (0.0-0.4); Eosinophils Percent Auto 1.8 % (0-4); Hematocrit 29.6 % (42-52); Hemoglobin 10.1 g/dl (14.0-18.0); Imm Gran Abs Auto 0.04 X10*3/uL (0.00-0.03); Imm Gran Pct Auto 0.6 % (0.0-0.4); Lymphocytes Absolute Auto 0.7 X10*3/uL (1.2-4.9); Lymphocytes Percent Auto 10.8 % (20-40); Mean Corpuscular HGB Conc 34.1 g/dl (31.0-36.0); Mean Corpuscular Hemoglobin 30.2 pg (27.0-33.0); Mean Corpuscular Volume 88.6 fL (80-98); Mean Platelet Volume 9.9 fL (9.4-12.4); Monocytes Absolute Auto 0.4 X10*3/uL (0.1-1.2); Monocytes Percent Auto 5.5 % (2-11); Neutrophils Absolute Auto 5.4 X10*3/uL (2.0-8.3); Neutrophils Percent Auto 81.3 % (45-73); Platelet Count 369 X10*3/uL (160-400); Red Blood Count 3.34 X10*6/uL (4.60-5.80); Red Cell Distribution Width 13.2 % (11.0-16.0); White Blood Count 6.7 X10*3/uL (4.8-10.8)
[2020-06-05 07:59] LABS: Glucose, Whole Blood 70 mg/dL (60-115)
[2020-06-05 08:00] VITALS: BP 175/71; PULSE 69; RESP 20; TEMP 36.6; O2SAT 94
[2020-06-05 08:12] LABS: Anion Gap 12 (12-20); Blood Urea Nitrogen 61 mg/dL (9-16); Calcium 7.6 mg/dL (8.4-10.2); Carbon Dioxide 21 mmol/L (22-29); Chloride 116 mmol/L (96-108); Estimated Glomerular Filt Rate 14; Glucose Random 68 mg/dL (60-115); Potassium 3.5 mmol/L (3.3-5.1); Sodium 145 mmol/L (135-145)
[2020-06-05] MEDS: Dextrose 5 % and Lactated Ring 1,000 ML 100 ML IVCONT ×2 (09:04→20:36)
[2020-06-05] MEDS: amLODIPine Besylate 10 MG TABLET PO (09:04)
[2020-06-05] MEDS: Cholecalciferol (Vitamin D3) 25 MCG TABLET 50 MCG PO (09:04)
[2020-06-05] MEDS: Cyanocobalamin (Vitamin B-12) 1,000 MCG TABLET 1000 MCG PO (09:04)
[2020-06-05] MEDS: 0.9 % Sodium Chloride Flush 3 ML SYRINGE IVFLUSH ×2 (09:04→16:02)
[2020-06-05] MEDS: carvediloL 25 MG TABLET PO ×2 (09:04→20:33)
[2020-06-05] MEDS: Famotidine 20 MG TABLET PO ×2 (09:04→20:33)
[2020-06-05 11:26] LABS: Glucose, Whole Blood 93 mg/dL (60-115)
--- NOTE | 2020-06-05 11:29 | HO.PM.IMPN ---
Subjective Subjective Date of Service: 06/05/20 Interval History: Patient answering questions appropriately but appears more tired and sleepy, no other acute issues overnight, blood pressure elevated this morning. Feeling thirsty asking for drink and wants to go home.History obtained via ballet soloist. 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 GI no nausea, no vomiting, no diarrhea Physical Exam Vital Signs: Vital Signs: Last Vital Signs Temp 97.9 F 06/05/20 08:00 Pulse 69 06/05/20 08:00 Resp 20 06/05/20 08:00 BP 175/71 H 06/05/20 08:00 Pulse Ox 94 06/05/20 08:00 Body Mass Index 31.6 General no acute distress. Neck supple no JVD. CVS regular rate rhythm, Respiratory lungs clear to auscultation, no respiratory distress, no wheeze, no rhonchi. Gastrointestinal abdomen soft, non tender, bowel sounds audible, no guarding , no rigidity. Lower Extremities no clubbing, cyanosis or edema, puffiness both upper hands no worsening since yesterday. Neuro nonfocal , speech clear. Skin no rash Objective Data Current Medications Generic Name Dose Route Start Last Admin Trade Name Freq PRN Reason Stop Dose Admin Acetaminophen 650 mg 05/26/20 17:30 06/02/20 09:36 Acetaminophen 325 Mg Tablet PO 650 mg Q6H PRN Administration Pain, Mild (Pain Scale 1-3) Amlodipine Besylate 10 mg 05/27/20 09:00 06/05/20 09:04 Amlodipine Besylate 10 Mg Tablet PO 10 mg DAILY TIARA Administration Protocol Atorvastatin Calcium 80 mg 05/26/20 21:00 06/04/20 19:45 Atorvastatin Calcium 80 Mg Tablet PO 80 mg BEDTIME TIARA Administration Baclofen 10 mg 05/26/20 17:30 05/30/20 21:58 Baclofen 10 Mg Tablet PO 10 mg TID PRN Administration Muscle Spasm Calcium Carbonate 750 mg 05/28/20 19:40 05/28/20 20:00 Calcium Carbonate 750 Mg Tab.Chew PO 750 mg Q6H PRN Administration Heartburn Carvedilol 25 mg 05/26/20 21:00 06/05/20 09:04 Carvedilol 25 Mg Tablet PO 25 mg BID TIARA Administration Protocol Cyanocobalamin 1,000 mcg 05/27/20 09:00 06/05/20 09:04 Cyanocobalamin (Vitamin B-12) 1,000 Mcg Tablet PO 1,000 mcg DAILY TIARA Administration Famotidine 20 mg 05/30/20 21:00 06/05/20 09:04 Famotidine 20 Mg Tablet PO 20 mg BID TIARA Administration Fenofibrate 54 mg 05/26/20 21:00 06/04/20 19:45 Fenofibrate 54 Mg Tablet PO 54 mg BEDTIME TIARA Administration Heparin Sodium (Porcine) 5,000 unit 05/30/20 06:00 06/05/20 06:42 Heparin Sodium,Porcine 5,000 Unit/Ml Vial SUBCUT 5,000 unit Q12H TIARA Administration Hydroxyzine HCl 25 mg 06/01/20 01:26 06/04/20 19:46 Hydroxyzine Hcl 25 Mg Tablet PO 25 mg Q8H PRN Administration Anxiety Dextrose/Lactated Ringer's 1,000 mls @ 100 mls/hr 06/04/20 17:30 06/05/20 09:04 D5lr IVCONT 100 mls/hr .Q10H TIARA Administration Insulin Human Lispro 0 unit 05/26/20 21:00 06/05/20 09:04 Insulin Lispro 100 Unit/Ml 3 Ml Vial SUBCUT Not Given QIDACHS [facility] Protocol Melatonin 6 mg 05/28/20 20:29 06/04/20 19:46 Melatonin 3 Mg Tablet PO 6 mg BEDTIME PRN Administration Insomnia Ondansetron HCl 4 mg 05/26/20 17:30 05/30/20 06:28 Ondansetron Hcl 4 Mg/2 Ml Vial IVPUSH 4 mg Q8H PRN Administration Nausea and Vomiting Pharmacy Consult 1 each 05/26/20 15:02 Consult Rx Perform Med Rec MISCELLANE ONCE PRN Consult order Sodium Chloride 3 ml 05/27/20 00:00 06/05/20 09:04 0.9 % Sodium Chloride Flush 3 Ml Syringe IVFLUSH 3 ml QSHIFT [facility] Administration Vitamin D 50 mcg 05/27/20 09:00 06/05/20 09:04 Cholecalciferol (Vitamin D3) 25 Mcg Tablet PO 50 mcg DAILY TIARA Administration Labs CBC & Chem 7: 06/05/20 06:08 06/05/20 06:08 Microbiology Microbiology Results: Microbiology 05/28/20 08:39 Blood - Venous Blood Culture - Final No growth after 5 days. 05/28/20 08:39 Blood - Venous Blood Culture - Final No growth after 5 days. Assessment and Plan (1) MERLE (acute kidney injury): Status: Acute (2) Diarrhea: Status: Acute (3) COVID-19: Status: Acute (4) Hypoglycemia: Status: Acute Assessment and Plan: 74-year-old male COVID positive admitted with abdominal pain and dark color stools and MERLE on CKD 1. MERLE on chronic kidney disease stage IV baseline creatinine 2-3, acute injury likely pre renal, since responding to IV fluids / other possibilities include multifactorial ATN and question tubular interstitial injury with recent diagnosis of covid,creatinine gradually trending down, will continue IV fluid LR and monitor BMP closely, avoid nephrotoxic, no NSAIDs. 2. Epigastric pain associated with nausea and dark-colored stool,no GI bleed noted likely patient has NSAID induced gastritis but since patient hematocrit is stable and he is tolerating diet no further intervention is planned by Dr. Edward he recommend discharging patient on proton pump inhibitor twice daily and outpatient follow-up with Gastroenterology for possible endoscopy , continue Prilosec And follow CBC patient nausea has resolved no further dark-colored stools noted. 3. Hypoglycemia with history of Diabetes mellitus blood sugars now improved since patient tolerating diet, TSH is within normal range, continue to hold insulin, encourage by mouth intake and continue IV fluid with D5W 4. Hypertension blood pressure noted to be elevated this morning on home dose of Norvasc 10 mg and Coreg 25 mg b.i.d., Lasix and losartan are on hold, Will place patient on hydralazine 25 mg b.i.d. 5. CAD no complain of chest pain, continue statins and beta blockers 6. COVID pneumonia, patient oxygenation is stable DVT prophylaxis continue heparin subQ
[2020-06-05 12:00] VITALS: BP 134/75; PULSE 70; RESP 18; TEMP 36.6; O2SAT 95
[2020-06-05] MEDS: hydrALAZINE HCl 25 MG TABLET PO ×2 (12:32→20:33)
[2020-06-05 15:10] VITALS: BP 141/63; PULSE 74; RESP 18; TEMP 36.4; O2SAT 95
[2020-06-05 16:14] LABS: Glucose, Whole Blood 114 mg/dL (60-115)
--- NOTE | 2020-06-05 16:22 | P.PNNP_ITS ---
Subjective Subjective Date of Service: 06/05/20 Interval history: Seeen and examined,. Events noted Physical Exam Vital Signs: Vital Signs: Last Vital Signs Temp 97.6 F 06/05/20 15:10 Pulse 74 06/05/20 15:10 Resp 18 06/05/20 15:10 BP 141/63 H 06/05/20 15:10 Pulse Ox 95 06/05/20 15:10 Body Mass Index 31.6 Const: General: cooperative, healthy appearing and no acute distress Orientation/consciousness: patient oriented x3 Limitations: no limitations HENMT: Head: Yes normal to inspection Ears: hearing grossly normal bilaterally General nose exam: Normal external nose present Face and sinus: Yes normal facial exam Eyes: General: appearance normal, both eyes and all related structures EOM: EOMs intact bilaterally Neck: Neck: Yes normal visual inspection, Yes no meningeal signs and Yes no JVD Resp: Effort & Inspection: normal respiratory effort Auscultation: clear to auscultation bilaterally, no rales, no rhonchi and no wheezes Cardio: Jugular venous distension: no JVD Rate: regular rate Heart sounds: S1 normal heart sound present and S2 normal heart sound present GI: Inspection: Yes normal to inspection Palpation (GI): Soft to palpation, Tenderness to palpation present (GI) in the epigastrum, in the RLQ and in the RUQ; with no rebound tenderness, no guarding and not rigid : General: Yes no CVA tenderness Back/Spine/Pelvis: Back: no CVA tenderness Skin: General skin exam: dry skin Rashes: no rashes Wounds: no wounds Neuro: General: patient oriented x3 and no meningeal signs Gait exam (Neuro): Normal gait present Motor exam (neuro): No Asterixis during motor activity present Extrem: General: Yes normal to inspection Objective Data Labs CBC & Chem 7: 06/05/20 06:08 06/05/20 06:08 Labs: Laboratory Results - last 24 hr 06/01/20 06/04/20 06/04/20 20:05 16:31 20:51 WBC RBC Hgb Hct MCV MCH MCHC RDW Plt Count MPV Immature Gran % (Auto) Neut % (Auto) Lymph % (Auto) [place] % (Auto) Eos % (Auto) Baso % (Auto) Lymph # (Auto) [place] # (Auto) Eos # (Auto) Baso # (Auto) Abs Immat Gran (auto) Absolute Neuts (auto) Absolute Nucleated RBC Nucleated RBC % (auto) Sodium Potassium Chloride Carbon Dioxide Anion Gap BUN Creatinine Estim Creat Clear Calc Estimated GFR POC Glucose 87 97 Random Glucose Calcium MIKI Screen POSITIVE A MIKI Titer 1:320 H MIKI Titer 2 TNP MIKI Titer 3 TNP MIKI Pattern A MIKI Pattern 2 TNP MIKI Pattern 3 TNP 06/05/20 06/05/20 06/05/20 06:08 06:08 07:54 WBC 6.7 RBC 3.34 L Hgb 10.1 L Hct 29.6 L MCV 88.6 MCH 30.2 MCHC 34.1 RDW 13.2 Plt Count 369 D MPV 9.9 Immature Gran % (Auto) 0.6 H Neut % (Auto) 81.3 H Lymph % (Auto) 10.8 L [place] % (Auto) 5.5 Eos % (Auto) 1.8 Baso % (Auto) 0.0 Lymph # (Auto) 0.7 L [place] # (Auto) 0.4 Eos # (Auto) 0.1 Baso # (Auto) 0.0 Abs Immat Gran (auto) 0.04 H Absolute Neuts (auto) 5.4 Absolute Nucleated RBC 0.000 Nucleated RBC % (auto) 0.0 Sodium 145 Potassium 3.5 Chloride 116 H Carbon Dioxide 21 L Anion Gap 12 BUN 61 H Creatinine 4.11 H* Estim Creat Clear Calc 18.0 Estimated GFR 14 POC Glucose 70 Random Glucose 68 Calcium 7.6 L MIKI Screen MIKI Titer MIKI Titer 2 MIKI Titer 3 MIKI Pattern MIKI Pattern 2 MIKI Pattern 3 06/05/20 06/05/20 11:19 16:07 WBC RBC Hgb Hct MCV MCH MCHC RDW Plt Count MPV Immature Gran % (Auto) Neut % (Auto) Lymph % (Auto) [place] % (Auto) Eos % (Auto) Baso % (Auto) Lymph # (Auto) [place] # (Auto) Eos # (Auto) Baso # (Auto) Abs Immat Gran (auto) Absolute Neuts (auto) Absolute Nucleated RBC Nucleated RBC % (auto) Sodium Potassium Chloride Carbon Dioxide Anion Gap BUN Creatinine Estim Creat Clear Calc Estimated GFR POC Glucose 93 114 Random Glucose Calcium MIKI Screen MIKI Titer MIKI Titer 2 MIKI Titer 3 MIKI Pattern MIKI Pattern 2 MIKI Pattern 3 Microbiology Microbiology Results: Microbiology 05/28/20 08:39 Blood - Venous Blood Culture - Final No growth after 5 days. 05/28/20 08:39 Blood - Venous Blood Culture - Final No growth after 5 days. Assessment & Plan Assessment and plan (1) COVID-19: Status: Acute (2) MERLE (acute kidney injury): Status: Acute (3) Diarrhea: Status: Acute Assessment and Plan: 74-year-old male COVID positive admitted with abdominal pain and dark color stools and MERLE on CKD 1. MERLE: cont decr Scr is a good sign; suggest responding to IVF and renal h ypoperfusion BUT still need to monitor closley DDx includes IV vol depletion and pre-renal, multifact ATN with ques of COVID assoc tubukar-interstial injury; doubt Obs given rodriguez in place w/u thus far reveals marked Uprot excretion based o Up/Cr ratio but ques accuracy in setting of MERLE 2. GI: ongoing tx/eval 3. CKD 4: bsl Scr 2.0- 3.0 most c/w DN/HTN renal dis 4. HTN: better now with addition of hydralazine No indication for HD at this point but if cont WRF could end up needing HD; will liely NOT need kidney Bx if indeed the Scr cont to decrease REC: cont IVF; incr hydrlazine as needed; track UOP/renal func; no indication for HD at this time and hopefully can avoid; sero as norma will follow with team Time Spent With Patient Time: Total time spent is greater than 50% in coordination of care (as documented) at patient's floor/unit and/or counseling patient:
[2020-06-05 19:02] VITALS: BP 151/81; PULSE 75; RESP 18; TEMP 36.8; O2SAT 94
[2020-06-05 19:57] LABS: Glucose, Whole Blood 147 mg/dL (60-115)
[2020-06-05] MEDS: Atorvastatin Calcium 80 MG TABLET PO (20:33)
[2020-06-05] MEDS: Fenofibrate 54 MG TABLET PO (20:33)
--- NOTE | 2020-06-05 22:12 | PC.NURSE ---
Pt became very restless, uncooperative, stated that he wants to go home tonight. recruitment advertising manager was requested at the bedside, pt's called no answers . Pt requested to speak to his daughter . The phone number to his daughter Mayra [phone]. Pt talked to his daughter on the phone making statements that he wants to go home tonight. pt requested the police, After the conversation with application security engineer regarding pt safety ,pt stated that he will stay tonight.
[2020-06-06] VITALS: BP 150/74; PULSE 70; RESP 18; TEMP 36.8; O2SAT 94
[2020-06-06 01:22] LABS: Lipoprotein Asso Phospholip A2 34 (<=123)
[2020-06-06 03:35] VITALS: BP 163/88; PULSE 67; RESP 18; TEMP 36.8; O2SAT 94
[2020-06-06] MEDS: Heparin Sodium,Porcine 5,000 UNIT/ML VIAL 5000 UNIT SUBCUT (05:33)
[2020-06-06 07:20] LABS: Anion Gap 9 (12-20); Blood Urea Nitrogen 58 mg/dL (9-16); Calcium 7.6 mg/dL (8.4-10.2); Carbon Dioxide 23 mmol/L (22-29); Chloride 116 mmol/L (96-108); Creatinine Clr Calc Pharmacy 19.7; Estimated Glomerular Filt Rate 16; Glucose Random 172 mg/dL (60-115); Potassium 3.3 mmol/L (3.3-5.1); Sodium 145 mmol/L (135-145)
[2020-06-06 07:26] LABS: Glucose, Whole Blood 161 mg/dL (60-115)
[2020-06-06 07:46] VITALS: BP 175/75; PULSE 76; RESP 20; TEMP 36.6; O2SAT 94
[2020-06-06] MEDS: Famotidine 20 MG TABLET PO (07:46)
[2020-06-06] MEDS: hydrOXYzine HCL 25 MG TABLET PO (07:46)
[2020-06-06] MEDS: Cyanocobalamin (Vitamin B-12) 1,000 MCG TABLET 1000 MCG PO (07:46)
[2020-06-06] MEDS: hydrALAZINE HCl 25 MG TABLET PO ×2 (07:47→10:09)
[2020-06-06] MEDS: Cholecalciferol (Vitamin D3) 25 MCG TABLET 50 MCG PO (07:47)
[2020-06-06] MEDS: amLODIPine Besylate 10 MG TABLET PO (07:47)
[2020-06-06] MEDS: carvediloL 25 MG TABLET PO (07:47)
--- NOTE | 2020-06-06 09:40 | PC.NURSE ---
patient removed stencil inspector, refusing to allow for staff to reapply. md aware. will try again when patient is willing
--- NOTE | 2020-06-06 11:21 | P.DS_ITS ---
DS: Providers Provider Date of Service: 06/09/20 Date of admission: 05/26/20 17:30 Primary care physician: Brittney Leger DO Consults: 05/26/20 17:34 Consult to Gastroenterology Routine Consulting Provider: Kulwant Nguyen Reason for consultation: gi bleed Has provider been notified: No 05/27/20 09:03 Consult to Nephrology Routine Consulting Provider: Colten Lee Reason for consultation: merle on CKD DS: Diagnosis Discharge Diagnosis (1) COVID-19: Status: Acute (2) MERLE (acute kidney injury): Status: Acute (3) Diarrhea: Status: Acute DS: Medications Discharge Medications Home Medications: Home Medications Medication Instructions Recorded Confirmed omeprazole 20 mg capsule,delayed 20 mg PO DAILY 03/12/20 05/26/20 release acetaminophen [Arthritis Pain 650 mg PO Q8H PRN 05/26/20 05/26/20 Reliever] amlodipine 10 mg PO DAILY 05/26/20 05/26/20 aspirin 81 mg PO DAILY 05/26/20 05/26/20 baclofen 10 mg PO TID PRN 05/26/20 05/26/20 carvedilol [Coreg] 25 mg PO BID 05/26/20 05/26/20 cholecalciferol (vitamin D3) 50 mcg PO DAILY 05/26/20 05/26/20 [Vitamin D3] cyanocobalamin (vitamin B-12) 1,000 mcg PO DAILY 05/26/20 05/26/20 [Vitamin B-12] fenofibrate nanocrystallized 48 mg PO BEDTIME 05/26/20 05/26/20 furosemide 40 mg PO BIDWM 05/26/20 05/26/20 insulin aspart U-100 [Novolog 10 unit SUBCUT TIDWM 05/26/20 05/26/20 Flexpen U-100 Insulin] insulin glargine [Lantus Solostar 32 unit SUBCUT BEDTIME 05/26/20 05/26/20 U-100 Insulin] losartan 25 mg PO DAILY 05/26/20 05/26/20 rosuvastatin 20 mg PO BEDTIME 05/26/20 05/26/20 DS: Summary Hospital Course Hospital Course: History presenting illness 74-year-old St Helen[place]-speaking male, presenting to the ER with complaints of 5 days of abdominal pain and black stool. He reports poor appetite with nausea. He reported at one point over the last 5 days, he had a fever. He reports that he is on aspirin daily and occasionally takes ibuprofen. He did note diarrhea with black stool. In the ER, abdominal and pelvic CT showed prior right hemicolectomy with no bowel obstruction, chronic fat containing left inguinal hernia and prior cholecystectomy. His vital signs are stable, no fever noted. Labs all within acceptable limits. He does have a history of chronic kidney disease. His creatinine today is mildly above baseline. Lipase 115. Urinalysis negative, stool occult negative, coronavirus positive from May 20. The patient received 2 L of IV fluids, IV Pepcid. The patient will be admitted for further management and treatment of possible GI bleed with abdominal pain. PAST MEDICAL HISTORY: 1. Coronary artery disease, status post CABG. 2. Diabetes mellitus. 3. Hypertension. 4. CKD. 5. Hemicolectomy. 6. Cholecystectomy. Hospital course 74-year-old male COVID positive admitted with abdominal pain and dark color stools and and diagnosed to have MERLE on CKD 1. MERLE on chronic kidney disease stage IV baseline creatinine 2-3, acute injury likely pre renal, since responded to IV fluids there was concern for multifactorial ATN and question tubular interstitial injury with recent diagnosis of covid, however creatinine improved to 3.76 close to baseline of 2 - 3, since patient is tolerating diet will discharge him home and check BMP on June 09 Will continue to hold Lasix and losartan recommended outpatient follow-up with Dr. Reza. Strongly advised to abstain from NSAIDs. 2. Epigastric pain associated with nausea and dark-colored stool,no GI bleed noted likely patient has NSAID induced gastritis but since patient hematocrit is stable and he is tolerating diet, no further intervention is planned by ceramic tile installation helper Dr. Edward, will discharge patient on Prilosec twice daily and recommend outpatient follow-up with Dr. Edward for endoscopy. 3. Hypoglycemia with history of Diabetes mellitus noted to have low blood sugars in 50s and 60s likely due to acute renal injury, poor by mouth intake and use of insulin, TSH is within normal range will hold Lantus and reduce dose of pre meal insulin recommend to continue diabetic diet follow blood sugars closely and if noted to have elevated blood sugar resume home dose of Lantus . 4. Hypertension continue Norvasc 10 mg and Coreg 25 mg b.i.d., recommend to hold Lasix and losartan due to MERLE, patient placed on hydralazine 50 mg b.i.d. can increase dose to t.i.d. BP remains elevated 5. CAD no complain of chest pain, continue statins , beta blockers and started back on aspirin 6. COVID pneumonia, patient oxygenation is stable, no treatment required. Time Spent with Patient Time attestation: Total time spent providing and/or coordinating discharge services: Discharge coordination time: Greater than 30 minutes Physical Exam Vital Signs: Vital Signs: Last Vital Signs Temp 97.9 F 06/06/20 07:46 Pulse 76 06/06/20 07:46 Resp 20 06/06/20 07:46 BP 175/75 H 06/06/20 07:46 Pulse Ox 94 06/06/20 07:46 Body Mass Index 31.6 General no acute distress. Neck supple no JVD. CVS regular rate rhythm, Respiratory lungs clear to auscultation, no respiratory distress, no wheeze, no rhonchi. Gastrointestinal abdomen soft, non tender, bowel sounds audible, no guarding , no rigidity. Lower Extremities no clubbing, cyanosis or edema, puffiness both upper hands . Neuro nonfocal , speech clear. Skin no rash DS: Data Data Completed and Pending Labs on day of discharge: Laboratory Results - last 24 hr 06/01/20 06/01/20 06/05/20 20:05 20:05 11:19 Sodium Potassium Chloride Carbon Dioxide Anion Gap BUN Creatinine Estim Creat Clear Calc Estimated GFR POC Glucose 93 Random Glucose Calcium LP-Assoc Phospholip A2 34 MIKI Titer 2 TNP MIKI Titer 3 TNP MIKI Pattern 2 TNP MIKI Pattern 3 TNP 06/05/20 06/05/20 06/06/20 16:07 19:53 06:11 Sodium 145 Potassium 3.3 Chloride 116 H Carbon Dioxide 23 Anion Gap 9 L BUN 58 H Creatinine 3.76 H Estim Creat Clear Calc 19.7 Estimated GFR 16 POC Glucose 114 147 H Random Glucose 172 H D Calcium 7.6 L LP-Assoc Phospholip A2 MIKI Titer 2 MIKI Titer 3 MIKI Pattern 2 MIKI Pattern 3 06/06/20 07:17 Sodium Potassium Chloride Carbon Dioxide Anion Gap BUN Creatinine Estim Creat Clear Calc Estimated GFR POC Glucose 161 H Random Glucose Calcium LP-Assoc Phospholip A2 MIKI Titer 2 MIKI Titer 3 MIKI Pattern 2 MIKI Pattern 3 Discharge Plan Discharge Patient Disposition: Home Health Service Referrals: [facility] [Outside] Brittney Leger DO [Primary Care Provider] - Discharge Medications: New hydralazine 50 mg tablet 50 mg PO BID Qty: 60 RF: 0 Continued acetaminophen [Arthritis Pain Reliever] 650 mg Tablet Extended Release 650 mg PO Q8H PRN (Reason: Pain (Scale Score 1-3)) RF: 0 baclofen 10 mg Tablet 10 mg PO TID PRN (Reason: Muscle Spasm) RF: 0 cholecalciferol (vitamin D3) [Vitamin D3] 50 mcg (2,000 unit) Tablet 50 mcg PO DAILY RF: 0 cyanocobalamin (vitamin B-12) [Vitamin B-12] 1,000 mcg Tablet 1,000 mcg PO DAILY RF: 0 rosuvastatin 20 mg Tablet 20 mg PO BEDTIME RF: 0 fenofibrate nanocrystallized 48 mg Tablet 48 mg PO BEDTIME RF: 0 carvedilol [Coreg] 25 mg Tablet 25 mg PO BID RF: 0 aspirin 81 mg Tablet,Delayed Release (Dr/Ec) 81 mg PO DAILY RF: 0 amlodipine 10 mg Tablet 10 mg PO DAILY RF: 0 Changed insulin aspart U-100 [Novolog Flexpen U-100 Insulin] 100 unit/mL (3 mL) Insulin Pen 5 unit SUBCUT TIDWM PRN (Reason: elevated bllod sugar >150) Qty: 0 RF: 0 omeprazole 20 mg capsule,delayed release(DR/EC) 20 mg PO BID Qty: 0 RF: 0 Discontinued losartan 25 mg Tablet 25 mg PO DAILY RF: 0 Lantus Solostar U-100 Insulin 100 unit/mL (3 mL) Insulin Pen 32 unit SUBCUT BEDTIME RF: 0 furosemide 40 mg Tablet 40 mg PO BIDWM RF: 0 Discharge Orders: Discharge Order (Routine); Ordered 06/06/20 Ordered By: Joseph White Diet: diabetic diet Activity on Discharge: As tolerated Stand Alone Forms: Patient Portal Discharge page Other Ambulatory Orders: Basic Metabolic Panel (Routine) Timeframe: [id number] Facility: [facility] - Location: Laboratory Ordered By: Joseph White Care Plan Goals: Follow blood sugars closely, resume Lantus if noted to have elevated blood sugars continue diabetic diet dose of Humalog reduced to 5 mg before meals Do not take Advil Motrin or similar drugs Health Concerns: Acute kidney injury/dark stools follow BMP on 06/09/20 and follow-up with Dr. Reza and Dr. Edward for GI workup,send result of BMP to Dr. Reza. Plan of Treatment: Follow-up with primary care physician, kidney doctor Dr. Reza and Dr. Edward from Gastroenterology. Discharge Date/Time: 06/06/20 13:49
[2020-06-06 11:32] LABS: Glucose, Whole Blood 124 mg/dL (60-115)
[2020-06-06 12:00] VITALS: BP 118/60; PULSE 69; RESP 20; TEMP 36.6; O2SAT 98
--- NOTE | 2020-06-06 12:21 | MHC.CM.PN ---
pt being discharged home today with [facility] referral. CM attempted to contact pts , Karyn and daughter, Mayra ([phone]) via t/c however neither person answered. VM messages were left for both requesting a return call and informing them of pts discharge.
--- NOTE | 2020-06-06 12:48 | MHC.CM.PN ---
Addendum entered by Odalis Hester 06/06/20 12:57: CM contacted accordion tuner transitions of care nurse at [facility], Maggie ([phone]) who provided auth for [facility] to provide senior living services. Original Note: CM received a return call from pts daughter, Mayra ([phone]) who reports she lives with the pt and will be the one picking him up at DC. She reports [facility]. She will be picking up the pt at 1330 hours and asks that the nurse review the DC instructions with her via telephone prior to DC. Request sent to nurse via [employer].
== END 2020-06-06 13:49 | disposition home health service (06) | DRG 177 ==
LOC: HO.ED 15:40 → HO.IMC 18:23
PROVIDERS: Family Medicine; Internal Medicine Hypertension Specialist; Internal Medicine Nephrology; Nurse Practitioner Acute Care; Physician Assistant; Admitting Provider Internal Medicine; Emergency Provider Emergency Medicine; PCP Family Medicine; Visit Provider Hospitalist
DX: U07.1 COVID-19 (principal); N17.0 Acute kidney failure with tubular necrosis; J12.82 Pneumonia due to coronavirus disease 2019; N18.4 Chronic kidney disease, stage 4 (severe); I12.9 Hypertensive chronic kidney disease with stage 1 through stage 4 chronic kidney disease, or unspecified chronic kidney disease; R19.7 Diarrhea, unspecified; E11.649 Type 2 diabetes mellitus with hypoglycemia without coma; E11.22 Type 2 diabetes mellitus with diabetic chronic kidney disease; Z88.5 Allergy status to narcotic agent; I25.10 Atherosclerotic heart disease of native coronary artery without angina pectoris; Z95.1 Presence of aortocoronary bypass graft; Z79.4 Long term (current) use of insulin; Z79.82 Long term (current) use of aspirin; Z79.899 Other long term (current) drug therapy
CPT/HCPCS: 36415; 74176; 80048; 80053; 81001; 82272; 82550; 82947; 83010; 83615; 83690; 83698; 83735; 84100; 84156; 84300; 84443; 84550; 85025; 85027; 86021; 86038; 86039; 86160; 86704; 86706; 86803; 87040; 87340; 87635; 96361; 96374; 97162; 99232; 99285; C1758; J1100; J2405; Q0163

== ENCOUNTER 2020-06-09 11:30 | Outpatient (REF) | payer MEDICARE, SELFPAY ==
[2020-06-09 12:35] LABS: Anion Gap 8 (12-20); Blood Urea Nitrogen 44 mg/dL (9-16); Calcium 7.2 mg/dL (8.4-10.2); Carbon Dioxide 26 mmol/L (22-29); Chloride 112 mmol/L (96-108); Estimated Glomerular Filt Rate 17; Glucose Random 193 mg/dL (60-115); Potassium 3.3 mmol/L (3.3-5.1); Sodium 143 mmol/L (135-145)
== END 2020-06-09 11:31 | disposition home or self-care (01) ==
LOC: HO.LNP 11:30
PROVIDERS: Visit Provider Family Medicine
DX: N17.9 Acute kidney failure, unspecified (principal)
CPT/HCPCS: 80048

== ENCOUNTER 2020-06-18 14:53 | Outpatient (REF) | payer MEDICARE, SELFPAY ==
--- NOTE | ~2020-06-18 | XR_ITS ---
EXAMINATION: XR ANKLE, LEFT CLINICAL INFORMATION: Pain COMPARISON: None TECHNIQUE: AP, lateral, and mortise views of the left ankle. FINDINGS: There is an old healed fracture of the distal tibial shaft. No acute fracture or dislocation is seen. There is mild arthritis at the tibiotalar joint. There is soft tissue arterial calcification. XR/XR ankle LT 2V IMPRESSION: Old healed fracture of the distal tibial shaft. Mild arthritis at the ankle joint.
[2020-06-18 16:51] LABS: Hematocrit 30.3 % (42-52); Mean Corpuscular Hemoglobin 30.3 pg (27.0-33.0); Mean Corpuscular Volume 91.8 fL (80-98); Mean Platelet Volume 10.7 fL (9.4-12.4); Platelet Count 309 X10*3/uL (160-400); Red Cell Distribution Width 13.6 % (11.0-16.0); White Blood Count 5.6 X10*3/uL (4.8-10.8)
[2020-06-18 17:06] LABS: Anion Gap 14 (12-20); Blood Urea Nitrogen 21 mg/dL (9-16); Calcium 8.5 mg/dL (8.4-10.2); Carbon Dioxide 28 mmol/L (22-29); Chloride 103 mmol/L (96-108); Estimated Glomerular Filt Rate 19; Glucose Random 203 mg/dL (60-115); Potassium 5.1 mmol/L (3.3-5.1); Sodium 140 mmol/L (135-145)
== END 2020-06-18 23:59 | disposition home or self-care (01) ==
LOC: HO.LAB 14:53
PROVIDERS: Absent Provider Hospitalist; PCP Family Medicine; Visit Provider Family Medicine
DX: N28.9 Disorder of kidney and ureter, unspecified (principal); M25.572 Pain in left ankle and joints of left foot; M25.472 Effusion, left ankle
CPT/HCPCS: 36415; 73600; 80048; 85027

== ENCOUNTER → 2020-08-18 09:47 | Outpatient (BNVA) | payer MEDICARE, SELFPAY | PROVIDERS: PCP Family Medicine; Visit Provider Physician Assistant | DX: M19.072 Primary osteoarthritis, left ankle and foot (principal) | CPT/HCPCS: 99202 ==

== ENCOUNTER 2020-10-05 10:00 | Outpatient (RCR) | payer MEDICARE, SELFPAY ==
--- NOTE | 2020-09-06 14:59 | MHC.PT.EP ---
[facility] [place] Office [place] Office [place] Office [address] [phone] F: [phone] F: [phone] F: [phone] F: [phone] Physical Therapy Plan of Care Date of Evaluation: Date of Surgery: Diagnosis: ANKLE OA Assessment: SELENA ARRIVES WITH EDEMA OF LOWER EXTREMITIES, LEFT GREATER THAN RIGHT. UPON EXAM THERE IS NO PAIN NOR ALTERED SENSATION. THERE IS A SLIGHT LOSS OF AROM, PROM IS WNSLs. STRENGTH IS WNLs. EDEMA APPEARS NON-ORTHOPEDIC IN NATURE. SELENA REPORTS NO FUNCTIONAL LIMITATIONS WITH THE EXCEPTION OF NOT BEING ABLE TO WALK FAR HE USED TO WITHOUT INCREASED EDEMA. THIS IMPROVES WITH THE USE OF COMPRESSION GARMENTS ISSUED BY ORTHO. RECOMMENDATION AT THIS TIME IS TO FOCUS ON HEP FOR ROM AND STABILITY WITH EDUC AND PERFORMANCE OF EDEMA REDUCING ACTIVITIES. Frequency and Duration: The patient will be seen 1 X WEEK FOR 4 WEEKS Short Term Goals: INITIATE HEP AND EDUC IN SELF MANAGEMENT OF EDEMA SYMPTOMS IN 2 VISITS Shelter Goals: FULL ANKLE ROM IN 4 WEEKS INDEPENDENT WITH HEP IN 4 WEEKS Treatment Plan: Modalities to reduce pain, spasms and effusion. Manual therapy to restore motion and function. Therapeutic exercise to improve strength and flexibility. Neuromuscular re-education for posture and balance. Therapeutic activities to return to functional activities of daily living. Electronically signed by: KING PEREZ PT, DPT Please sign and return to therapist. Thank you for your referral.
--- NOTE | 2020-11-02 10:55 | MHC.PT.DC ---
[facility] [place] Office [place] Office [place] Office [address] Avi Gamez [address] [phone] F: [phone] F: [phone] F: [phone] F: [phone] Physical Therapy Discharge Report Diagnosis: ANKLE OA Date of Surgery: Date of Evaluation: 09/06/20 Date of Discharge: 10/03/20 Treatments to Date: 5 Cancellations to Date: 0 No Shows to Date: 1 Discharge Status: Improved Function Independent with HEP Discharge Summary: Hardeep missed his last scheduled appointment but was progressing well with current program. He was able to progress to step up activities and utilize increased resistance with band work. His swelling remains fairly consistent and he may benefit from f/u with MD to r/o other systemic issues. Electronically signed by: Amanda Boyer PT, DPT Please sign and return to therapist. Thank you for your referral.
== END 2020-11-02 11:38 | disposition home or self-care (01) ==
LOC: HO.PT 10:00
PROVIDERS: PCP Family Medicine; Visit Provider Physician Assistant
DX: M19.072 Primary osteoarthritis, left ankle and foot (principal)
CPT/HCPCS: 97110; 97112; 97140; 97150; 97161

== ENCOUNTER 2020-11-16 07:51 | Day surgery (SDC) | payer MEDICARE, SELFPAY ==
--- NOTE | 2020-11-15 09:20 | P.CONAN_ITS ---
Documented by User: Serena Hsu NP 11/15/20 12:01 HPI - Anesthesia Eval Consult details Narrative: 75yo M for Upper Endoscopy Stable at routine cardiac visit 01/2020, walks 1 hour daily PMFSH Active Problems Active Problems: All Active Problems (Updated 11/09/20 @ 15:15 by Alma Lopez, RN) MERLE (acute kidney injury) (Acute) Osteoarthritis of left ankle (Acute) Past Medical History Medical History (Updated 11/16/20 @ 09:29 by Princess Archuleta MD) CAD (coronary artery disease) CKD (chronic kidney disease) COVID-19 Diabetes Diarrhea Gout Hyperlipidemia Hypertension Surgical History Surgical History (Updated 11/09/20 @ 15:15 by Alma Lopez RN) History of open heart surgery Hx of cholecystectomy Hx of colectomy Hx of colonoscopy Social History Social History Household Members: Spouse Housing: Apartment Do you presently have visiting nurse or other home services: No Alcohol intake: never Patient Tobacco Use Status: Never used Tobacco Use of substances other than those prescribed or required for medical reasons: No Are you DNR?: No Advance Directives: No Advance Directives Information Provided: Yes service: No 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al status: retired 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 Meds Allergies Allergy/AdvReac Type Severity Reaction Status Date / Time morphine [MORPHINE] Allergy Intermediate HALLUCINATI Verified 11/16/20 08:36 ONS,TACHYCA RDIA,Vomiti ng Home Medications Medication Instructions Recorded Confirmed Last Taken Type acetaminophen 650 mg 650 mg PO Q8H PRN 05/26/20 11/09/20 Unknown History tablet,extended release (Arthritis Pain Reliever) amlodipine 10 mg tablet 10 mg PO DAILY 05/26/20 11/16/20 11/16/20 History aspirin 81 mg tablet,delayed 81 mg PO DAILY 05/26/20 11/16/20 11/14/20 History release baclofen 10 mg tablet 10 mg PO TID PRN 05/26/20 11/09/20 Unknown History carvedilol 25 mg tablet (Coreg) 25 mg PO BID 05/26/20 11/16/20 11/16/20 History cholecalciferol (vitamin D3) 50 50 mcg PO DAILY 05/26/20 11/09/20 Unknown History mcg (2,000 unit) tablet (Vitamin D3) cyanocobalamin (vitamin B-12) 1,000 mcg PO DAILY 05/26/20 11/09/20 Unknown History 1,000 mcg tablet (Vitamin B-12) fenofibrate nanocrystallized 48 mg 48 mg PO BEDTIME 05/26/20 11/09/20 Unknown History tablet rosuvastatin 20 mg tablet 20 mg PO BEDTIME 05/26/20 11/09/20 Unknown History furosemide 80 mg tablet 1 tab PO BID 11/09/20 11/09/20 Unknown History insulin glargine 100 unit/mL (3 32 unit SUBCUT QPM 11/09/20 11/09/20 Unknown History mL) subcutaneous pen (Lantus Solostar U-100 Insulin) Exam Exam Date and Time: November 15, 2020919 Pertinent Lab Results Pertinent Lab Results: Laboratory Tests 06/18/20 06/18/20 15:08 15:08 WBC 5.6 Hgb 10.0 L Hct 30.3 L Plt Count 309 Sodium 140 Potassium 5.1 D Chloride 103 Carbon Dioxide 28 BUN 21 H D Creatinine 3.20 H Narrative Narrative: EKG 04/2020 Vent. Rate : 075 BPM ? ? Atrial Rate : 075 BPM ?? P-R Int : 162 ms? QRS Dur : 104 ms ? ? QT Int : 394 ms ? ? ? P-R-T Axes : 039 026 -21 degrees ?? QTc Int : 439 ms ? Sinus rhythm with Premature atrial complexes Incomplete right bundle branch block Nonspecific ST abnormality Abnormal ECG When compared to the previous EKG of Premature atrial complexes are now Present Assessment and Plan Assessment Anesthesia Assessment: Chart Reviewed Documented by User: Princess Archuleta MD 11/16/20 09:31 [facility] Past Medical History Medical History (Updated 11/16/20 @ 09:29 by Princess Archuleta MD) CAD (coronary artery disease) CKD (chronic kidney disease) COVID-19 Diabetes Diarrhea Gout Hyperlipidemia Hypertension Family History Family history of problems with anesthesia: No Surgical History Surgical History (Updated 11/09/20 @ 15:15 by Alma Lopez RN) History of open heart surgery Hx of cholecystectomy Hx of colectomy Hx of colonoscopy History of Problems with Anesthesia: No Social History Social History Household Members: Spouse Housing: Apartment Do you presently have visiting nurse or other home services: No Alcohol intake: never Patient Tobacco Use Status: Never used Tobacco Use of substances other than those prescribed or required for medical reasons: No Are you DNR?: No Advance Directives: No Advance Directives Information Provided: Yes service: No 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al status: retired 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 Meds Allergies Allergy/AdvReac Type Severity Reaction Status Date / Time morphine [MORPHINE] Allergy Intermediate HALLUCINATI Verified 11/16/20 08:36 ONS,TACHYCA RDIA,Vomiti ng Home Medications Medication Instructions Recorded Confirmed Last Taken Type acetaminophen 650 mg 650 mg PO Q8H PRN 05/26/20 11/09/20 Unknown History tablet,extended release (Arthritis Pain Reliever) amlodipine 10 mg tablet 10 mg PO DAILY 05/26/20 11/16/20 11/16/20 History aspirin 81 mg tablet,delayed 81 mg PO DAILY 05/26/20 11/16/20 11/14/20 History release baclofen 10 mg tablet 10 mg PO TID PRN 05/26/20 11/09/20 Unknown History carvedilol 25 mg tablet (Coreg) 25 mg PO BID 05/26/20 11/16/20 11/16/20 History cholecalciferol (vitamin D3) 50 50 mcg PO DAILY 05/26/20 11/09/20 Unknown History mcg (2,000 unit) tablet (Vitamin D3) cyanocobalamin (vitamin B-12) 1,000 mcg PO DAILY 05/26/20 11/09/20 Unknown History 1,000 mcg tablet (Vitamin B-12) fenofibrate nanocrystallized 48 mg 48 mg PO BEDTIME 05/26/20 11/09/20 Unknown History tablet rosuvastatin 20 mg tablet 20 mg PO BEDTIME 05/26/20 11/09/20 Unknown History furosemide 80 mg tablet 1 tab PO BID 11/09/20 11/09/20 Unknown History insulin glargine 100 unit/mL (3 32 unit SUBCUT QPM 11/09/20 11/09/20 Unknown History mL) subcutaneous pen (Lantus Solostar U-100 Insulin) Exam Height,Weight and Vital Signs: Height 5 ft 7 in Weight 84.822 kg Vital Signs Temp Pulse Resp BP Pulse Ox 11/16/20 08:38 98.2 F 61 16 144/74 H 97 Pertinent Lab Results Pertinent Lab Results: Laboratory Tests 06/18/20 06/18/20 15:08 15:08 WBC 5.6 Hgb 10.0 L Hct 30.3 L Plt Count 309 Sodium 140 Potassium 5.1 D Chloride 103 Carbon Dioxide 28 BUN 21 H D Creatinine 3.20 H Lab Results 11/16/20 Range/Units 08:34 POC Glucose 185 H (60-115) mg/dL Airway Mallampati Class: II TM Dist: >3cm Neck ROM: Full Denture: Upper and Lower Heart: RRR Lungs: CTAB Assessment and Plan Assessment Anesthesia Assessment: Anesthesia Plan Discussed Final Anesthetic Review Family History of Problems with Anesthesia: No History of Problems with Anesthesia: No NPO: Yes ASA Class: III Final Preanesthetic Review: No Changes in Pt Med Stat, Meds/Allgs Chart Reviewed, Consent Obtained/Reviewed and Anes Risks/Benef Reviewed Patient Risk: Intermediate Procedure Risk: Low Assessment/Block/Sedation in SS: Assess/Block/Sedation-SS Anesthetic Plan Anesthetic Plan: MAC: Disposition: Standard PACU
[2020-11-16 08:38] VITALS: BP 144/74; PULSE 61; RESP 16; TEMP 36.8; O2SAT 97; BMI 29.2
[2020-11-16 08:38] LABS: Glucose, Whole Blood 185 mg/dL (60-115)
[2020-11-16] MEDS: Lactated Ringers 1,000 ML 100 ML IVCONT (08:59)
--- NOTE | 2020-11-16 09:30 | MHC.SHP ---
Pre-Procedural Eval Section A Date of Service: 11/16/20 The patient is an INPATIENT: No Changes since office visit: No Cold of Flu in the past 2 weeks, No New Medical Problems, No Changes in Medication and No Patient answered all questions The History & Physical has been completed within 30 days and I have reviewed it.: Yes Section B Chief Complaint: epigastric pain Allergies: Allergies Allergy/AdvReac Type Severity Reaction Status Date / Time morphine [MORPHINE] Allergy Intermediate HALLUCINATI Verified 11/16/20 08:36 ONS,TACHYCA RDIA,Vomiti ng Plan I have reviewed the history and physical and performed a pertinent physical examination on my patient. No changes have occurred unless specified.
--- NOTE | 2020-11-16 09:48 | PM.OP ---
Brief Operative Note Date of Service: 11/16/20 Pre-op diagnosis: epigastric pain Post-op diagnosis: same (gerd) Surgeon: Roderick Edward Anesthesia: MAC Estimated blood loss (mL): 2 Pathology: other (bxs egj and antrum) Condition: stable Disposition: PACU
[2020-11-16 09:58] VITALS: BP 90/46; PULSE 16; RESP 56; TEMP 36.1; O2SAT 100
[2020-11-16 10:00] VITALS: BP 112/56; PULSE 57; RESP 18; TEMP 36.1; O2SAT 96
[2020-11-16 10:13] VITALS: BP 110/65; PULSE 59; RESP 18; TEMP 36.2; O2SAT 95
--- NOTE | 2020-11-16 10:29 | OP_ITS ---
SURGEON: Roderick Edward MD INDICATIONS: Epigastric pain and gastroesophageal reflux disease. PREOPERATIVE DIAGNOSIS: POSTOPERATIVE DIAGNOSIS: PROCEDURE PERFORMED: Upper endoscopy with biopsy. ESTIMATED BLOOD LOSS: COMPLICATIONS: ANESTHESIA: ASSISTANTS: SPECIMENS: MEDICATIONS: Monitored anesthesia care. DESCRIPTION OF PROCEDURE: History and physical performed. The risks and benefits of the procedure were explained to the patient. Informed consent was obtained. The patient was placed in the left lateral decubitus position. The Olympus video gastroscope was introduced into the esophagus, stomach, and duodenum. Examination was performed and the scope was removed. He tolerated the procedure well and was taken to recovery area in stable condition. FINDINGS: UPPER ENDOSCOPY: Esophagus: The esophagus showed an irregular EG junction. There was no definite esophagitis. Biopsies were obtained from the EG junction. Stomach: The stomach showed no evidence of masses, ulcers, or polyps. The antrum was somewhat nodular. Biopsies were obtained from the antrum to evaluate for H pylori. Duodenum: The bulb and second portion were normal. IMPRESSION: 1. Epigastric pain. 2. Gastroesophageal reflux disease. RECOMMENDATION: Follow up the biopsy results. MD ELI Maria/LUDMILA / [id number]
== END 2020-11-16 11:25 ==
LOC: HO.SSS 07:51
PROVIDERS: PCP Family Medicine; Visit Provider Internal Medicine Gastroenterology
PROC: 0DJ08ZZ Inspection of Upper Intestinal Tract, Via Natural or Artificial Opening Endoscopic (ICD-10-PCS; CPT 43235; principal; 2020-11-16 09:30)
DX: K29.50 Unspecified chronic gastritis without bleeding (principal); K21.9 Gastro-esophageal reflux disease without esophagitis; Z90.49 Acquired absence of other specified parts of digestive tract; I12.9 Hypertensive chronic kidney disease with stage 1 through stage 4 chronic kidney disease, or unspecified chronic kidney disease; E11.22 Type 2 diabetes mellitus with diabetic chronic kidney disease; N18.9 Chronic kidney disease, unspecified; Z79.4 Long term (current) use of insulin; M10.9 Gout, unspecified; Z79.82 Long term (current) use of aspirin; Z79.899 Other long term (current) drug therapy; I25.10 Atherosclerotic heart disease of native coronary artery without angina pectoris; Z95.1 Presence of aortocoronary bypass graft; Z88.8 Allergy status to other drugs, medicaments and biological substances; Z86.16 Personal history of COVID-19
CPT/HCPCS: 43239; 82947; 88305; 88342; J3010

== ENCOUNTER → 2023-04-20 20:30 | Outpatient (REF) | payer MEDICARE, SELFPAY | LOC: HO.SL 20:30 | PROVIDERS: PCP Family Medicine; Visit Provider Family Medicine | DX: Z13.89 Encounter for screening for other disorder (principal) ==

== ENCOUNTER 2023-07-04 08:42 | Outpatient (REF) | payer MEDICARE, SELFPAY ==
[2023-07-04 12:33] LABS: Creatinine Urine 162.11 mg/dL; Microalbum/Creatinine Ratio Ur 18.5 ug/mg cr (<30)
== END 2023-07-04 08:43 | disposition home or self-care (01) ==
LOC: HO.HHCL 08:42
PROVIDERS: Visit Provider Family Medicine
DX: E11.22 Type 2 diabetes mellitus with diabetic chronic kidney disease (principal); N18.5 Chronic kidney disease, stage 5; Z79.4 Long term (current) use of insulin; Z94.0 Kidney transplant status
CPT/HCPCS: 82043; 82570

== ENCOUNTER 2023-07-18 09:25 | Outpatient (REF) | payer MEDICARE, SELFPAY ==
[2023-07-18 11:36] LABS: MANUAL DIFF FLAG NO
[2023-07-18 11:43] LABS: Basophils Percent Auto 0.2 % (0-2); Eosinophils Percent Auto 0.7 % (0-4); Hematocrit 39.2 % (42.0-52.0); Hemoglobin 13.6 g/dl (14.0-18.0); Imm Gran Abs Auto 0.02 X10*3/uL (0.00-0.03); Imm Gran Pct Auto 0.3 % (0.0-0.4); Lymphocytes Absolute Auto 2.8 X10*3/uL (1.2-4.9); Lymphocytes Percent Auto 48.4 % (20-40); Mean Corpuscular HGB Conc 34.7 g/dl (31.0-36.0); Mean Corpuscular Hemoglobin 30.9 pg (27.0-33.0); Mean Corpuscular Volume 89.1 fL (80.0-98.0); Mean Platelet Volume 10.4 fL (9.4-12.4); Monocytes Absolute Auto 0.5 X10*3/uL (0.1-1.2); Neutrophils Absolute Auto 2.4 x10*3/uL (2.0-8.3); Neutrophils Percent Auto 41.4 % (45-73); Platelet Count 163 X10*3/uL (160-400); Red Cell Distribution Width 13.2 % (11.0-16.0); White Blood Count 5.8 X10*3/uL (4.8-10.8)
[2023-07-18 12:18] LABS: Alanine Aminotransferase 20 U/L (0-40); Albumin Level 4.4 g/dL (3.5-5.0); Alkaline Phosphatase 51 U/L (39-117); Anion Gap 12 (12-20); Aspartate Amino Transferase 25 U/L (5-37); Bilirubin Direct 0.2 mg/dL (0.0-0.5); Bilirubin Total 0.6 mg/dL (0.0-1.0); Blood Urea Nitrogen 18 mg/dL (9-16); Calcium 10.1 mg/dL (8.4-10.2); Carbon Dioxide 25 mmol/L (22-29); Chloride 103 mmol/L (96-108); Cholesterol 132 mg/dL (<200); Estimated Glomerular Filt Rate 52; Glucose Random 202 mg/dL (60-115); HDL Cholesterol 33 mg/dL (>40); Iron 77 mcg/dL (45-160); LDL Cholesterol Calculated 29 mg/dL (<100); Percent Iron Saturation 22 % (15-50); Potassium 4.3 mmol/L (3.3-5.1); Sodium 136 mmol/L (135-145); Total Iron Binding Capacity 347 mcg/dL (228-428); Total Protein 8.4 g/dL (6.5-8.0); Triglycerides 351 mg/dL (<150); Unsaturated Iron Binding 270 ug/dL
[2023-07-18 12:35] LABS: Ferritin 84 ng/mL (20-250); Free T4 (Free Thyroxine) 1.03 ng/dL (0.71-1.85); Thyroid Stimulating Hormone 2.64 uIU/mL (0.32-4.0); Vitamin D 25-OH Total 44.8 ng/mL (>30)
[2023-07-18 12:41] LABS: Folate 10.8 ng/mL (> or = 4.0); Vitamin B12 530 pg/mL (200-900)
== END 2023-07-18 09:26 | disposition home or self-care (01) ==
LOC: HO.HHCL 09:25
PROVIDERS: Visit Provider Family Medicine
DX: E11.22 Type 2 diabetes mellitus with diabetic chronic kidney disease (principal); N18.30 Chronic kidney disease, stage 3 unspecified; Z79.4 Long term (current) use of insulin
CPT/HCPCS: 36415; 80048; 80061; 80076; 82306; 82607; 82728; 82746; 83540; 84439; 84443; 85025

== ENCOUNTER 2023-09-07 08:51 | Day surgery (SDC) | payer OTHER, SELFPAY ==
[2023-09-05 07:51] VITALS: BMI 29.8
--- NOTE | 2023-09-06 11:52 | HO.ANESPROP2 ---
Documented by User: Serena Hsu NP 09/06/23 11:56 HPI - Anesthesia Eval Consult details Narrative: 78yo M for Colonoscopy s/p renal transplant 2021 Follows [facility] for CAD, htn, hld. Stable/asymptomatic at 07/2023 routine office visit [facility] Active Problems Active Problems: All Active Problems Osteoarthritis of left ankle (Acute) MERLE (acute kidney injury) (Acute) Past Medical History Medical History (Updated 09/07/23 @ 09:38 by Georgina Reyes RN) GERD (gastroesophageal reflux disease) CAD (coronary artery disease) Hyperlipidemia Gout CKD (chronic kidney disease) Diarrhea COVID-19 Hypertension Diabetes Family History Family history of problems with anesthesia: No Surgical History Surgical History History of esophagogastroduodenoscopy (EGD) Hx of kidney transplant Hx of cholecystectomy Hx of colectomy Hx of colonoscopy History of open heart surgery History of Problems with Anesthesia: No Social History Social History Household Members: Spouse Housing: Apartment Do you presently have visiting nurse or other home services: No Alcohol intake: never Comment: Pt resting comfortably Patient Tobacco Use Status: Never used Tobacco Use of substances other than those prescribed or required for medical reasons: No Are you DNR?: No Advance Directives: No Advance Directives Information Provided: Yes service: No 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al status: retired 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 Meds Allergies Allergy/AdvReac Type Severity Reaction Status Date / Time morphine [MORPHINE] Allergy Intermediate HALLUCINATI Verified 09/07/23 09:40 ONS,TACHYCA RDIA,Vomiti ng Home Medications ?Medication ?Instructions ?Recorded ?Confirmed ?Last Taken ?Type aspirin 81 mg tablet,delayed 81 mg PO DAILY 05/26/20 09/07/23 08/31/23 History release cholecalciferol (vitamin D3) 50 50 mcg PO DAILY 05/26/20 09/07/23 Unknown History mcg (2,000 unit) tablet (Vitamin D3) cyanocobalamin (vitamin B-12) 1,000 mcg PO DAILY 05/26/20 09/07/23 Unknown History 1,000 mcg tablet (Vitamin B-12) rosuvastatin 20 mg tablet 20 mg PO BEDTIME 05/26/20 09/07/23 Unknown History insulin glargine 100 unit/mL (3 36 unit subcut QPM 11/09/20 09/07/23 Unknown History mL) subcutaneous pen (Lantus Solostar U-100 Insulin) amlodipine 2.5 mg-benazepril 10 mg 1 cap PO DAILY 09/05/23 09/07/23 Unknown History capsule carvedilol 6.25 mg tablet 6.25 mg PO BID 09/05/23 09/07/23 09/07/23 07:30 History dulaglutide 0.75 mg/0.5 mL 0.75 mg subcut QWEEK 09/05/23 09/07/23 08/31/23 History subcutaneous pen injector (Trulicity) omega 0-clc-elk-fish oil 1,000 mg 1 cap PO DAILY 09/05/23 09/07/23 08/31/23 History (120 mg-180 mg) capsule (Fish Oil) tacrolimus 4 mg tablet,extended 4 mg PO DAILY 09/05/23 09/07/23 Unknown History release 24 hr (Envarsus XR) tamsulosin 0.4 mg capsule 0.4 mg PO DAILY 09/05/23 09/07/23 Unknown History Exam Height,Weight and Vital Signs: Height 5 ft 7 in Weight 86.183 kg Pertinent Lab Results Pertinent Lab Results: Laboratory Tests 07/18/23 09:34 WBC 5.8 Hgb 13.6 L Hct 39.2 L Plt Count 163 Sodium 136 Potassium 4.3 Chloride 103 Carbon Dioxide 25 BUN 18 H Creatinine 1.33 Narrative Narrative: ECHO 06/2023 EF 65% Gr 1 DD with impaired LV relax Mild calcified sclerotic appearing aortic valve leaflets with minimal aortic stenosis with a mean gradient <15 Nml estimated PA pressures C/W 2021, LVH seems to have progressed with minimal Assessment and Plan Assessment Anesthesia Assessment: Chart Reviewed Final Anesthetic Review Family History of Problems with Anesthesia: No History of Problems with Anesthesia: No Documented by User: Denise Huber MD 09/07/23 10:46 [facility] Past Medical History Medical History (Updated 09/07/23 @ 09:38 by Georgina Reyes RN) GERD (gastroesophageal reflux disease) CAD (coronary artery disease) Hyperlipidemia Gout CKD (chronic kidney disease) Diarrhea COVID-19 Hypertension Diabetes Surgical History Surgical History History of esophagogastroduodenoscopy (EGD) Hx of kidney transplant Hx of cholecystectomy Hx of colectomy Hx of colonoscopy History of open heart surgery Social History Social History Household Members: Spouse Housing: Apartment Do you presently have visiting nurse or other home services: No Alcohol intake: never Comment: Pt resting comfortably Patient Tobacco Use Status: Never used Tobacco Use of substances other than those prescribed or required for medical reasons: No Are you DNR?: No Advance Directives: No Advance Directives Information Provided: Yes service: No 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al status: retired 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 Meds Allergies Allergy/AdvReac Type Severity Reaction Status Date / Time morphine [MORPHINE] Allergy Intermediate HALLUCINATI Verified 09/07/23 09:40 ONS,TACHYCA RDIA,Vomiti ng Home Medications ?Medication ?Instructions ?Recorded ?Confirmed ?Last Taken ?Type aspirin 81 mg tablet,delayed 81 mg PO DAILY 05/26/20 09/07/23 08/31/23 History release cholecalciferol (vitamin D3) 50 50 mcg PO DAILY 05/26/20 09/07/23 Unknown History mcg (2,000 unit) tablet (Vitamin D3) cyanocobalamin (vitamin B-12) 1,000 mcg PO DAILY 05/26/20 09/07/23 Unknown History 1,000 mcg tablet (Vitamin B-12) rosuvastatin 20 mg tablet 20 mg PO BEDTIME 05/26/20 09/07/23 Unknown History insulin glargine 100 unit/mL (3 36 unit subcut QPM 11/09/20 09/07/23 Unknown History mL) subcutaneous pen (Lantus Solostar U-100 Insulin) amlodipine 2.5 mg-benazepril 10 mg 1 cap PO DAILY 09/05/23 09/07/23 Unknown History capsule carvedilol 6.25 mg tablet 6.25 mg PO BID 09/05/23 09/07/23 09/07/23 07:30 History dulaglutide 0.75 mg/0.5 mL 0.75 mg subcut QWEEK 09/05/23 09/07/23 08/31/23 History subcutaneous pen injector (Trulicity) omega 6-caf-szj-fish oil 1,000 mg 1 cap PO DAILY 09/05/23 09/07/23 08/31/23 History (120 mg-180 mg) capsule (Fish Oil) tacrolimus 4 mg tablet,extended 4 mg PO DAILY 09/05/23 09/07/23 Unknown History release 24 hr (Envarsus XR) tamsulosin 0.4 mg capsule 0.4 mg PO DAILY 09/05/23 09/07/23 Unknown History Exam Airway Mallampati Class: III TM Dist: >3cm Neck ROM: Full Assessment and Plan Assessment Anesthesia Assessment: Anesthesia Plan Discussed Final Anesthetic Review NPO: Yes ASA Class: III Final Preanesthetic Review: No Changes in Pt Med Stat, Meds/Allgs Chart Reviewed, Consent Obtained/Reviewed and Anes Risks/Benef Reviewed Patient Risk: Intermediate Procedure Risk: Low Anesthetic Plan Anesthetic Plan: TIVA Disposition: Standard PACU
[2023-09-07 09:41] VITALS: BMI 29.7
[2023-09-07 09:56] VITALS: BP 151/80; PULSE 76; RESP 16; TEMP 36.4; O2SAT 96
--- NOTE | 2023-09-07 10:04 | P.HPSUR_ITS ---
Pre-Procedural Eval Section A - 24 Hr Update-Section A only Date of Service: 09/07/23 Section B - Complete if H&P > 30 days Chief Complaint: screening Details of Present Illness: see H&P no changes Relevant Family History (Specify if Yes): No Relevant Social History: None Medical History: No relevant PMH History of Previous Operations: No relevant previous surgery Allergies: Allergies Allergy/AdvReac Type Severity Reaction Status Date / Time morphine [MORPHINE] Allergy Intermediate HALLUCINATI Verified 09/07/23 09:40 ONS,TACHYCA RDIA,Vomiti ng Review of Systems Sugical H&P ROS: Negative: Constitution, Cardiovascular, Respiratory, Neuro logical, Psychiatric, Hem-Onc, Allergic/Immunologic, Gastrointestinal, Genitourinary, Musculoskeletal, Integumentary, Endocrine and Eyes/Ears/Nose/Throat Exam Surgical H&P Exam: Normal: HEENT, Normal: Heart, Normal: Lungs, Normal: Extremities, Normal: Abdomen, Normal: Skin and Normal: Neurological Plan Diagnosis/Plan: Unchanged I have reviewed the history and physical and performed a pertinent physical examination on my patient. No changes have occurred unless specified. Time Spent With Patient Time: Total time managing care of this patient today ____ minutes.
[2023-09-07] MEDS: Lactated Ringers 1,000 ML 100 ML IVCONT (10:12)
[2023-09-07 10:37] LABS: Glucose, Whole Blood 208 mg/dL (60-115)
--- NOTE | 2023-09-07 11:34 | P.BOP_ITS ---
Brief Operative Note Date of Service: 09/07/23 Pre-op diagnosis: screening Post-op diagnosis: same Surgeon: Roderick Edward MD Was an Supervisor Hydrochloric Area used for this Procedure?: No Estimated blood loss (mL): 2 Pathology: other Condition: stable Disposition: PACU
[2023-09-07 11:36] VITALS: BP 100/30; PULSE 69; RESP 12; TEMP 36.3; O2SAT 96
[2023-09-07 11:50] VITALS: BP 122/55; PULSE 75; RESP 16; TEMP 36.1; O2SAT 97
--- NOTE | 2023-09-07 13:06 | OP_ITS ---
DATE OF SERVICE: 09/07/2023 SURGEON: Roderick Edward MD INDICATIONS: Colon cancer screening and prior history of adenomatous colon polyps. PREOPERATIVE DIAGNOSIS: POSTOPERATIVE DIAGNOSIS: PROCEDURE PERFORMED: Colonoscopy to the neoterminal ileum with biopsy and snare polypectomy. ESTIMATED BLOOD LOSS: COMPLICATIONS: ANESTHESIA: Monitored anesthesia care. ASSISTANTS: SPECIMENS: DESCRIPTION OF PROCEDURE: A history and physical was performed. The risks and benefits of the procedure were explained to the patient. Informed consent was obtained. The patient was placed in the left lateral decubitus position. A digital rectal exam was performed and was found to be normal. The Olympus pediatric video colonoscope was introduced into the rectum and advanced to the ileocolonic anastomosis. Examination was performed. The scope was removed. He tolerated the procedure well and was returned to the recovery area in stable condition. FINDINGS: The neoterminal ileum was normal. There was a widely patent ileocolonic anastomosis at about 65 cm. This showed no recurrence of any polypoid tissue at the level of the anastomosis. There was a small polyp located in the right colon. This measured less than 5 mm and was removed with a biopsy forceps. Two other polyps were identified. These measured approximately 6 mm and were removed with a cold snare. These were located at 45 cm and in the rectum. No other polyps were identified. Retroflexed examination showed small internal hemorrhoids. The quality of prep was good. IMPRESSION: Colon polyps. RECOMMENDATION: Follow up the biopsy results. MD ELI Maria/JOHNL / [id number]
== END 2023-09-07 12:35 | disposition home or self-care (01) ==
PROVIDERS: Visit Provider Internal Medicine Gastroenterology
PROC: 0DJD8ZZ Inspection of Lower Intestinal Tract, Via Natural or Artificial Opening Endoscopic (ICD-10-PCS; CPT 45378; principal; 2023-09-07 10:40)
PROC: 0DBE8ZZ Excision of Large Intestine, Via Natural or Artificial Opening Endoscopic (ICD-10-PCS; CPT 45385; 2023-09-07 10:40)
DX: Z12.11 Encounter for screening for malignant neoplasm of colon (principal); D12.2 Benign neoplasm of ascending colon; D12.6 Benign neoplasm of colon, unspecified; D12.8 Benign neoplasm of rectum; K64.8 Other hemorrhoids; Z86.010 Personal history of colon polyps; K21.9 Gastro-esophageal reflux disease without esophagitis; E11.22 Type 2 diabetes mellitus with diabetic chronic kidney disease; I12.9 Hypertensive chronic kidney disease with stage 1 through stage 4 chronic kidney disease, or unspecified chronic kidney disease; N18.9 Chronic kidney disease, unspecified; I25.10 Atherosclerotic heart disease of native coronary artery without angina pectoris; Z79.4 Long term (current) use of insulin; Z79.899 Other long term (current) drug therapy; Z98.0 Intestinal bypass and anastomosis status; Z88.5 Allergy status to narcotic agent
CPT/HCPCS: 45385; 45380; 82947; 88305; J2704

== ENCOUNTER 2023-12-27 10:48 | Outpatient (REF) | payer OTHER, SELFPAY ==
--- NOTE | ~2023-12-27 | XR_ITS ---
EXAMINATION: XR LUMBAR SPINE CLINICAL INFORMATION: Low back pain. COMPARISON: X-ray 04/11/2018. TECHNIQUE: 5 views of the lumbar spine. FINDINGS: Redemonstrated is transitional anatomy. For the purpose of this report, there are hypoplastic ribs in the lowermost thoracic type segment, and there are 5 nonrib-bearing lumbar type vertebral bodies. Stable grade 1 retrolisthesis of L2 on L3. Moderate disc degeneration with disc height loss and endplate osteophytes at L2-L3, L3-L4, L4-L5. Spondylosis to a lesser degree at the other levels. Multilevel facet degeneration. No evidence of acute fracture. Surgical clips right abdomen. Nonobstructive bowel gas pattern. Mild bilateral hip joint arthritis. Moderate symphysis pubis degeneration. XR/XR lumbar spine 4V min IMPRESSION: Moderate lumbar spondylosis, some interval progression as compared to previous. Electronically signed by: Jonny Quispe MD 12/27/2023 05:01 PM EDT
== END 2023-12-27 10:49 | disposition home or self-care (01) ==
LOC: HO.HHCX 10:48
PROVIDERS: Visit Provider Family Medicine
DX: M54.42 Lumbago with sciatica, left side (principal); M54.41 Lumbago with sciatica, right side
CPT/HCPCS: 72110

== ENCOUNTER 2024-03-04 13:31 | Outpatient (REF) | payer OTHER, SELFPAY ==
--- OUTSIDE RECORDS SUMMARY | 2024-03-05 21:42 | XMS_ITS ---
Author Name [facility] Organization Unknown Problems Problem Status Onset Date Problem Type Date of Resoluti on Source Complication of transplanted kidney, unspecified complication active [facility]
== END 2024-03-04 13:32 | disposition home or self-care (01) ==
LOC: HO.MRI 13:31
PROVIDERS: PCP Family Medicine; Visit Provider Family Medicine
DX: Z13.89 Encounter for screening for other disorder (principal)

== ENCOUNTER 2024-04-30 09:37 | Outpatient (REF) | payer OTHER, SELFPAY ==
--- OUTSIDE RECORDS SUMMARY | 2024-04-30 10:09 | XMS_ITS | Encounter Summary ---
Author Organization [facility], Address [address] [place] [address] Phone Care Team Providers Care Quantitative Researcher Name Role Phone ArsenBrittney Primary Care Provider Unava ilable Encounter Details Date Type Department Care Team (Late Contact Info) Description 05/10/2021 Documentation Only [facility] [address] [place] [address] Yolanda Schwab [place] [address] [place] [address] Social History Tobacco Use Types Packs/Day Years Used Date Smoking Tobacco: Never Alcohol Use Standard Drinks/Week Comments No 0 (1 standard drink = 0.6 oz pur e alcohol) Sex and Gender Information Value Date Recorded Sex Assigned at Not on file Legal Sex Male 4:35 PM EST Gender Identity Not on file Sexual Orientation Not on file documented as of this encounter Plan of Treatment Upcoming Encounters Date Type Department Care Team (Late Contact Info) Description 05/07/2024 9:30 AM EST Office Visit [facility] [address] [place] [address] Robinson Hernandez MD [address] [place] [address] 08/26/2024 9:30 AM EDT Office Visit [facility], - [facility] [address] [place] [place] [address] Kulwant Harris MD [address] [place] [place] [address] documented as of this encounter Visit Diagnoses Not on filedocumented in this encounter Care Teams Quantitative Researcher Relationship Specialty Start Date End Date Brittney Leger DO [address] [place] [address] PCP - General Family Medicine 10/20/19 documented as of this encounter
--- OUTSIDE RECORDS SUMMARY | 2024-04-30 10:09 | XMS_ITS | Encounter Summary ---
Author Organization [facility] Address [address] [place] [address] Phone Care Team Providers Care Icer Machine Operator Name Role Phone ArsenBrittney Primary Care Provider Unava ilable Encounter Details Date Type Department Care Team ([facility] Contact Info) Description 02/23/2022 Documentation Only [facility] [address] [place] [address] Dale Figueredo MD [address] [place] [address] [place] [address] Social History Tobacco Use Types Packs/Day Years Used Date Smoking Tobacco: Never Smokeless Tobacco: Never Alcohol Use Standard Drinks/Week Comments Never 0 (1 standard drink = 0.6 oz pur e alcohol) Sex and Gender Information Value Date Recorded Sex Assigned at Not on file Legal Sex Male 4:35 PM EST Gender Identity Not on file Sexual Orientation Not on file COVID-19 Exposure Response Date Recorded In the last 10 days, have yo u been in contact with someone who was confirmed or suspected to have Coronavirus/COVID-19? No / Unsure 02/10/2022 9:25 AM EST documented as of this encounter Plan of Treatment Upcoming Encounters Date Type Department Care Team (Late Contact Info) Description 05/07/2024 9:30 AM EST Office Visit [facility] [place] [address] [place] [address] Robinson Hernandez MD [address] [facility] [place] [address] 08/26/2024 9:30 AM EDT Office Visit [facility] [place] - [facility] [address] [place] [address] Kulwant Harris MD [address] [place] [place] [address] documented as of this encounter Visit Diagnoses Not on filedocumented in this encounter Care Teams Icer Machine Operator Relationship Specialty Start Date End Date Brittney Leger DO [address] [place] [address] PCP - General Family Medicine 10/20/19 documented as of this encounter
--- OUTSIDE RECORDS SUMMARY | 2024-04-30 10:09 | XMS_ITS | Encounter Summary ---
Author Organization [facility] [place], Address [address] [place] [address] Phone Care Team Providers Care Bail Agent Name Role Phone SueBrittney hernandez Primary Care Provider Unava ilable Encounter Details Date Type Department Care Team (Late Contact Info) Description 03/15/2021 Documentation Only [facility] [address] [place] [address] Dale Figueredo MD [address] [facility] [place] [address] Social History Tobacco Use Types [...] Visit [facility] [place] [address] [place] [address] Robinson Hernandez MD [address] [facility] [place] [address] 08/26/2024 9:30 AM EDT Office Visit [facility] [place], - [facility] Access Center [address] [place] [address] Kulwant Harris MD [address] [place] [address] documented as of this encounter Visit Diagnoses Not on filedocumented in this encounter Care Teams Bail Agent Relationship Specialty Start Date End Date Brittney Leger DO [address] [place] [address] PCP - General Family Medicine 10/20/19 documented as of this encounter
--- OUTSIDE RECORDS SUMMARY | 2024-04-30 10:09 | XMS_ITS | Encounter Summary ---
Author Organization [facility] [place], Address [address] [place] [address] Phone Care Team Providers Care Field Service Analyst Name Role Phone SueBrittney hernandez Primary Care Provider Unava ilable Encounter Details Date Type Department Care Team (Late Contact Info) Description 04/05/2021 Documentation Only [facility] [address] [place] [address] Dale Figueredo MD [address] [facility] [place] [address] Social History Tobacco Use Types [...] Visit [facility] [place] [address] [place] [address] Robinson Hernandez MD [address] [facility] [place] [address] 08/26/2024 9:30 AM EDT Office Visit [facility] [place], - Vascular Access Center [address] [place] [place] [address] Kulwant Harris MD [address] [place] [address] documented as of this encounter Visit Diagnoses Not on filedocumented in this encounter Care Teams Field Service Analyst Relationship Specialty Start Date End Date Brittney Leger DO [address] [place] [address] PCP - General Family Medicine 10/20/19 documented as of this encounter
--- OUTSIDE RECORDS SUMMARY | 2024-04-30 10:09 | XMS_ITS | Encounter Summary ---
Author Organization [facility] [place], Address [address] [place] [address] Phone Care Team Providers Care Dispensing Lead Name Role Phone ArsenBrittney Primary Care Provider Unava ilable Encounter Details Date Type Department Care Team (Late Contact Info) Description 03/13/2022 Documentation Only [facility] [address] [place] [address] Robinson Hernandez MD [address] [place] [address] [place] [address] Social History Tobacco Use Types [...] Visit [facility] [place] [address] [place] [address] Robinson Hernandez MD [address] [place] [address] [place] [address] 08/26/2024 9:30 AM EDT Office Visit [facility] [place], [facility] Vascular Access Center [address] [place] [address] Kulwant Harris MD [address] [place] [address] documented as of this encounter Visit Diagnoses Not on filedocumented in this encounter Care Teams Dispensing Lead Relationship Specialty Start Date End Date Brittney Leger DO [address] [place] [address] PCP - General Family Medicine 10/20/19 documented as of this encounter
--- OUTSIDE RECORDS SUMMARY | 2024-04-30 10:09 | XMS_ITS | Encounter Summary ---
Author Organization [facility] [place], Address [address] [place] [address] Phone Care Team Providers Care Shuttle Preparation Supervisor Name Role Phone ArsenBrittney Primary Care Provider Unava ilable Encounter Details Date Type Department Care Team (Late Contact Info) Description 05/10/2021 Documentation Only [facility] [address] [place] [address] Yolanda Schwab [place] [address] [place] [address] Social History Tobacco Use Types [...] Visit [facility] [place] [address] [place] [place] [address] Robinson Hernandez MD [address] [facility] [place] [address] 08/26/2024 9:30 AM EDT Office Visit [facility] [place], - Vascular Access Center [address] [place] [address] Kulwant Harris MD [address] [place] [address] documented as of this encounter Visit Diagnoses Not on filedocumented in this encounter Care Teams Shuttle Preparation Supervisor Relationship Specialty Start Date End Date Brittney Leger DO [address] [place] [address] PCP - General Family Medicine 10/20/19 documented as of this encounter
--- OUTSIDE RECORDS SUMMARY | 2024-04-30 10:09 | XMS_ITS | Encounter Summary ---
Author Organization [facility] Address [address] [place] [address] Phone Care Team Providers Care Cipher Expert Name Role Phone Jolnata Legerfer Primary Care Provider Unava ilable Encounter Details Date Type Department [facility] ([facility] Contact [facility] Description 01/06/2022 Documentation Only [facility] [address] [place] [address] Feli Yip [address] [place] [address] Social History Tobacco Use Types [...] suspected to have Coronavirus/COVID-19? No / Unsure 01/03/2022 2:02 PM EDT documented as of this encounter Plan of Treatment Upcoming Encounters Date Type Department Care Team (Late Contact Info) Description 05/07/2024 9:30 AM EST Office Visit [facility] [place] [address] [place] [address] Robinson Hernandez MD [address] [facility] [place] [address] 08/26/2024 9:30 AM EDT Office Visit [facility] [place], [facility] - Vascular Access Center [address] [place] [address] Kulwant Harris MD [address] [place] [address] documented as of this encounter Visit Diagnoses Not on filedocumented in this encounter Care Teams Cipher Expert Relationship Specialty Start Date End Date Brittney Leger DO [address] [place] [address] PCP - General Family Medicine 10/20/19 documented as of this encounter
--- OUTSIDE RECORDS SUMMARY | 2024-04-30 10:09 | XMS_ITS | Encounter Summary ---
Author Organization [facility] [place], Address [address] [place] [address] Phone Care Team Providers Care Television Picture Tube Rebuilder Name Role Phone ArsenBrittney Primary Care Provider Unava ilable Encounter Details Date Type Department Care Team (Late Contact Info) Description 05/10/2021 Documentation Only [facility] [address] [place] [address] Yolanda Schwab [place] [address] [place] [address] Social History Tobacco Use Types [...] Visit [facility] [place] [address] [place] [place] [address] Robinson Hernandez MD [address] [facility] [place] [address] 08/26/2024 9:30 AM EDT Office Visit [facility] [place], - Vascular Access Center [address] [place] [address] Kulwant Harris MD [address] [place] [address] documented as of this encounter Visit Diagnoses Not on filedocumented in this encounter Care Teams Television Picture Tube Rebuilder Relationship Specialty Start Date End Date Brittney Leger DO [address] [place] [address] PCP - General Family Medicine 10/20/19 documented as of this encounter
--- OUTSIDE RECORDS SUMMARY | 2024-04-30 10:09 | XMS_ITS | Encounter Summary ---
Author Organization [facility] [place], Address [address] [place] [address] Phone Care Team Providers Care Closing Machine Operator Name Role Phone ArsenBrittney Primary Care Provider Unava ilable Encounter Details Date Type Department Care Team (Late Contact Info) Description 05/12/2021 Documentation Only [facility] [address] [place] [address] Yolanda Schwab [place] [address] [place] [address] Social History Tobacco Use Types [...] Visit [facility] [place] [address] [place] [address] Robinson Hernandez MD [address] [facility] [place] [address] 08/26/2024 9:30 AM EDT Office Visit [facility] [place], - Vascular Access Center [address] [place] [address] Kulwant Harris MD [address] [place] [address] documented as of this encounter Visit Diagnoses Not on filedocumented in this encounter Care Teams Closing Machine Operator Relationship Specialty Start Date End Date Brittney Leger DO [address] [place] [address] PCP - General Family Medicine 10/20/19 documented as of this encounter
--- OUTSIDE RECORDS SUMMARY | 2024-04-30 10:09 | XMS_ITS | Encounter Summary ---
Author Organization [facility], Address [address] [place] [address] Phone Care Team Providers Care Bowling Ball Mold Assembler Name Role Phone Brittney Leger DO Primary Care Provider Unava ilable Encounter Details Date Type Department Care Team (Late Contact Info) Description 04/02/2024 Telephone [facility] [place], [address] [place] [address] Meli Ramirez [place] [address] [place] [address] Social History Tobacco Use Types Packs/Day Years Used Date Smoking Tobacco: Never Smokeless Tobacco: Never Alcohol Use Standard Drinks/Week Comments Not Currently 0 (1 standard drink = 0.6 oz pur e alcohol) Sex and Gender Information Value Date Recorded Sex Assigned at Not on file Legal Sex Male 4:35 PM EST Gender Identity Not on file Sexual Orientation Not on file documented as of this encounter Miscellaneous Notes * Telephone Encounter - Meli Ramirez [place] - 04/02/2024 12:59 PM EST Dixie from [facility] ctr calling in to report that the pt is not on trulicity, was on ozempicand today was changed to mounjaro 5mg she can be reached at [phone] documented in this encounter Plan of Treatment Upcoming Encounters Date Type Department Care Team (Late Contact Info) Description 05/07/2024 9:30 AM EST Office Visit [facility] [address] [place] [address] Robinson Hernandez MD [address] [place] [address] 08/26/2024 9:30 AM EDT Office Visit [facility] [place], [facility] - Vascular Access Center [address] [place] [address] Kulwant Harris MD [address] [place] [address] documented as of this encounter Visit Diagnoses Not on filedocumented in this encounter Care Teams Bowling Ball Mold Assembler Relationship Specialty Start Date End Date Brittney Leger DO [address] [place] [address] PCP - General Family Medicine 10/20/19 documented as of this encounter
--- OUTSIDE RECORDS SUMMARY | 2024-04-30 10:10 | XMS_ITS | Encounter Summary ---
Author Organization [facility] [place], Address [address] [place] [address] Phone Care Team Providers Care Watch Mechanic Name Role Phone JohnnaBrittney gutierres Primary Care Provider Unava ilable Encounter Details Date Type Department Care Team (Late Contact Info) Description 11/04/2021 Orders Only [facility] [place], [address] [place] [address] Dale Figueredo MD [address] [facility] [place] [address] Stage 5 chronic kidney disease (HCC); Anemia of chronic renal failure Social History Tobacco Use Types Packs/Day Years [...] suspected to have Coronavirus/COVID-19? No / Unsure 10/21/2021 8:58 AM EDT documented as of this encounter Plan of Treatment Upcoming Encounters Date Type Department Care Team (Late Contact Info) Description 05/07/2024 9:30 AM EST Office Visit [facility] [place] [address] [place] [address] Robinson Hernandez MD [address] [facility] [place] [address] 08/26/2024 9:30 AM EDT Office Visit [facility] [place] - V[facility] Access Center [address] [place] [address] Kulwant Harris MD [address] [place] [address] documented as of this encounter Visit Diagnoses Diagnosis Stage 5 chronic kidney disease (HCC) Anemia of chronic renal failure documented in this encounter Care Teams Watch Mechanic Relationship Specialty Start Date End Date Brittney Leger DO [address] [place] [address] PCP - General Family Medicine 10/20/19 documented as of this encounter
--- OUTSIDE RECORDS SUMMARY | 2024-04-30 10:10 | XMS_ITS | Encounter Summary ---
Author Organization [facility] Address [address] [place] [address] Phone Care Team Providers Care Shank Paperer Name Role Phone Arsen Brittney Primary Care Provider Hugo ilnicholas Encounter Details Date Type Department Care Team (Late Contact Info) Description 08/26/2021 Documentation Only [facility] [address] [place] [place] [address] Robinson Hernandez MD [address] [place] [address] [place] [address] Social History Tobacco Use Types [...] suspected to have Coronavirus/COVID-19? No / Unsure 08/26/2021 9:25 AM EDT documented as of this encounter Plan of Treatment Upcoming Encounters Date Type Department Care Team (Late Contact Info) Description 05/07/2024 9:30 AM EST Office Visit [facility] [address] [place] [address] Robinson Hernandez MD [address] [place] [address] [place] [address] 08/26/2024 9:30 AM EDT Office Visit [facility], [facility] - Vascular Access Center [address] [place] [address] Kulwant Harris MD [address] [place] [address] documented as of this encounter Visit Diagnoses Not on filedocumented in this encounter Care Teams Shank Paperer Relationship Specialty Start Date End Date Brittney Leger DO [address] [place] [address] PCP - General Family Medicine 10/20/19 documented as of this encounter
--- OUTSIDE RECORDS SUMMARY | 2024-04-30 10:10 | XMS_ITS | Encounter Summary ---
Author Organization [facility] [place], Address [address] [place] [address] Phone Care Team Providers Care Licensed Loan Officer Name Role Phone JohnnaBrittney gutierres Primary Care Provider Unava ilable Encounter Details Date Type Department Care Team (Late Contact Info) Description 09/09/2021 Orders Only [facility] [place], [address] [place] [address] Dale Figueredo MD [address] [facility] [place] [address] Stage 5 chronic kidney disease [...] suspected to have Coronavirus/COVID-19? No / Unsure 09/09/2021 8:35 AM EDT documented as of this encounter Plan of Treatment Upcoming Encounters Date Type Department Care Team (Late Contact Info) Description 05/07/2024 9:30 AM EST Office Visit [facility] [place] [address] [place] [address] Robinson Hernandez MD [address] [facility] [place] [address] 08/26/2024 9:30 AM EDT Office Visit [facility] [place] - V[facility] Access Center [address] [place] [address] Kulwant Harris MD [address] [place] [place] [address] documented as of this encounter Visit Diagnoses Diagnosis Stage 5 chronic kidney disease (HCC) Anemia of chronic renal failure documented in this encounter Care Teams Licensed Loan Officer Relationship Specialty Start Date End Date Brittney Leger DO [address] [place] [address] PCP - General Family Medicine 10/20/19 documented as of this encounter
--- OUTSIDE RECORDS SUMMARY | 2024-04-30 10:10 | XMS_ITS | Encounter Summary ---
Author Organization [facility] Address [address] [place] [address] Phone Care Team Providers Care Nailing Machine Feeder Name Role Phone Jolanta Legerfer Primary Care Provider Unava ilable Encounter Details Date Type Department Care Team ([facility] Contact Info) Description 12/26/2021 Documentation Only [facility] [address] [place] [address] Feli Yip [address] [place] [address] Social History Tobacco Use Types [...] suspected to have Coronavirus/COVID-19? No / Unsure 12/21/2021 9:11 AM EDT documented as of this encounter Plan of Treatment Upcoming Encounters Date Type Department Care Team (Late Contact Info) Description 05/07/2024 9:30 AM EST Office Visit [facility] [place] [address] [place] [address] Robinson Hernandez MD [address] [facility] [place] [address] 08/26/2024 9:30 AM EDT Office Visit [facility] [place], [facility] - Vascular Access Center [address] [place] [address] Kulwant Harris MD [address] [place] [place] [address] documented as of this encounter Visit Diagnoses Not on filedocumented in this encounter Care Teams Nailing Machine Feeder Relationship Specialty Start Date End Date Brittney Leger DO [address] [place] [address] PCP - General Family Medicine 10/20/19 documented as of this encounter
--- OUTSIDE RECORDS SUMMARY | 2024-04-30 10:10 | XMS_ITS | Encounter Summary ---
Author Organization [facility] [place], Address [address] [place] [address] Phone Care Team Providers Care Events Specialist Name Role Phone SueBrittney hernandez Primary Care Provider Unava ilable Encounter Details Date Type Department Care Team (Late Contact Info) Description 04/19/2021 Documentation Only [facility] [address] [place] [address] Dale Figueredo MD [address] [facility] [place] [address] Social History Tobacco Use Types [...] Visit [facility] [place] [address] [place] [address] Robinson Hernandez MD [address] [facility] [address] [place] [address] 08/26/2024 9:30 AM EDT Office Visit [facility] [place], - Vascular Access Center [address] [place] [address] Kulwant Harris MD [address] [place] [address] documented as of this encounter Visit Diagnoses Not on filedocumented in this encounter Care Teams Events Specialist Relationship Specialty Start Date End Date Brittney Leger DO [address] [place] [address] PCP - General Family Medicine 10/20/19 documented as of this encounter
--- OUTSIDE RECORDS SUMMARY | 2024-04-30 10:10 | XMS_ITS | Encounter Summary ---
Author Organization [facility] [place], Address [address] [place] [address] Phone Care Team Providers Care Roofer Assistant Name Role Phone Arsen Brittney Primary Care Provider Unava ilable Encounter Details Date Type Department Care Team (Late Contact Info) Description 12/25/2023 Documentation Only [facility] [address] [place] [address] [place], [place] [address] [place] [address] Social History Tobacco Use Types [...] Visit [facility] [place] [address] [place] [address] Robinson Hernandez MD [address] [place] [address] 08/26/2024 9:30 AM EDT Office Visit [facility] [place], [facility] Vascular Access Center [address] [place] [address] Kulwant Harris MD [address] [place] [address] documented as of this encounter Visit Diagnoses Not on filedocumented in this encounter Care Teams Roofer Assistant Relationship Specialty Start Date End Date Brittney Leger DO [address] [place] [address] PCP - General Family Medicine 10/20/19 documented as of this encounter
--- OUTSIDE RECORDS SUMMARY | 2024-04-30 10:10 | XMS_ITS | Encounter Summary ---
Author Organization [facility] [place], Address [address] [place] [address] Phone Care Team Providers Care Orthopedic Tech Name Role Phone Arsen Brittney Primary Care Provider Unava ilable Encounter Details Date Type Department Care Team (Late Contact Info) Description 08/31/2023 Documentation Only [facility] [address] [address] [place], [place] [address] [place] [address] Social History Tobacco Use Types [...] Visit [facility] [place] [address] [address] Robinson Hernandez MD [address] [place] [address] 08/26/2024 9:30 AM EDT Office Visit [facility] [place], [facility] Vascular Access Center [address] [place] [address] Kulwant Harris MD [address] [place] [address] documented as of this encounter Visit Diagnoses Not on filedocumented in this encounter Care Teams Orthopedic Tech Relationship Specialty Start Date End Date Brittney Leger DO [address] [place] [address] PCP - General Family Medicine 10/20/19 documented as of this encounter
--- OUTSIDE RECORDS SUMMARY | 2024-04-30 10:10 | XMS_ITS | Encounter Summary ---
Author Organization [facility] Address [address] [facility] [address] [place] [address] Phone Care Team Providers Care Brick Picker Name Role Phone Brittney Leger DO Primary Care Provider Unava ilable Reason for Visit * Reason Comments Med Refill Encounter Details Date Type Department Care Team ([facility] Contact Info) Description 10/13/2022 Refill [facility] [place] [address] [facility] [address] [place] [address] Taylor Sawyer MD Social History Tobacco Use Types Packs/Day Years [...] Upcoming Encounters Date Type Department Care Team ([facility] Contact Info) Description 05/07/2024 9:30 AM EST Office Visit [facility] [address] [place] [address] Robinson Hernandez MD [address] [place] [place] [address] 08/26/2024 9:30 AM EDT Office Visit [facility] [place] Center [address] [place] [address] Kulwant Harris MD [address] [place] [address] documented as of this encounter Visit Diagnoses Not on filedocumented in this encounter Care Teams Brick Picker Relationship Specialty Start Date End Date Brittney Leger DO [address] [place] [address] PCP - General Family Medicine 10/20/19 documented as of this encounter
--- OUTSIDE RECORDS SUMMARY | 2024-04-30 10:10 | XMS_ITS | Encounter Summary ---
Author Organization [facility] Address [address] [place] [address] Phone Care Team Providers Care Room Manager Name Role Phone Jolanta Legerfer Primary Care Provider Unava ilable Encounter Details Date Type Department Care Team ([facility] Contact Info) Description 12/23/2021 Documentation Only [facility] [address] [place] [address] Feli Yip [address] [place] [address] Social History Tobacco Use Types [...] Visit [facility] [place] [address] [place] [address] Robinson Hernandez MD [address] [place] [address] 08/26/2024 9:30 AM EDT Office Visit [facility] [place] - V[facility] Center [address] [place] [address] Kulwant Harris MD [address] [place] [phone] documented as of this encounter Visit Diagnoses Not on filedocumented in this encounter Care Teams Room Manager Relationship Specialty Start Date End Date Brittney Leger DO [address] [place] [address] PCP - General Family Medicine 10/20/19 documented as of this encounter
--- OUTSIDE RECORDS SUMMARY | 2024-04-30 10:10 | XMS_ITS | Encounter Summary ---
Author Organization [facility] [place] Address [address] [facility] 200 [place] [address] Phone Care Team Providers Care Rod Pointer Name Role Phone Brittney Leger DO Primary Care Provider Unava ilable Reason for Visit * Reason Comments Med Refill Encounter Details Date Type Department Care Team ([facility] Contact Info) Description 09/14/2022 Refill [facility] [address] [facility] [address] [place] [address] Sharath Wetzel MD Social History Tobacco Use Types Packs/Day [...] Upcoming Encounters Date Type Department Care Team ([facility] Contact Info) Description 05/07/2024 9:30 AM EST Office Visit [facility] [address] [place] [address] Robinson Hernandez MD [address] [facility] [place] [address] 08/26/2024 9:30 AM EDT Office Visit [facility] [place] - V[facility] Access Center [address] [place] [address] Kulwant Harris MD [address] [place] [address] documented as of this encounter Visit Diagnoses Not on filedocumented in this encounter Care Teams Rod Pointer Relationship Specialty Start Date End Date Brittney Leger DO [address] [place] [address] PCP - General Family Medicine 10/20/19 documented as of this encounter
--- OUTSIDE RECORDS SUMMARY | 2024-04-30 10:10 | XMS_ITS | Encounter Summary ---
Author Organization [facility] [place], Address [address] [place] [address] Phone Care Team Providers Care Supervisor Rough End Name Role Phone ArsenBrittney Primary Care Provider Unava ilable Encounter Details Date Type Department Care Team (Late Contact Info) Description 09/01/2021 Documentation Only [facility] [address] [address] Dale Figueredo MD [address] [place] [address] [place] [address] Social History Tobacco Use Types [...] Visit [facility] [place] [address] [place] [address] Robinson Hernandez MD [address] [facility] [place] [address] 08/26/2024 9:30 AM EDT Office Visit [facility] [place] - V[facility] Access Center [address] [place] [address] Kulwant Harris MD [address] [place] [address] documented as of this encounter Visit Diagnoses Not on filedocumented in this encounter Care Teams Supervisor Rough End Relationship Specialty Start Date End Date Brittney Leger DO [address] [place] [address] PCP - General Family Medicine 10/20/19 documented as of this encounter
--- OUTSIDE RECORDS SUMMARY | 2024-04-30 10:10 | XMS_ITS | Encounter Summary ---
Author Organization [facility] Address [address] [place] [address] Phone Care Team Providers Care Business Systems Consultant Name Role Phone Brittney Leger DO Primary Care Provider Unava ilable Encounter Details Date Type Department Care Team (Late Contact Info) Description 06/22/2020 Orders Only [facility] [address] [place] [address] Provider, MD Louise [address] [place] [address] Social History Tobacco Use Types Packs/Day Years [...] Visit [facility] [place] [address] [place] [address] Robinson Hernandez MD [address] [address] [place] [address] 08/26/2024 9:30 AM EDT Office Visit [facility] [place], [facility] - V[facility] Access Center [address] [place] [address] Kulwant Harris MD [address] [place] [address] documented as of this encounter Procedures Procedure Name Priority Date/Time Associated Diagnosis Comments EXT RESULT ENTRY Routine 06/22/2020 documented in this encounter Results * EXT RESULT ENTRY (06/22/2020) us Historical Provider LAB BLOOD ORDERABLES Carolynn l Result documented in this encounter Visit Diagnoses Not on filedocumented in this encounter Care Teams Business Systems Consultant Relationship Specialty Start Date End Date Brittney Leger DO [address] [place] [address] PCP - General Family Medicine 10/20/19 documented as of this encounter
--- OUTSIDE RECORDS SUMMARY | 2024-04-30 10:10 | XMS_ITS | Encounter Summary ---
Author Organization [facility] [place], Address [address] [place] [address] Phone Care Team Providers Care Food Service Lead Name Role Phone ArsenBrittney Primary Care Provider Unava ilable Encounter Details Date Type Department Care Team (Late Contact Info) Description 11/10/2021 Documentation Only [facility] [address] [place] [address] Dale Figueredo MD [address] [place] [address] [place] [address] Social History Tobacco Use Types [...] Visit [facility] [place] [address] [place] [address] Robinson Hernandez MD [address] [facility] [address] [place] [address] 08/26/2024 9:30 AM EDT Office Visit [facility] [place] - V[facility] Center [address] [place] [phone] Kulwant Harris MD [address] [place] [address] documented as of this encounter Visit Diagnoses Not on filedocumented in this encounter Care Teams Food Service Lead Relationship Specialty Start Date End Date Brittney Leger DO [address] [place] [address] PCP - General Family Medicine 10/20/19 documented as of this encounter
--- OUTSIDE RECORDS SUMMARY | 2024-04-30 10:10 | XMS_ITS | Encounter Summary ---
Author Organization [facility] [place], Address [address] [place] [address] Phone Care Team Providers Care Shoe Puller Name Role Phone ArsenBrittney Primary Care Provider Unava ilable Encounter Details Date Type Department Care Team (Late Contact Info) Description 11/10/2021 Documentation Only [facility] [address] [place] [address] Dale Figueredo MD [address] [place] [address] [place] [address] Social History Tobacco Use Types [...] Visit [facility] [place] [address] [place] [address] Robinson Hernandez MD [address] [facility] [place] [address] 08/26/2024 9:30 AM EDT Office Visit [facility] [place], [facility] - Vascular Access Center [address] [place] [address] Kulwant Harris MD [address] [place] [address] documented as of this encounter Visit Diagnoses Not on filedocumented in this encounter Care Teams Shoe Puller Relationship Specialty Start Date End Date Brittney Leger DO [address] [place] [address] PCP - General Family Medicine 10/20/19 documented as of this encounter
--- OUTSIDE RECORDS SUMMARY | 2024-04-30 10:10 | XMS_ITS | Encounter Summary ---
Author Organization [facility] [place], Address [address] [place] [address] Phone Care Team Providers Care Supervisor Kennel Name Role Phone JhonnaBrittney gutierres Primary Care Provider Unava ilable Reason for Visit * Reason Comments Med Refill Encounter Details Date Type Department Care Team (Late Contact Info) Description 12/01/2022 Refill [facility] [address] [place] [address] Juanito Tinoco PA Social History Tobacco Use Types Packs/Day Years [...] Visit [facility] [place] [address] [place] [address] Robinson Hernandez MD [address] [facility] [place] [address] 08/26/2024 9:30 AM EDT Office Visit [facility] Vascular Access Center [address] [address] Kulwant Harris MD [address] [place] [address] documented as of this encounter Visit Diagnoses Not on filedocumented in this encounter Care Teams Supervisor Kennel Relationship Specialty Start Date End Date Brittney Leger DO [address] [place] [address] PCP - General Family Medicine 10/20/19 documented as of this encounter
--- OUTSIDE RECORDS SUMMARY | 2024-04-30 10:10 | XMS_ITS | Encounter Summary ---
Author Organization [facility] [place], Address [address] [place] [address] Phone Care Team Providers Care Administrative Nursing Supervisor Name Role Phone JohnnaBrittney gutierres Primary Care Provider Unava ilable Encounter Details Date Type Department Care Team (Late Contact Info) Description 10/07/2021 Orders Only [facility] [place], [address] [place] [address] Dale Figueredo MD [address] [facility] [place] [address] Stage 5 chronic kidney disease [...] suspected to have Coronavirus/COVID-19? No / Unsure 10/07/2021 8:41 AM EDT documented as of this encounter Plan of Treatment Upcoming Encounters Date Type Department Care Team (Late Contact Info) Description 05/07/2024 9:30 AM EST Office Visit [facility] [place] [address] [place] [address] Robinson Hernandez MD [address] [facility] [place] [place] [address] 08/26/2024 9:30 AM EDT Office Visit [facility] - Vascular Access Center [address] [place] [address] Kulwant Harris MD [address] [place] [address] documented as of this encounter Procedures Procedure Name Priority Date/Time Associated Diagnosis Comments RENAL FUNCTION PANEL Routine 12/12/2021 10:45 AM EDT Stage 5 chronic kidney disease (HCC) Anemia of chronic renal failure documented in this encounter Results * (ABNORMAL) Renal Function Panel (12/12/2021 10:45 AM EDT) Glucose 234(H) (70-99) MG/DL [facility] BUN 60(H) (8-23) MG/DL [facility] Creatinine 5.8(H) (0.7-1.2) MG/DL [facility] Sodium 139 (133-145) MMOL/L [facility] Potassium 4.5 (3.6-5.2) MMOL/L [facility] Chloride 100 (98-107) MMOL/L [facility] Bicarbonate (CO2) 26 (22-29) MMOL/L [facility] Anion Gap 13 (4-17) [facility] Albumin 4.2 (3.4-4.8) GM/DL [facility] Calcium 10.6(H) (8.6-10.5) MG/DL [facility] Phosphorus, Serum 4.6(H) (2.5-4.5) MG/DL [facility] Est GFR Non 10 ML/MIN/1.7 3 M2 [facility] Comment: Creatinine based estimated glomerular filtration (eGFR) in adults is calculated using the National Kid[employer] Foundation recommended 2020 CKD-EPI equation. Estimates GFR from serum creatinine, age and sex. Testing performed or reported by [facility], a Service of [facility], [address] [place] [address] Sepideh Kiran MD, Licensed Physical Therapist [facility]# [id number] Blood (Blood, Venous) 12/12/2021 10:45 AM EDT 12/12/2021 10:47 AM EDT us Dale Figueredo MD LAB BLOOD ORDERABLES Final Resul t [facility] documented in this encounter Visit Diagnoses Diagnosis Stage 5 chronic kidney disease (HCC) Anemia of chronic renal failure documented in this encounter Care Teams Administrative Nursing Supervisor Relationship Specialty Start Date End Date Brittney Leger DO [address] [place] [address] PCP - General Family Medicine 10/20/19 documented as of this encounter
--- OUTSIDE RECORDS SUMMARY | 2024-04-30 10:10 | XMS_ITS | Encounter Summary ---
Author Organization [facility] [place], Address [address] [place] [address] Phone Care Team Providers Care Assistant Elementary Teacher Name Role Phone JohnnaBrittney gutierres Primary Care Provider Unava ilable Encounter Details Date Type Department Care Team ([facility] Contact Info) Description 07/15/2021 Orders Only [facility] [place], [address] [place] [address] Dale Figueredo MD [address] [facility] [address] [place] [address] Stage 5 chronic kidney disease [...] Exposure Response Date Recorded In the last month, have you been in contact with someone who was confirmed or suspected to have Coronavirus / COVID-19? No / Unsure 06/24/2021 11:22 AM EDT documented as of this encounter Plan of Treatment Upcoming Encounters Date Type Department Care Team (Late Contact Info) Description 05/07/2024 9:30 AM EST Office Visit [facility] [place] [address] [place] [address] Robinson Hernandez MD [address] [place] [address] 08/26/2024 9:30 AM EDT Office Visit [facility] [place], [facility] - Vascular Access Center [address] [place] [address] Kulwant Harris MD [address] [place] [address] documented as of this encounter Visit Diagnoses Diagnosis Stage 5 chronic kidney disease (HCC) Anemia of chronic renal failure documented in this encounter Care Teams Assistant Elementary Teacher Relationship Specialty Start Date End Date Brittney Leger DO [address] [place] [address] PCP - General Family Medicine 10/20/19 documented as of this encounter
--- OUTSIDE RECORDS SUMMARY | 2024-04-30 10:10 | XMS_ITS | Encounter Summary ---
Author Organization [facility] [place], Address [address] [place] [address] Phone Care Team Providers Care Correctional Supervising Cook Name Role Phone JohnnaBrittney gutierres Primary Care Provider Unava ilable Encounter Details Date Type Department Care Team (Late Contact Info) Description 08/12/2021 Orders Only [facility] [place], [address] [place] [address] Dale Figueredo MD [address] [facility] [place] [address] Stage 5 chronic kidney disease [...] suspected to have Coronavirus/COVID-19? No / Unsure 08/12/2021 8:41 AM EDT documented as of this encounter Plan of Treatment Upcoming Encounters Date Type Department Care Team (Late Contact Info) Description 05/07/2024 9:30 AM EST Office Visit [facility] [place] [address] [place] [address] Robinson Hernandez MD [address] [facility] [place] [address] 08/26/2024 9:30 AM EDT Office Visit [facility] [place], [facility] - V[facility] Access Center [address] [place] [address] Kulwant Harris MD [address] [place] [place] [address] documented as of this encounter Visit Diagnoses Diagnosis Stage 5 chronic kidney disease (HCC) Anemia of chronic renal failure documented in this encounter Care Teams Correctional Supervising Cook Relationship Specialty Start Date End Date Brittney Leger DO [address] [place] [address] PCP - General Family Medicine 10/20/19 documented as of this encounter
--- OUTSIDE RECORDS SUMMARY | 2024-04-30 10:10 | XMS_ITS | Encounter Summary ---
Author Organization [facility] Address [address] [place] [address] Phone Care Team Providers Care Construction Equipment Operator Name Role Phone Jolanta Legerfer Primary Care Provider Unava ilable Encounter Details Date Type Department Care Team ([facility] Contact Info) Description 07/06/2021 Documentation Only [facility] [address] [place] [address] Feli Yip [address] [place] [address] Social History Tobacco Use Types [...] Visit [facility] [place] [address] [place] [address] Robinson Henrandez MD [address] [facility] [place] [address] 08/26/2024 9:30 AM EDT Office Visit [facility] [place], [facility] - Vascular Access Center [address] [place] [phone] Kulwant Harris MD [address] [place] [address] documented as of this encounter Visit Diagnoses Not on filedocumented in this encounter Care Teams Construction Equipment Operator Relationship Specialty Start Date End Date Brittney Leger DO [address] [place] [address] PCP - General Family Medicine 10/20/19 documented as of this encounter
--- OUTSIDE RECORDS SUMMARY | 2024-04-30 10:11 | XMS_ITS | Clinical Summary ---
Author Organization [facility], Address [address] [place] [address] [place] [address] Phone Care Team Providers Care Membership Coordinator Name Role Phone Brittney Leger DO Primary Care Provider Unava ilable Allergies Active Allergy Reactions Criticality Noted Date Comments Morphine High 07/06/2017 Altered mental status- I get crazy per patient Medications insulin aspart (NovoLOG FLEXPEN) 100 UNIT/ML injection See administration instructions 10 ux breakfast, 12 ux for lunch and dinner Active rosuvastatin (CRESTOR) 20 MG tablet Take 1 tablet by mouth Active omeprazole (PriLOSEC) [address] capsule Take 20 mg by mouth in the morning and 20 mg in the evening. Do not crush or chew. . Active Aspirin Low Dose 81 MG EC tablet Take 81 mg by mouth at bed time 022 Active amLODIPine (NORVASC) 5 MG tablet Take 1 tablet by mouth 1 (one) time each day 023 Active acetaminophen (TYLENOL) 325 MG tablet 022 Active tamsulosin (FLOMAX) 0.4 MG 24 hr capsule Take by mouth at bed time 023 Active carvedilol (COREG) 6.25 MG tablet Take 1 tablet (6.25 mg total) by mouth in the morning and 1 tablet (6.25 mg total) in the evening. Take with meals. 023 Active Trulicity 0.75 MG/0.5ML solution pen-injector Inject 0.75 mg under the skin 024 Active Cyanocobalamin 100 MCG lozenge as directed Orally Active Lantus SoloStar 100 UNIT/ML injection INJECT 36 UNITS SUBCUTANEOUSLY EVERY EVENING. 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,Personal history of immunosuppressive therapy,History of renal transplant,Type 2 diabetes mellitus with diabetic chronic kidney disease (HCC),Hypomagnesemia Take 6 mg by mouth 1 (one) time each day 180 tablet 11 025 2025 Active Active Problems Problem Noted Date Diagnosed Date Stage 3a chronic kidney disease 03/27/2023 Epigastric pain 01/17/2023 01/17/2023 Cataract 09/15/2022 Personal history of immunosuppressive therapy Chronic kidney disease stage 2 07/12/2022 Obstructive sleep apnea 04/18/2022 History of renal transplant 04/18/2022 Iron deficiency anemia 08/08/2021 Gout 07/28/2021 Anemia in chronic kidney disease 06/20/2021 Hypertension 07/06/2017 Overview (01/13/2022): Last Assessment & Plan: His blood pressures excellent on the current medications Type 2 diabetes mellitus 05/27/2015 Resolved Problems Problem Noted Date Diagnosed Date Resolved Date Disorder of male genital organ 07/31/2022 11/01/2022 Benign prostatic hyperplasia 07/31/2022 11/01/2022 Hyperkalemia 07/12/2022 11/01/2022 Tubular adenoma 04/18/2022 11/01/2022 Osteoarthritis 04/18/2022 11/01/2022 Anemia 04/18/2022 07/14/2022 History of partial resection of colon 04/18/2022 07/14/2022 Obese class I 10/06/2021 11/10/2021 Heart valve disorder 07/28/2021 022 Renal osteodystrophy 07/18/2021 023 Gastroesophageal reflux disease 05/26/2021 06/20/2021 Gout 05/26/2021 06/20/2021 Proteinuria 05/26/2021 07/14/2022 Hypervolemia 05/09/2021 06/20/2021 Edema 03/15/2021 05/09/2021 Edema 08/09/2020 11/19/2020 Acute nontraumatic kidney injury 06/28/2020 11/19/2020 COVID-19 06/28/2020 11/22/2020 Stage 3b chronic kidney disease 05/12/2019 05/09/2021 Overview (03/29/2020): Update for Diagnosis Load Hypertensive heart disease w [facility] congestive heart failure 05/12/2019 09/21/2019 Renal disorder due to type 2 diabetes mellitus 05/12/2019 11/01/2022 Right flank pain 05/12/2019 06/28/2020 Coronary arteriosclerosis 07/06/2017 Overview (10/07/2021): Last Assessment & Plan: He has a history of bypass surgery in [place] in 2007. He continues to feel well and is asymptomatic. He should lifelong and we will continue to optimize his other cardiac risk factors. Last Assessment & Plan: He continues to be asymptomatic. He is on aspirin 81 mg daily, amlodipine 10 mg daily, carvedilol 37.5 mg twice daily, hydralazine 50 mg twice daily, rosuvastatin 20 mg daily, fenofibrate 48 mg daily. He will continue on all his medications without change. He is here today for preop clearance prior to having a potential kidney transplant. He recently had an echocardiogram in August which was normal. In preparation for his potential transplant we will evaluate his cardiac status though he is asymptomatic with a nuclear stress test. His echocardiogram has already been completed. His EKG today was sinus bradycardia with PACs, 55 bpm. We will see him in follow-up after stress test been completed for to further cardiac clear him for his potential transplant. Other hyperlipidemia 07/06/2017 021 Overview (05/12/2019): Last Assessment & Plan: He is appropriately on rosuvastatin and fenofibrate. I will try to get his blood work from [facility]. History of coronary artery bypass grafting 05/27/2015 11/01/2022 Coronary atherosclerosis of autologous vein bypass graft 01/29/2012 11/01/2022 Encounters Date Type Department Care Team Description 04/02/2024 Telephone [facility] [address] [place] [address] Meli Ramirez MA 03/27/2024 Telephone [facility] [address] [place] [address] Susu Metzger RN envarsus dose change 03/12/2024 9:15 AM EST Office Visit [facility] [address] [place] [address] Juanito Tinoco PA History of renal transplant (Primary Dx); Personal history of immunosuppressive therapy; Chronic kidney disease stage 2 from Last 3 Months Immunizations Name Administration Dates Next Due Hepatitis B 11/22/2021, 5,02/12/2014,01/12 Influenza Split 02/10/2013,11/23/2011 Influenza Split High Dose Pr eservative Free IM 01/22/2018 Influenza, Quadrivalent, Pre servative Free 02/20/2022,02/04/2019,02/13/2017 Influenza, Quadrivalent, Wit h Preservative 01/18/2016,12/21/2014 Influenza, Unspecified 01/06/2021,2019,11/25/2019,01/12 Pfizer SARS-COV-2 10/31/2021, 1,09/15/2020,04/12 Pneumococcal Conjugate 13-Valent 09/13/2015 Pneumococcal Polysaccharide 02/23/2017, 2 Shingrix 11/03/2019 Td 10/31/2021 Tdap 07/17/2011 Zoster 01/12/2020,11/03/2019,02/12/2014 Family History Medical History Relation Comments Diabetes Father Cancer Mother cousin- breast c ancer Diabetes Mother Diabetes Sibling 1 brother Heart disease Sibling 2 brother Relation Status Comments Father Unknown Mother Unknown Sibling 1 Sibling 2 Social History Tobacco Use Types Packs/Day Years Used Date Smoking Tobacco: Never Smokeless Tobacco: Never Tobacco Cessation:Counseling Given: Not Answered Alcohol Use Standard Drinks/Week Comments Not Currently 0 (1 standard drink = 0.6 oz pur e alcohol) Sex and Gender Information Value Date Recorded Sex Assigned at Not on file Legal Sex Male 4:35 PM EST Gender Identity Not on file Sexual Orientation Not on file Last Filed Vital Signs Vital Sign Reading Time Taken Comments Blood Pressure 126/68 03/12/2024 9:16 AM EST Pulse 74 08/27/2023 8:51 AM EDT Temperature 36.8 ??C (98.2 ??F) 08/27/2023 8:51 AM ED T Respiratory Rate 16 08/27/2023 8:51 AM EDT Oxygen Saturation 97% 08/27/2023 8:51 AM EDT Inhaled Oxygen Concentration - - Weight 81 kg (178 lb 9.6 oz) 03/12/2024 9:16 AM EST Height 170.2 cm (5' 7 ) 03/12/2024 9:16 AM EST Body Mass Index 27.97 03/12/2024 9:16 AM EST Plan of Treatment Upcoming Encounters Date Type Department Care Team (Late st Contact Info) Description 05/07/2024 9:30 AM EST Office Visit [facility] [address] [place] [phone] Robinson Hernandez MD [address] [place] [address] 08/26/2024 9:30 AM EDT Office Visit [facility] [address] [place] [address] Kulwant Harris MD [address] [place] [phone] Health Maintenance Due Date Last Done Comments Diabetes: Ophthalmology Exam 05/12/2019 Diabetes: Pedal Pulse Checked 05/12/2019 Diabetes: Sensory Foot Exam 05/12/2019 Diabetes: Visual Foot Exam 05/12/2019 Diabetes: Hemoglobin A1C 07/01/2024 025, 03/12/2024, 01/09/2024, Additional history exists Hepatitis B Vaccine Aged Out 11/22/2021, 06/01/2014, 02/12/2014, Additional history exists No longer eligible based on patient's age to complete this topic Pneumococcal Vaccine: 65+ Years Completed 07/06/2023, 02/23/2017, 09/13/2015, Additional history exists Influenza Vaccine Completed 02/26/2024, , 01/06/2021, Additional history exists Procedures Procedure Name Priority Date/Time Associated Diagnosis Comments BK VIRUS, DNA, URINE, QUANTITATIVE Routine 03/12/2024 9:42 AM EST Chronic kidney disease stage 2 Personal history of immunosuppressive therapy History of renal transplant Type 2 diabetes mellitus with diabetic chronic kidney disease (HCC) Hypomagnesemia Kidney replaced by transplant 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, not otherwise specified (HCC) Vitamin D deficiency, not otherwise specified Other iron deficiency anemia Chronic gout with tophus, not otherwise specified Poor glycemic control Proteinuria, not otherwise specified BK VIRUS, DNA, QUANTITATIVE Routine 03/12/2024 9:42 AM EST Chronic kidney disease stage 2 Personal history of immunosuppressive therapy History of renal transplant Type 2 diabetes mellitus with diabetic chronic kidney disease (HCC) Hypomagnesemia Kidney replaced by transplant 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, not otherwise specified (HCC) Vitamin D deficiency, not otherwise specified Other iron deficiency anemia Chronic gout with tophus, not otherwise specified Poor glycemic control Proteinuria, not otherwise specified TACROLIMUS LEVEL Routine 03/12/2024 9:42 AM EST Chronic kidney disease stage 2 Personal history of immunosuppressive therapy History of renal transplant Type 2 diabetes mellitus with diabetic chronic kidney disease (HCC) Hypomagnesemia Kidney replaced by transplant 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, not otherwise specified (HCC) Vitamin D deficiency, not otherwise specified Other iron deficiency anemia Chronic gout with tophus, not otherwise specified Poor glycemic control Proteinuria, not otherwise specified PROTEIN / CREATININE RATIO, URINE Routine 03/12/2024 9:42 AM EST Chronic kidney disease stage 2 Personal history of immunosuppressive therapy History of renal transplant Type 2 diabetes mellitus with diabetic chronic kidney disease (HCC) Hypomagnesemia Kidney replaced by transplant 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, not otherwise specified (HCC) Vitamin D deficiency, not otherwise specified Other iron deficiency anemia Chronic gout with tophus, not otherwise specified Poor glycemic control Proteinuria, not otherwise specified URINALYSIS, COMPLETE Routine 03/12/2024 9:42 AM EST Chronic kidney disease stage 2 Personal history of immunosuppressive therapy History of renal transplant Type 2 diabetes mellitus with diabetic chronic kidney disease (HCC) Hypomagnesemia Kidney replaced by transplant 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, not otherwise specified (HCC) Vitamin D deficiency, not otherwise specified Other iron deficiency anemia Chronic gout with tophus, not otherwise specified Poor glycemic control Proteinuria, not otherwise specified HEMOGLOBIN A1C Routine 03/12/2024 9:42 AM EST Chronic kidney disease stage 2 Personal history of immunosuppressive therapy History of renal transplant Type 2 diabetes mellitus with diabetic chronic kidney disease (HCC) Hypomagnesemia Kidney replaced by transplant 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, not otherwise specified (HCC) Vitamin D deficiency, not otherwise specified Other iron deficiency anemia Chronic gout with tophus, not otherwise specified Poor glycemic control Proteinuria, not otherwise specified ALT Routine 03/12/2024 9:42 AM EST Chronic kidney disease stage 2 Personal history of immunosuppressive therapy History of renal transplant Type 2 diabetes mellitus with diabetic chronic kidney disease (HCC) Hypomagnesemia Kidney replaced by transplant 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, not otherwise specified (HCC) Vitamin D deficiency, not otherwise specified Other iron deficiency anemia Chronic gout with tophus, not otherwise specified Poor glycemic control Proteinuria, not otherwise specified AST Routine 03/12/2024 9:42 AM EST Chronic kidney disease stage 2 Personal history of immunosuppressive therapy History of renal transplant Type 2 diabetes mellitus with diabetic chronic kidney disease (HCC) Hypomagnesemia Kidney replaced by transplant 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, not otherwise specified (HCC) Vitamin D deficiency, not otherwise specified Other iron deficiency anemia Chronic gout with tophus, not otherwise specified Poor glycemic control Proteinuria, not otherwise specified CREATINE KINASE Routine 03/12/2024 9:42 AM EST Chronic kidney disease stage 2 Personal history of immunosuppressive therapy History of renal transplant Type 2 diabetes mellitus with diabetic chronic kidney disease (HCC) Hypomagnesemia Kidney replaced by transplant 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, not otherwise specified (HCC) Vitamin D deficiency, not otherwise specified Other iron deficiency anemia Chronic gout with tophus, not otherwise specified Poor glycemic control Proteinuria, not otherwise specified LIPID PANEL Routine 03/12/2024 9:42 AM EST Chronic kidney disease stage 2 Personal history of immunosuppressive therapy History of renal transplant Type 2 diabetes mellitus with diabetic chronic kidney disease (HCC) Hypomagnesemia Kidney replaced by transplant 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, not otherwise specified (HCC) Vitamin D deficiency, not otherwise specified Other iron deficiency anemia Chronic gout with tophus, not otherwise specified Poor glycemic control Proteinuria, not otherwise specified MAGNESIUM Routine 03/12/2024 9:42 AM EST Chronic kidney disease stage 2 Personal history of immunosuppressive therapy History of renal transplant Type 2 diabetes mellitus with diabetic chronic kidney disease (HCC) Hypomagnesemia Kidney replaced by transplant 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, not otherwise specified (HCC) Vitamin D deficiency, not otherwise specified Other iron deficiency anemia Chronic gout with tophus, not otherwise specified Poor glycemic control Proteinuria, not otherwise specified TSH Routine 03/12/2024 9:42 AM EST Chronic kidney disease stage 2 Personal history of immunosuppressive therapy History of renal transplant Type 2 diabetes mellitus with diabetic chronic kidney disease (HCC) Hypomagnesemia Kidney replaced by transplant 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, not otherwise specified (HCC) Vitamin D deficiency, not otherwise specified Other iron deficiency anemia Chronic gout with tophus, not otherwise specified Poor glycemic control Proteinuria, not otherwise specified T4, FREE Routine 03/12/2024 9:42 AM EST Chronic kidney disease stage 2 Personal history of immunosuppressive therapy History of renal transplant Type 2 diabetes mellitus with diabetic chronic kidney disease (HCC) Hypomagnesemia Kidney replaced by transplant 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, not otherwise specified (HCC) Vitamin D deficiency, not otherwise specified Other iron deficiency anemia Chronic gout with tophus, not otherwise specified Poor glycemic control Proteinuria, not otherwise specified URIC ACID Routine 03/12/2024 9:42 AM EST Chronic kidney disease stage 2 Personal history of immunosuppressive therapy History of renal transplant Type 2 diabetes mellitus with diabetic chronic kidney disease (HCC) Hypomagnesemia Kidney replaced by transplant 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, not otherwise specified (HCC) Vitamin D deficiency, not otherwise specified Other iron deficiency anemia Chronic gout with tophus, not otherwise specified Poor glycemic control Proteinuria, not otherwise specified FERRITIN Routine 03/12/2024 9:42 AM EST Chronic kidney disease stage 2 Personal history of immunosuppressive therapy History of renal transplant Type 2 diabetes mellitus with diabetic chronic kidney disease (HCC) Hypomagnesemia Kidney replaced by transplant 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, not otherwise specified (HCC) Vitamin D deficiency, not otherwise specified Other iron deficiency anemia Chronic gout with tophus, not otherwise specified Poor glycemic control Proteinuria, not otherwise specified IRON PANEL (FE, TIBC, TSAT) Routine 03/12/2024 9:42 AM EST Chronic kidney disease stage 2 Personal history of immunosuppressive therapy History of renal transplant Type 2 diabetes mellitus with diabetic chronic kidney disease (HCC) Hypomagnesemia Kidney replaced by transplant 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, not otherwise specified (HCC) Vitamin D deficiency, not otherwise specified Other iron deficiency anemia Chronic gout with tophus, not otherwise specified Poor glycemic control Proteinuria, not otherwise specified VITAMIN D 25 HYDROXY Routine 03/12/2024 9:42 AM EST Chronic kidney disease stage 2 Personal history of immunosuppressive therapy History of renal transplant Type 2 diabetes mellitus with diabetic chronic kidney disease (HCC) Hypomagnesemia Kidney replaced by transplant 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, not otherwise specified (HCC) Vitamin D deficiency, not otherwise specified Other iron deficiency anemia Chronic gout with tophus, not otherwise specified Poor glycemic control Proteinuria, not otherwise specified PTH, INTACT Routine 03/12/2024 9:42 AM EST Chronic kidney disease stage 2 Personal history of immunosuppressive therapy History of renal transplant Type 2 diabetes mellitus with diabetic chronic kidney disease (HCC) Hypomagnesemia Kidney replaced by transplant 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, not otherwise specified (HCC) Vitamin D deficiency, not otherwise specified Other iron deficiency anemia Chronic gout with tophus, not otherwise specified Poor glycemic control Proteinuria, not otherwise specified RENAL FUNCTION PANEL Routine 03/12/2024 9:42 AM EST Chronic kidney disease stage 2 Personal history of immunosuppressive therapy History of renal transplant Type 2 diabetes mellitus with diabetic chronic kidney disease (HCC) Hypomagnesemia Kidney replaced by transplant 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, not otherwise specified (HCC) Vitamin D deficiency, not otherwise specified Other iron deficiency anemia Chronic gout with tophus, not otherwise specified Poor glycemic control Proteinuria, not otherwise specified CBC AND DIFFERENTIAL Routine 03/12/2024 9:42 AM EST Chronic kidney disease stage 2 Personal history of immunosuppressive therapy History of renal transplant Type 2 diabetes mellitus with diabetic chronic kidney disease (HCC) Hypomagnesemia Kidney replaced by transplant 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, not otherwise specified (HCC) Vitamin D deficiency, not otherwise specified Other iron deficiency anemia Chronic gout with tophus, not otherwise specified Poor glycemic control Proteinuria, not otherwise specified MICROSCOPIC EXAMINATION - DO NOT USE Routine 03/12/2024 9:42 AM EST from Last 3 Months Results * (ABNORMAL) TSH (03/12/2024 9:42 AM EST) TSH 5.310(H) 0.450 - 4.500 uIU/mL [facility] Blood 03/12/2024 9:42 AM EST 03/12/2024 Juanito RODRÍGUEZ LAB BLOOD ORDERABLES Final Re sult [facility] [address] [place] [address] * Urinalysis, Complete w/reflex to Culture (03/12/2024 9:42 AM EST) Specific [place], Urine 1.021 1.005 - 1.030 [facility] pH Urine 6.0 5.0 - 7.5 [facility] Color, Urine Yellow Yellow [facility] [phone] Appearance Urine Clear Clear [facility] WBC Esterase Urine Negative Negative [facility] Protein, Ur Negative Negative/Tra ce [facility] Glucose, Ur Negative Negative [facility] Ketones, Urine Negative Negative [facility] Blood Urine Negative Negative [facility] [phone] Bilirubin Urine Negative Negative [facility] [phone] Urobilinogen Urine 0.2 0.2 - 1.0 mg/dL [facility] Nitrite, Urine Negative Negative [facility] [phone] Microscopic Examination Comment [facility] [phone] Comment:Microscopic follows if indicated. Other Microsc. Observations See below: [facility] Comment:Microscopic was aj cated and was performed. URINALYSIS REFLEX Comment [facility] Comment:This specimen will n ot reflex to a Urine Culture. Urine (Urine, Clean Catch) 03/12/2024 9:42 AM EST 03/12/2024 us Juanito RODRÍGUEZ LAB URINE ORDERABLES Final Re sult [facility] [address] [place] [address] * Microscopic Examination (03/12/2024 9:42 AM EST) WBC, Urine None seen 0 - 5 /hpf [facility] RBC, Urine None seen 0 - 2 /hpf [facility] Squamous Epithelial, Urine None seen 0 - 10 /hpf [facility] Casts None seen None seen /lpf [facility] Bacteria, Urine None seen None seen/Few [facility] 03/12/2024 9:42 AM EST 03/12/2024 Juanito RODRÍGUEZ LAB MICROBIOLOGY - GENERAL OR DERABLES Final [facility] [address] [place] [address] * Tacrolimus level (03/12/2024 9:42 AM EST) Tacrolimus Lvl 5.2 2.0 - 20.0 ng/mL [facility] Comment: ?Trough (immediately following ?transplant) ? 15.0 ?Trough (steady state, 2 weeks or ?more after transplant): ?3.0 - 8.0 ?Performed by LC-MS/MS technology. Blood (Blood, Venous) 03/12/2024 9:42 AM EST 03/12/2024 Narrative [facility] - 03/15/2024 5:06 AM EST Test(s) [id number] ([id number]), Blood was developed and its performance characteristics determined by [facility]. It has not been cleared or approved by the Food and Drug Administration. Juanito RODRÍGUEZ LAB BLOOD ORDERABLES Final Re [facility]ult [facility] [address] [place] [address] * Iron Panel (Fe, TIBC, TSAT) (03/12/2024 9:42 AM EST) TIBC 392 250 - 450 ug/dL [facility] UIBC 303 111 - 343 ug/dL [facility] Iron 89 38 - 169 ug/dL [facility] Iron Saturation (TSat) 23 15 - 55 % [facility] Blood (Blood, Venous) 03/12/2024 9:42 AM EST 03/12/2024 Juanito RODRÍGUEZ LAB BLOOD ORDERABLES Final Re sult Performing Organization Address [facility]/ZIP Co de Phone Number [facility] [address] [place] [address] * Protein, Total, Random Urine w/Creatinine (Protein/Creat Ratio) (03/12/2024 9:42 AM EST) Creatinine, Ur 135.4 Not Estab. mg/dL [facility] Protein, Ur 17.9 Not Estab. mg/dL [facility] Urine Protein/Creatin ine Ratio 132 0 - 200 mg/g creat [facility] Urine (Urine, Clean Catch) 03/12/2024 9:42 AM EST 03/12/2024 Juanito RODRÍGUEZ LAB URINE ORDERABLES Final Re sult [facility] [address] [place] [address] * BK Virus Urine, Quant PCR (03/12/2024 9:42 AM EST) BK VIRUS PCR, QUANT, U Negative Negative IU/mL [facility] Comment: No BK DNA detected. The linear range of the assay is 200 - 100,000,000 IU/ml Urine (Urine, Clean Catch) 03/12/2024 9:42 AM EST 03/12/2024 Juanito RODRÍGUEZ LAB URINE ORDERABLES Final Re sult Performing Organization Address [facility] Co de Phone Number [facility] [address] [place] [address] * BK Virus DNA, Quant PCR (03/12/2024 9:42 AM EST) BK VIRUS DNA, PCR Negative Negative IU/mL [facility] Comment: No BK DNA detected. The linear range of the assay is 22 - 100,000,000 IU/mL. Blood (Blood, Venous) 03/12/2024 9:42 AM EST 03/12/2024 Juanito RODRÍGUEZ LAB BLOOD ORDERABLES Final Re sult Performing Organization Address City/[facility] Co de Phone Number [facility] [address] [place] [address] * Vitamin D 25 Hydroxy (03/12/2024 9:42 AM EST) Vitamin D, 25-OH, Total 42.5 30.0 - 100.0 ng/mL [facility] Comment: Vitamin D deficiency has been defined by the [place] of Medicine and an Endocrine Society practice guideline as a level of serum 25-OH vitamin D less than 20 ng/mL (1,2). The Endocrine Society went on to further define vitamin D insufficiency as a level between 21 and 29 ng/mL (2). 1. IOM ([place] of Medicine). 2010. Dietary reference ?? intakes for calcium and D. Angela [place]: The ?? National [employer]. 2. Todd MF, [place] GOODRICH, Ariel DOWNEY, et al. ?? Evaluation, treatment, and prevention of vitamin D ?? deficiency: an Endocrine Society clinical practice ?? guideline. JCEM. 2010; 96(7):1911-30. Blood (Blood, Venous) 03/12/2024 9:42 AM EST 03/12/2024 Juanito RODRÍGUEZ LAB BLOOD ORDERABLES Final Re sult [facility] [address] [place] [address] * CBC and Differential (03/12/2024 9:42 AM EST) WBC 5.5 3.4 - 10.8 x10E3/uL [facility] RBC 4.44 4.14 - 5.80 x10E6/uL [facility] Hemoglobin 14.2 13.0 - 17.7 g/dL [facility] Hematocrit 41.8 37.5 - 51.0 % [facility] MCV 94 79 - 97 fL [facility] MCH 32.0 26.6 - 33.0 pg [facility] MCHC 34.0 31.5 - 35.7 g/dL [facility] RDW 13.4 11.6 - 15.4 % [facility] Platelets 168 150 - 450 x10E3/uL [facility] Neutrophils Relative 61 Not Estab. % [facility] Lymphocytes Relative 29 Not Estab. % [facility] Monocytes 10 Not Estab. % [facility] Eosinophils Relative 0 Not Estab. % [facility] Basophils Relative 0 Not Estab. % [facility] Neutrophils Absolute 3.3 1.4 - 7.0 x10E3/uL [facility] Lymphocytes Absolute 1.6 0.7 - 3.1 x10E3/uL [facility] Monocytes Absolute 0.5 0.1 - 0.9 x10E3/uL [facility] Eosinophils Absolute 0.0 0.0 - 0.4 x10E3/uL [facility] Basophils Absolute 0.0 0.0 - 0.2 x10E3/uL [facility] Immature Granulocytes 0 Not Estab. % [facility] Immature Grans (Absolute) 0.0 0.0 - 0.1 x10E3/uL [facility] Blood (Blood, Venous) 03/12/2024 9:42 AM EST 03/12/2024 Juanito RODRÍGUEZ LAB BLOOD ORDERABLES Final Re sult [facility] [address] [place] [address] * Uric Acid (03/12/2024 9:42 AM EST) Uric Acid 4.9 3.8 - 8.4 mg/dL [facility] Comment:Therapeutic target f or gout patients: <6.0 Blood (Blood, Venous) 03/12/2024 9:42 AM EST 03/12/2024 Juanito RODRÍGUEZ LAB BLOOD ORDERABLES Final Re sult [facility] [address] [place] [address] * ALT (03/12/2024 9:42 AM EST) ALT (SGPT) 17 0 - 44 IU/L [facility] Blood (Blood, Venous) 03/12/2024 9:42 AM EST 03/12/2024 Juanito RODRÍGUEZ LAB BLOOD ORDERABLES Final Re sult Performing Organization Address City/[facility]/ZIP Co de Phone Number [facility] [address] [place] [address] * AST (03/12/2024 9:42 AM EST) AST (SGOT) 23 0 - 40 IU/L [facility] Blood (Blood, Venous) 03/12/2024 9:42 AM EST 03/12/2024 Juanito RODRÍGUEZ LAB BLOOD ORDERABLES Final Re sult [facility] [employer] [facility] [address] [place] [address] * (ABNORMAL) Free T4 (03/12/2024 9:42 AM EST) Free T4 1.85(H) 0.82 - 1.77 ng/dL [facility] Blood (Blood, Venous) 03/12/2024 9:42 AM EST 03/12/2024 Juanito RODRÍGUEZ LAB BLOOD ORDERABLES Final Re sult Performing Organization Address City/[facility]/ZIP Co de Phone Number [facility] [address] [place] [address] * PTH, Intact (03/12/2024 9:42 AM EST) PTH 45 15 - 65 pg/mL [facility] Blood (Blood, Venous) 03/12/2024 9:42 AM EST 03/12/2024 Juanito RODRÍGUEZ LAB BLOOD ORDERABLES Final Re sult Performing Organization Address [facility]/ZIP Co de Phone Number [facility] [address] [place] [address] * Magnesium (03/12/2024 9:42 AM EST) Pathologist [facility] Magnesium 1.6 1.6 - 2.3 mg/dL [facility] Blood (Blood, Venous) 03/12/2024 9:42 AM EST 03/12/2024 Juanito RODRÍGUEZ LAB BLOOD ORDERABLES Final Re sult Performing Organization Address City/[facility] Co de Phone Number [facility] [address] [place] [address] * (ABNORMAL) Hemoglobin A1c (03/12/2024 9:42 AM EST) Hemoglobin A1C 8.1(H) 4.8 - 5.6 % [facility] Comment: ? Prediabetes: 5.7 - 6.4 ? Diabetes: >6.4 ? Glycemic control for adults with diabetes: <7.0 Blood (Blood, Venous) 03/12/2024 9:42 AM EST 03/12/2024 Juanito RODRÍGUEZ LAB BLOOD ORDERABLES Final Re sult Performing Organization Address City/[facility]/ZIP Co de Phone Number [facility] [address] [place] [address] * Ferritin (03/12/2024 9:42 AM EST) Ferritin 115 30 - 400 ng/mL [facility] Blood (Blood, Venous) 03/12/2024 9:42 AM EST 03/12/2024 Juanito RODRÍGUEZ LAB BLOOD ORDERABLES Final Re sult Performing Organization Address [facility] Co de Phone Number [facility] [address] [place] [address] * CK (03/12/2024 9:42 AM EST) Creatine Kinase (CK/CPK) 115 41 - 331 U/L [facility] Blood (Blood, Venous) 03/12/2024 9:42 AM EST 03/12/2024 Juanito RODRÍGUEZ LAB BLOOD ORDERABLES Final Re sult Performing Organization Address City/[facility]/ZIP Co de Phone Number [facility] [address] [place] [address] * (ABNORMAL) Renal Function Panel (03/12/2024 9:42 AM EST) Glucose 155(H) 70 - 99 mg/dL [facility] BUN 11 8 - 27 mg/dL [facility] Creatinine 1.05 0.76 - 1.27 mg/dL [facility] eGFR CKD-EPI CR 2020 74 >59 mL/min/1.7 3 [facility] BUN/Creatinine Ratio 10 10 - 24 [facility] Sodium 139 134 - 144 mmol/L [facility] Potassium 4.5 3.5 - 5.2 mmol/L [facility] Chloride 100 96 - 106 mmol/L [facility] Bicarbonate (CO2) 25 20 - 29 mmol/L [facility] Calcium 10.0 8.6 - 10.2 mg/dL [facility] Albumin 4.5 3.8 - 4.8 g/dL [facility] Phosphorus 3.9 2.8 - 4.1 mg/dL [facility] Blood (Blood, Venous) 03/12/2024 9:42 AM EST 03/12/2024 us Juanito RODRÍGUEZ LAB BLOOD ORDERABLES Final Re sult [facility] [address] [place] [address] * (ABNORMAL) Lipid panel (03/12/2024 9:42 AM EST) Cholesterol 107 100 - 199 mg/dL [facility] Triglycerides 202(H) 0 - 149 mg/dL [facility] HDL 32(L) >39 mg/dL [facility] VLDL Cholesterol Ramone 33 5 - 40 mg/dL [facility] LDL Calculated 42 0 - 99 mg/dL [facility] Blood (Blood, Venous) 03/12/2024 9:42 AM EST 03/12/2024 Juanito RODRÍGUEZ LAB BLOOD ORDERABLES Final Re sult [facility] [address] [place] [address] from Last 3 Months Insurance [facility] ([id number]) [facility] ([id number]) Care Teams Membership Coordinator Relationship Specialty Start Date End Date Brittney Leger [facility] [address] [id number] PCP - General Family Medicine 10/20/19
--- OUTSIDE RECORDS SUMMARY | 2024-04-30 10:11 | XMS_ITS | Clinical Summary ---
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 Name Role Phone Unavailable Primary Care Provider Unavailabl e Social History Tobacco Use Types Packs/Day Years Used Date Smoking Tobacco: Never Assessed Sex and Gender Information Value Date Recorded Sex Assigned at Male 10/05/2022 9:39 AM EDT Gender Identity Male 10/05/2022 9:39 AM EDT Sexual Orientation Heterosexual (straight) 10/05 9:39 AM EDT Plan of Treatment Health Maintenance Due Date Last Done Comments Hepatitis C Virus Screening 1945 DTaP/Tdap/Td Vaccines (1 - Tdap) 08/09/1966 Pneumococcal Vaccines 50+ (1 of 1 - PCV) 08/09/1997 Zoster (Shingles) Vaccine (1 of 2) 08/09/1997 RSV Vaccine 60 years and older and Patients (1 - 1-dose 75+ series) 08/09/2022 Influenza Vaccine 10/25/2023 12/26/2022, , 01/06/2021, Additional history exists COVID-19 Vaccine (2023- season) 2023 10/31/2021, 10/06/2020, 09/15/2020, Additional history exists Hepatitis B Vaccines Aged Out No long er eligible based on patient's age to complete this topic
[2024-04-30 10:57] LABS: MANUAL DIFF FLAG NO
[2024-04-30 11:05] LABS: Basophils Percent Auto 0.2 % (0-2); Eosinophils Absolute Auto 0.1 X10*3/uL (0.0-0.4); Eosinophils Percent Auto 1.3 % (0-4); Hemoglobin 13.9 g/dl (14.0-18.0); Imm Gran Abs Auto 0.01 X10*3/uL (0.00-0.03); Imm Gran Pct Auto 0.2 % (0.0-0.4); Lymphocytes Absolute Auto 1.6 X10*3/uL (1.2-4.9); Lymphocytes Percent Auto 30.3 % (20-40); Mean Corpuscular HGB Conc 34.8 g/dl (31.0-36.0); Mean Corpuscular Hemoglobin 31.4 pg (27.0-33.0); Mean Corpuscular Volume 90.5 fL (80.0-98.0); Mean Platelet Volume 10.2 fL (9.4-12.4); Monocytes Absolute Auto 0.5 X10*3/uL (0.1-1.2); Monocytes Percent Auto 10.3 % (2-11); Neutrophils Percent Auto 57.7 % (45-73); Platelet Count 186 X10*3/uL (160-400); Red Blood Count 4.42 X10*6/uL (4.60-5.80); Red Cell Distribution Width 12.8 % (11.0-16.0); White Blood Count 5.2 X10*3/uL (4.8-10.8)
[2024-04-30 11:24] LABS: Alanine Aminotransferase 13 U/L (0-40); Albumin Level 4.4 g/dL (3.5-5.0); Alkaline Phosphatase 37 U/L (39-117); Anion Gap 11 (12-20); Aspartate Amino Transferase 24 U/L (5-37); Bilirubin Direct 0.3 mg/dL (0.0-0.5); Bilirubin Total 0.7 mg/dL (0.0-1.0); Blood Urea Nitrogen 9 mg/dL (9-16); Calcium 9.7 mg/dL (8.4-10.2); Carbon Dioxide 28 mmol/L (22-29); Chloride 106 mmol/L (96-108); Cholesterol 98 mg/dL (<200); Estimated Glomerular Filt Rate 58; Glucose Random 153 mg/dL (60-115); HDL Cholesterol 30 mg/dL (>40); Iron 73 mcg/dL (45-160); LDL Cholesterol Calculated 36 mg/dL (<100); Percent Iron Saturation 23 % (15-50); Potassium 5.3 mmol/L (3.3-5.1); Sodium 140 mmol/L (135-145); Total Iron Binding Capacity 312 mcg/dL (228-428); Triglycerides 160 mg/dL (<150); Unsaturated Iron Binding 239 ug/dL
[2024-04-30 11:43] LABS: Free T4 (Free Thyroxine) 1.18 ng/dL (0.71-1.85); Thyroid Stimulating Hormone 4.27 uIU/mL (0.32-4.0); Vitamin D 25-OH Total 69.6 ng/mL (>30)
[2024-04-30 11:49] LABS: Folate 12.4 ng/mL (> or = 4.0); Vitamin B12 553 pg/mL (200-900)
== END 2024-04-30 09:38 | disposition home or self-care (01) ==
LOC: HO.HHCL 09:37
PROVIDERS: Visit Provider Family Medicine
DX: Z00.00 Encounter for general adult medical examination without abnormal findings (principal); I12.9 Hypertensive chronic kidney disease with stage 1 through stage 4 chronic kidney disease, or unspecified chronic kidney disease; E11.22 Type 2 diabetes mellitus with diabetic chronic kidney disease; N18.31 Chronic kidney disease, stage 3a; E78.49 Other hyperlipidemia; Z79.4 Long term (current) use of insulin
CPT/HCPCS: 36415; 80048; 80061; 80076; 82306; 82607; 82746; 83540; 84439; 84443; 85025